=== PATIENT | male | born 1945 | race Caucasian/White ===

== ENCOUNTER 2017-07-12 12:58 | Emergency (ER) | payer MEDICARE, OTHER ==
[~2017-07-12 12:58] MED LIST: CYCL1PAK PO; LISI40TA PO; MOBI7.5T PO; OCUV PO; PROT40TA PO; SIMV20 PO; TAB-TAB PO; VITA10002 PO
[2017-07-12 13:12] VITALS: BP 167/77; PULSE 95; RESP 20; TEMP 98.9; O2SAT 97
--- NOTE | 2017-07-12 13:27 | PD ---
HPI Chief Complaint: Musculoskeletal Complaint Time Seen by Provider: 13:26 Travel History International Travel<30 days: No Contact w/Intl Traveler<30days: No Traveled to known affect area: No History of Present Illness HPI 72-year-old patient came to the emergency room with history of left knee pain and swelling that started this time about a week ago. Patient says that a month ago he was in [place] on vacation when it started there. There was no associated trauma. Patient went to the emergency room and was given some medication for 3 days after taking which the pain and swelling had subsided. However once it started 1 week ago patient was already back in [facility] and went to see his orthopedist who had done the knee replacement surgery. He had done an x-ray in his office that he discussed with the patient that it was not related to his knee joint or hardware. Today patient says the swelling has been more than it has been in the past and he wanted to come in and be checked out. He says the knee feels warm. There is pain associated worse upon walking. Vital signs are stable otherwise. Patient takes one baby aspirin every day. [facility] Past Medical History Narrative Medical List of his past medical, surgical, social and family history reviewed from the nursing note. Arthritis: Yes Blood Disorders: No Cancer: No Cardiovascular Problems: No High Cholesterol: Yes Chemotherapy: No Diabetes: No Diminished Hearing: No Endocrine: No Gastrointestinal Disorders: Yes (REFLUX) GERD: Yes Glaucoma: Yes Genitourinary: No Hepatitis: No Hiatal Hernia: Yes Hypertension: Yes Immune Disorder: No Implanted Vascular Access Dvce: Yes Medical other: Yes (reflux,stomach ulcers,hiatel hernia.arthritis neck and back problems) Musculoskeletal: Yes (CHRONIC BACK PAIN, NECK, ARTHRITIS) Neurologic: Yes (NUMNESS, TINGLING BILAT LEGS) Psychiatric: No Respiratory: No Immunizations Current: Yes Radiation Therapy: No Thyroid Disease: No Ulcer: Yes Tetanus Vaccination: > 5 Years Influenza Vaccination: Yes Past Surgical History Abdominal Surgery: Yes (BILAT INGUINAL HERNIA REPAIR) AICD: No Arteriovenous Shunt: No Body Medical Devices: MESH HERNIA REPAIR, CERVICAL HARDWARE, lumbar rods Cardiac Surgery: No Ear Surgery: No Endocrine Surgery: No Eye Surgery: No Genitourinary Surgery: No Gynecologic Surgery: No Insulin Pump: No Joint Replacement: Yes (BILAT KNEES) Oral Surgery: Yes (sinus surgery) Pacemaker: No Thoracic Surgery: No Other Surgery: Yes (cervical fusion 3,4,5 ) Family History Family Hypercholesterolemia: Yes (high lipids) Social History Alcohol Use: Yes (Occ.) Tobacco Use: No Substance Use: No Allergies-Medications (Allergen,Severity, Reaction): Coded Allergies: No Known Allergies (Verified , 06/26/15) Comments No known drug allergies. Reported Meds & Prescriptions Reported Meds & Active Scripts Active Reported Protonix (Pantoprazole Sodium) 40 Mg Tab 40 Mg PO DAILY Multi-Vitamin Daily (Multiple Vitamin) 1 Tab Tab 1 Tab PO DAILY Meloxicam 7.5 Mg Tab 7.5 Mg PO DAILY Lisinopril 40 Mg Tab 40 Mg PO DAILY Simvastatin 80 Mg Tab 80 Mg PO DAILY Aspirin Low Dose (Aspirin) 81 Mg Chew 81 Mg CHEW DAILY Narrative Medication List of his home medications reviewed from the nursing note Review of Systems Except as stated in HPI: all other systems reviewed are Neg Musculoskeletal: Positive: Pain, Atrophy Physical Exam Narrative GENERAL: Awake, alert, no obvious distress SKIN: Focused skin assessment warm/dry. HEAD: Atraumatic. Normocephalic. EYES: Pupils equal and round. No scleral icterus. No injection or drainage. ENT: No nasal bleeding or discharge. Mucous membranes pink and moist. NECK: Trachea midline. No JVD. CARDIOVASCULAR: Regular rate and rhythm. No murmur appreciated. RESPIRATORY: No accessory muscle use. Clear to auscultation. Breath sounds equal bilaterally. GASTROINTESTINAL: Abdomen soft, non-tender, nondistended. Hepatic and splenic margins not palpable. MUSCULOSKELETAL: No obvious deformities. No clubbing. No cyanosis. No edema. Left knee is swollen and slightly warm to touch. No erythema NEUROLOGICAL: Awake and alert. No obvious cranial nerve deficits. Motor grossly within normal limits. Normal speech. PSYCHIATRIC: Appropriate mood and affect; insight and judgment normal. Data Data Last Documented VS Orders Orders Complete Blood Count With Diff (07/12/17 13:32) Basic Metabolic Panel (Bmp) (07/12/17 13:32) C-Reactive Protein (Crp) (07/12/17 13:32) Uric Acid (07/12/17 13:32) Westergren Sedimentation Rate (07/12/17 13:32) Knee, Complete (4vws) (07/12/17 ) Synovial Fluid Crystals (07/12/17 15:40) Fluid Culture And Gram Stain (07/12/17 15:40) ^ Knee Immobilizer (07/12/17 15:40) Ed Discharge Order (07/12/17 15:45) Splint Or Brace Apply/Monitor (07/12/17 15:55) Labs Laboratory Tests Test 07/12/17 13:40 07/12/17 15:45 White Blood Count 5.4 TH/MM3 Red Blood Count 4.21 MIL/MM3 Hemoglobin 12.6 GM/DL Hematocrit 38.1 % Mean Corpuscular Volume 90.5 FL Mean Corpuscular Hemoglobin 30.0 PG Mean Corpuscular Hemoglobin Concent 33.1 % Red Cell Distribution Width 14.8 % Platelet Count 251 TH/MM3 Mean Platelet Volume 8.7 FL Neutrophils (%) (Auto) 68.8 % Lymphocytes (%) (Auto) 18.5 % Monocytes (%) (Auto) 7.8 % Eosinophils (%) (Auto) 3.4 % Basophils (%) (Auto) 1.5 % Neutrophils # (Auto) 3.7 TH/MM3 Lymphocytes # (Auto) 1.0 TH/MM3 Monocytes # (Auto) 0.4 TH/MM3 Eosinophils # (Auto) 0.2 TH/MM3 Basophils # (Auto) 0.1 TH/MM3 CBC Comment DIFF FINAL Differential Comment Erythrocyte Sedimentation Rate 3 mm/hr Blood Urea Nitrogen 16 MG/DL Creatinine 1.10 MG/DL Random Glucose 117 MG/DL Calcium Level 8.9 MG/DL Uric Acid 4.2 MG/DL Sodium Level 142 MEQ/L Potassium Level 4.6 MEQ/L Chloride Level 111 MEQ/L Carbon Dioxide Level 27.3 MEQ/L Anion Gap 4 MEQ/L Estimat Glomerular Filtration Rate 65 ML/MIN C-Reactive Protein LESS THAN 0.29 MG/DL Synovial Fluid Crystals NONE MDM Medical Decision Making Medical Screen Exam Complete: Yes Emergency Medical Condition: Yes Medical Record Reviewed: Yes Differential Diagnosis Gout arthritis, reactive arthritis, septic arthritis Narrative Course 2:27 PM CRP, sed rate and uric acid is pending. Rest of the blood test results are back and within normal limit. X-ray of the knee shows moderate joint effusion. Patient would require at least a therapeutic arthrocentesis. 3:42 PM CRP is within normal limit. The sed rate and uric acid is still pending. I just finished tapping the knee joint. 60 mL's of bloody fluid was aspirated out. Patient tolerated the procedure well. Please refer to my procedure note. I am sending the fluid for crystals and Gram stain and culture. Patient will be sent home on knee immobilizer. He is already on diclofenac that was started by his orthopedist. I have asked him to follow-up with his orthopedist. Procedures Procedure Narrative Knee arthrocentesis: The area was cleaned with Betadine swabs 3. Medial superior approach was taken. The area was infiltrated with 1% lidocaine about 3 mL. 20 mL syringe attached to a an 18-gauge needle was inserted into the knee joint and fluid aspirated. Instantly blood-tinged serous fluid was aspirated. 40 mL was aspirated. When no more fluid could be aspirated out the needle was taken out and pressure was held. Dressing and knee immobilizer will be applied by the nurse. Patient tolerated the procedure well. EKG Prior to Arrival: No Diagnosis Primary Impression: Knee pain Qualified Codes: M25.562 - Pain in left knee Additional Impression: Knee effusion Qualified Codes: M25.462 - Effusion, left knee Referrals: Primary Care Physician Additional Instructions: Keep the knee immobilizer on at all times except taking shower. Please follow- up with the orthopedist as soon as possible. Return to the ER if condition worsens or any other new concerns. Med/Other Pt SpecificInfo: No Change to Meds Disposition: 01 DISCHARGE HOME Condition: Stable Korey Walsh MD July 12, 2017 13:27
[2017-07-12] MEDS ORDERED: PROT40TA PO (13:28)
[2017-07-12] MEDS ORDERED: MELO7.5T27 PO (13:28)
[2017-07-12] MEDS ORDERED: MULT-65 PO (13:28)
[2017-07-12] MEDS ORDERED: SIMV80TA PO (13:28)
[2017-07-12] MEDS ORDERED: LISI40TA PO (13:28)
[2017-07-12] MEDS ORDERED: ASPI81CH6 CHEW (13:28)
[2017-07-12 14:03] LABS: CHLORIDE 111 MEQ/L (98-107); SODIUM (NA) 142 MEQ/L (136-145)
[2017-07-12 14:05] LABS: CALCIUM 8.9 MG/DL (8.5-10.1)
[2017-07-12 14:06] LABS: BICARBONATE 27.3 MEQ/L (21.0-32.0); BLOOD UREA NITROGEN 16 MG/DL (7-18); GLUCOSE,RANDOM 117 MG/DL (74-106)
--- NOTE | 2017-07-12 14:06 | RADRPT ---
EXAM DATE/TIME: 07/12/2017 13:45 [place] COMPARISON: No previous studies available for comparison. INDICATIONS : Left knee swelling, no known injury MEDICAL HISTORY : None. SURGICAL HISTORY : Total knee replacement, left. Total knee replacement, right. ENCOUNTER: Initial ACUITY: 3 days PAIN SCORE: 0/10 LOCATION: Left knee FINDINGS: 4 views of the left knee. Bone alignment within normal limits. No evidence of fracture. Total knee p rosthesis in place. No abnormal lucency at the bone prosthesis interfaces. A moderate-sized joint eff usion. CONCLUSION: Total knee prosthesis in place. Moderate-sized joint effusion. No evidence of fracture. Lan Ardon MD on July 12, 2017 at 14:00 Board Certified Radiologist. This report was verified electronically.
[2017-07-12 14:09] LABS: GLOMERULAR FILTRATION RATE 65 ML/MIN (>89)
[2017-07-12 14:11] LABS: AUTOMATED NEUTROPHIL # 3.7 TH/MM3 (1.8-7.7); BASOPHIL # 0.1 TH/MM3 (0-0.2); BASOPHIL % 1.5 % (0.0-2.0); EOSINOPHIL # 0.2 TH/MM3 (0-0.4); EOSINOPHIL % 3.4 % (0.0-4.0); HEMATOCRIT 38.1 % (39.0-51.0); HEMOGLOBIN 12.6 GM/DL (13.0-17.0); LYMPH % 18.5 % (9.0-44.0); MEAN CELL VOLUME 90.5 FL (80.0-100.0); MEAN CORPUSCULAR HGB CONC 33.1 % (32.0-36.0); MEAN PLATELET VOLUME 8.7 FL (7.0-11.0); MONO % 7.8 % (0.0-8.0); MONOCYTE # 0.4 TH/MM3 (0-0.9); NEUT % 68.8 % (16.0-70.0); PLATELET COUNT 251 TH/MM3 (150-450); RED BLOOD COUNT 4.21 MIL/MM3 (4.50-5.90); RED CELL DISTRIBUTION WIDTH 14.8 % (11.6-17.2); WHITE BLOOD COUNT 5.4 TH/MM3 (4.0-11.0)
[2017-07-12 14:43] LABS: C-REACTIVE PROTEIN LESS THAN 0.29 MG/DL (0.00-0.30)
[2017-07-12 15:55] VITALS: BP 186/90; PULSE 88; RESP 16; O2SAT 96
== END 2017-07-12 15:59 | disposition home or self-care (01) ==
LOC: PHED 12:58
DX: M25.562 Pain in left knee (principal); M25.462 Effusion, left knee; M19.90 Unspecified osteoarthritis, unspecified site; E78.00 Pure hypercholesterolemia, unspecified; K21.9 Gastro-esophageal reflux disease without esophagitis; I10 Essential (primary) hypertension; G89.29 Other chronic pain; M54.9 Dorsalgia, unspecified; Z96.653 Presence of artificial knee joint, bilateral
CPT/HCPCS: 20610; 73564; 80048; 84550; 85025; 85652; 86140; 87070; 87205; 89060

== ENCOUNTER 2017-10-29 05:40 | Inpatient (IN) ==
[2017-10-29] MEDS ORDERED: Morphine Inj 4 MG/ML Vial IV.PUSH ONE ×2 (05:50→05:58)
[2017-10-29] MEDS ORDERED: dilTIAZem Inj 125 MG in Sodium Chlor 0.9% Inj 100 ML IV.CONT PRN (05:51)
[2017-10-29] MEDS ORDERED: HYDROmorphone PF Inj 2 MG/ML Vial IV.PUSH ONE ×2 (06:06→07:09)
[2017-10-29 06:16] LABS: Baso # (Auto) 0.2 th/mm3 (0.0-0.2); Baso % (Auto) 0.9 % (0.0-2.0); Hematocrit 42.1 % (39.0-51.0); Hemoglobin 14.7 gm/dL (13.0-17.0); Lymph # (Auto) 2.5 th/mm3 (1.0-4.8); Lymph % (Auto) 10.6 % (9.0-44.0); Mean Corpuscular HGB Conc 34.9 % (32.0-36.0); Mean Corpuscular Volume 88.8 fL (80.0-100.0); Mean Platelet Volume 8.9 fL (7.0-11.0); Mono # (Auto) 0.5 th/mm3 (0.0-0.9); Mono % (Auto) 2.3 % (0.0-8.0); Neut # (Auto) 20.3 th/mm3 (1.8-7.7); Neut % (Auto) 86.2 % (16.0-70.0); Platelet Count 556 th/mm3 (150-450); Red Blood Count 4.74 mil/mm3 (4.50-5.90); Red Cell Distribution Width 15.4 % (11.6-17.2); White Blood Count 23.5 th/mm3 (4.0-11.0)
[2017-10-29] MEDS ORDERED: Piperacil/Tazo 4.5 GM Premix 4.5 GM/100 ML BAG IV.SIG ONE (06:24)
[2017-10-29 06:27] LABS: Chloride 95 meq/L (98-107); Potassium 3.5 meq/L (3.5-5.1); Sodium 133 meq/L (136-145)
[2017-10-29 06:30] LABS: Activated Partial Thrombo Time 26.6 sec (24.3-30.1); Calcium 9.5 mg/dL (8.5-10.1); INR 1.1 Ratio; Prothrombin Time 11.2 sec (9.8-11.6)
[2017-10-29 06:31] LABS: Albumin 3.3 g/dL (3.4-5.0); Anion Gap 14 meq/L (5-15); Blood Urea Nitrogen 16 mg/dL (7-18); Carbon Dioxide 23.9 meq/L (21.0-32.0); Glucose,Random 184 mg/dL (74-106); Lipase 103 U/L (73-393)
--- NOTE | 2017-10-29 06:31 | ED ---
HPI General Chief Complaint: Abdominal Pain Stated Complaint: Abd pain Time Seen by Provider: 10/29/17 05:46 Source: patient Mode of arrival: ambulatory Limitations: no limitations History of Present Illness HPI narrative: 72-year-old male presents to the emergency department by private transportation for complaint of severe progressively worsening right-sided right lower quadrant abdominal pain. No nausea no vomiting no chest pain no shortness of breath. Patient states pain is severe. No prior history of similar symptoms. No abdominal surgeries. Patient does have history of hypertension dyslipidemia GERD denies tobacco use. Patient is under care of the [facility]. Patient's had no fever but has noted shaking chills. Patient is unable to identify exacerbating or relieving. Pain is sharp and constant. Patient is not diabetic. Patient denies cardiac disease patient denies history of irregular heartbeat patient is on no blood thinning agents except does take antiplatelet therapy low-dose aspirin daily. MD complaint: abdominal pain Onset (ago): hour(s) (3) Pain Consistency: constant Location: RLQ Severity: severe Quality: sharp Radiation: none Migration to: no migration Relieving factors: nothing Exacerbating factors: nothing Associated symptoms: denies other symptoms, nausea and chills Treatments prior to arrival: other (none) Related Data Home Medications Medication Instructions Recorded Confirmed aspirin [Adult Low Dose Aspirin] 81 mg PO DAILY 10/17/17 10/29/17 lisinopril 40 mg PO DAILY 10/17/17 10/29/17 meloxicam 7.5 mg PO DAILY 10/17/17 10/29/17 multivitamin [Daily Multiple] 1 tab PO DAILY 10/17/17 10/29/17 pantoprazole 40 mg PO DAILY 10/17/17 10/29/17 simvastatin 80 mg PO DAILY 10/17/17 10/29/17 Allergies Allergy/AdvReac Type Severity Reaction Status Date / Time No Known Allergies Allergy Verified 10/29/17 06:16 Review of Systems ROS: all other systems reviewed are negative PMFSH History History Provided By: Medical Record Social History Social History Substance History: No History of Abuse Smoking Status: Former smoker How Often Do You Have a Drink Containing Alcohol: 2 to 4 times a month Recent Travel in [facility] within the Last 8 Weeks: No Recent Out of Country Travel within the Last 8 Weeks: No Exam Narrative Exam Narrative: GENERAL: Well-nourished, well-developed patient. In acute respiratory distress with pallor GCS of 15. Upon placement on bus driver/monitor patient found to be in and supraventricular tachycardia on monitor appears consistent with flutter fibrillation. O2 saturation 88%. Hypertensive blood pressure with tachypnea normothermic. SKIN: Focused skin assessment warm/dry. HEAD: Normocephalic. EYES: No scleral icterus. No injection or drainage. NECK: Supple, trachea midline. No JVD or lymphadenopathy. CARDIOVASCULAR: Increased irregular rate and rhythm without murmurs, gallops, or rubs. Bilateral radial and dorsalis pedis pulses 2+ to palpation. RESPIRATORY: Breath sounds equal bilaterally. No accessory muscle use. GASTROINTESTINAL: Abdomen soft, RUQ RLQ periumbilical tenderness with guarding and rebound, nondistended. MUSCULOSKELETAL: No cyanosis, or edema. BACK: Nontender without obvious deformity. No CVA tenderness. Course Consultations Consultation #1: discussed with Dr Sumeet Malloy cat skinner discussed with Dr Codi Lance Surgery Time: 07:39 Initial Documented Vital Signs Pulse Rate 15 L 10/29/17 05:45 Respiratory Rate 32 H 10/29/17 05:45 Blood Pressure 183/102 H 10/29/17 05:45 Pulse Oximetry 92 L 10/29/17 05:45 Last Documented Vital Signs Temperature 100.1 F H 10/29/17 07:50 Pulse Rate 123 H 10/29/17 07:50 Respiratory Rate 17 10/29/17 07:50 Blood Pressure 137/61 10/29/17 07:29 Pulse Oximetry 100 10/29/17 07:50 Critical Care Time Critical Care Time: Yes Total Critical Care Time: 40 Attestation: Aggregate critical care time was 40 minutes. Time to perform other separately billable procedures was not included in the critical care time. My time did not include minutes spent treating any other patients simultaneously or on activities that did not directly contribute to the patient's treatment. The services I provided to this patient were to treat and/or prevent clinically significant deterioration that could result in: septic shock, respiratory failure/arrest, I provided critical care services requiring my management, as noted below: Chart data review, documentation time, medication orders and management, vital sign assessments/reviewing monitor data, ordering and reviewing lab tests, ordering and interpreting/reviewing x-rays and diagnostic studies, care of the patient and discussion of the patient with the admitting physicians. Medical Decision Making MDM Narrative Medical decision making narrative: 72-year-old male with severe abdominal pain progressive worsening 3 hours with marked tenderness and no audible bowel sounds to auscultation with peripheral pulses 2+ and equal with SVT initially irregular concerning for atrial fibrillation atrial flutter hypertensive with O2 sat of 88% and mottling presents for shock unclear if due to hypovolemia or sepsis or both. Stat EKG performed consistent with SVT of 163 patient administered Cardizem 20 mg IV as well as morphine sulfate. Along with 2 L bolus of normal saline. Repeat pain medication Dilaudid 1 mg administered and Cardizem infusion ordered. Patient sent stat to CT for CTA thoracic and abdominal aorta On return from CT heart rate is 140 patient is now in a sinus tachycardia pain has improved CT is concerning for possible inflammatory stranding for possible abscess but no obvious thoracic or abdominal aortic dissection --city stent to radiologist as a stat reading patient administered Zosyn 4.5 g IV piggyback White cell count is 23,500 with hemoglobin of 14.7 bicarb is normal at 23.9 blood sugar 184 O2 saturations 98% on nonrebreather mask Lactic acid 5.9 CTA thor/abd aorta --per reading radiologist no aortic aneurysm or dissection atherosclerotic changes of the aorta acute cholecystitis with marked abnormal mural thickening of the gallbladder with pericholecystic inflammatory and edematous changes and numerous gallstones. Patient symptomatically and clinically improved. Patient's case discussed with on-call surgery cat skinner for admission and procedural intervention. Patient will be transferred to [facility] to the ICU to Dr. Luque's care and have spoken with Dr. Lance who has notified intervention. the OR regarding this patient. Medical Screen Exam Complete: Yes Emergency Medical Condition: Yes Lab Data Lab results reviewed: Yes I reviewed the patient's lab results. Result diagrams: 10/29/17 05:50 10/29/17 05:50 Lab Results 10/29/17 10/29/17 10/29/17 Range/Units 05:50 05:50 05:50 CBC w Diff Slide review pending WBC 23.5 H (4.0-11.0) th/mm3 RBC 4.74 (4.50-5.90) mil/mm3 Hgb 14.7 (13.0-17.0) gm/dL Hct 42.1 (39.0-51.0) % MCV 88.8 (80.0-100.0) fL MCH 31.0 (27.0-34.0) pg MCHC 34.9 (32.0-36.0) % RDW 15.4 (11.6-17.2) % Plt Count 556 H (150-450) th/mm3 MPV 8.9 (7.0-11.0) fL Neut % (Auto) 86.2 H (16.0-70.0) % Lymph % (Auto) 10.6 (9.0-44.0) % [place] % (Auto) 2.3 (0.0-8.0) % Eos % (Auto) 0.0 (0.0-4.0) % Baso % (Auto) 0.9 (0.0-2.0) % Neut # (Auto) 20.3 H (1.8-7.7) th/mm3 Lymph # (Auto) 2.5 (1.0-4.8) th/mm3 [place] # (Auto) 0.5 (0.0-0.9) th/mm3 Eos # (Auto) 0.0 (0.0-0.4) th/mm3 Baso # (Auto) 0.2 (0.0-0.2) th/mm3 WBC Differential Manual diff final Seg Neuts % (Manual) 78 H (16-70) % Band Neuts % (Manual) 3 (0-6) % Lymphocytes % (Manual) 15 (9-44) % Monocytes % (Manual) 4 (0-8) % Abs Neuts (Manual) 19.0 H (1.8-7.7) th/mm3 Differential Comment . Platelet Estimate High H (Normal) Platelet Morphology Normal (Normal) PT 11.2 (9.8-11.6) sec INR 1.1 Ratio APTT 26.6 (24.3-30.1) sec Puncture Site Patient Temperature O2 Saturation ABG pH ABG pCO2 ABG pO2 ABG HCO3 ABG O2 Content ABG Base Excess ABG Methemoglobin Bruce Test Hemoglobin Carboxyhemoglobin O2 Delivery Device Liter Flow Vent Setting Inspired O2 Critical Value Sodium 133 L (136-145) meq/L Potassium 3.5 (3.5-5.1) meq/L Chloride 95 L (98-107) meq/L Carbon Dioxide 23.9 (21.0-32.0) meq/L Anion Gap 14 (5-15) meq/L BUN 16 (7-18) mg/dL Creatinine 1.80 H (0.60-1.30) mg/dL Estimated GFR 37 L (>89) mL/min POC Glucose (68-110) mg/dl Random Glucose 184 H (74-106) mg/dL Lactic Acid (0.4-2.0) mmol/L Calcium 9.5 (8.5-10.1) mg/dL Total Bilirubin 1.2 H (0.2-1.0) mg/dL AST 16 (15-37) U/L ALT 34 (12-78) U/L Alkaline Phosphatase 110 (45-117) U/L Total Creatine Kinase 39 (39-308) U/L Troponin I Less than 0.02 L (0.02-0.05) ng/mL Total Protein 8.6 H (6.4-8.2) g/dL Albumin 3.3 L (3.4-5.0) g/dL Lipase 103 (73-393) U/L Ur Collection Type Urine Color (Yellw/Straw) Urine Clarity (Clear) Urine pH (5.0-8.5) Ur Specific [place] (1.002-1.035) Urine Protein (Neg-Trace) mg/dL Urine Glucose (UA) (Negative) mg/dL Urine Ketones (Negative) mg/dL Urine Occult Blood (Negative) Urine Nitrate (Negative) Urine Bilirubin (Negative) Urine Urobilinogen (Less than 2) mg/dL Ur Leukocyte Esterase (Negative) Urine RBC (0-3) /hpf Hyaline Casts (0-3) /lpf Coarse Granular Casts (None) /lpf Micro UA Comment Urine Culture Comments 10/29/17 10/29/17 10/29/17 Range/Units 05:50 06:01 06:01 CBC w Diff WBC (4.0-11.0) th/mm3 RBC (4.50-5.90) mil/mm3 Hgb (13.0-17.0) gm/dL Hct (39.0-51.0) % MCV (80.0-100.0) fL MCH (27.0-34.0) pg MCHC (32.0-36.0) % RDW (11.6-17.2) % Plt Count (150-450) th/mm3 MPV (7.0-11.0) fL Neut % (Auto) (16.0-70.0) % Lymph % (Auto) (9.0-44.0) % [place] % (Auto) (0.0-8.0) % Eos % (Auto) (0.0-4.0) % Baso % (Auto) (0.0-2.0) % Neut # (Auto) (1.8-7.7) th/mm3 Lymph # (Auto) (1.0-4.8) th/mm3 [place] # (Auto) (0.0-0.9) th/mm3 Eos # (Auto) (0.0-0.4) th/mm3 Baso # (Auto) (0.0-0.2) th/mm3 WBC Differential Seg Neuts % (Manual) (16-70) % Band Neuts % (Manual) (0-6) % Lymphocytes % (Manual) (9-44) % Monocytes % (Manual) (0-8) % Abs Neuts (Manual) (1.8-7.7) th/mm3 Differential Comment Platelet Estimate (Normal) Platelet Morphology (Normal) PT (9.8-11.6) sec INR Ratio APTT (24.3-30.1) sec Puncture Site Cancelled Right radial Patient Temperature Cancelled 98.6 O2 Saturation Cancelled 97 ABG pH Cancelled 7.40 ABG pCO2 Cancelled 28 L ABG pO2 Cancelled 137 H ABG HCO3 Cancelled 17 L ABG O2 Content Cancelled 17.7 ABG Base Excess Cancelled -6.9 L ABG Methemoglobin Cancelled 1.3 Bruce Test Cancelled + Hemoglobin Cancelled 12.9 Carboxyhemoglobin Cancelled 1.2 O2 Delivery Device Cancelled Nasal cannula Liter Flow Cancelled 4.00 Vent Setting Cancelled Inspired O2 Cancelled 21 Critical Value Cancelled No Sodium (136-145) meq/L Potassium (3.5-5.1) meq/L Chloride (98-107) meq/L Carbon Dioxide (21.0-32.0) meq/L Anion Gap (5-15) meq/L BUN (7-18) mg/dL Creatinine (0.60-1.30) mg/dL Estimated GFR (>89) mL/min POC Glucose (68-110) mg/dl Random Glucose (74-106) mg/dL Lactic Acid 5.9 H* (0.4-2.0) mmol/L Calcium (8.5-10.1) mg/dL Total Bilirubin (0.2-1.0) mg/dL AST (15-37) U/L ALT (12-78) U/L Alkaline Phosphatase (45-117) U/L Total Creatine Kinase (39-308) U/L Troponin I (0.02-0.05) ng/mL Total Protein (6.4-8.2) g/dL Albumin (3.4-5.0) g/dL Lipase (73-393) U/L Ur Collection Type Urine Color (Yellw/Straw) Urine Clarity (Clear) Urine pH (5.0-8.5) Ur Specific [place] (1.002-1.035) Urine Protein (Neg-Trace) mg/dL Urine Glucose (UA) (Negative) mg/dL Urine Ketones (Negative) mg/dL Urine Occult Blood (Negative) Urine Nitrate (Negative) Urine Bilirubin (Negative) Urine Urobilinogen (Less than 2) mg/dL Ur Leukocyte Esterase (Negative) Urine RBC (0-3) /hpf Hyaline Casts (0-3) /lpf Coarse Granular Casts (None) /lpf Micro UA Comment Urine Culture Comments 10/29/17 10/29/17 Range/Units 07:17 07:23 CBC w Diff WBC (4.0-11.0) th/mm3 RBC (4.50-5.90) mil/mm3 Hgb (13.0-17.0) gm/dL Hct (39.0-51.0) % MCV (80.0-100.0) fL MCH (27.0-34.0) pg MCHC (32.0-36.0) % RDW (11.6-17.2) % Plt Count (150-450) th/mm3 MPV (7.0-11.0) fL Neut % (Auto) (16.0-70.0) % Lymph % (Auto) (9.0-44.0) % [place] % (Auto) (0.0-8.0) % Eos % (Auto) (0.0-4.0) % Baso % (Auto) (0.0-2.0) % Neut # (Auto) (1.8-7.7) th/mm3 Lymph # (Auto) (1.0-4.8) th/mm3 [place] # (Auto) (0.0-0.9) th/mm3 Eos # (Auto) (0.0-0.4) th/mm3 Baso # (Auto) (0.0-0.2) th/mm3 WBC Differential Seg Neuts % (Manual) (16-70) % Band Neuts % (Manual) (0-6) % Lymphocytes % (Manual) (9-44) % Monocytes % (Manual) (0-8) % Abs Neuts (Manual) (1.8-7.7) th/mm3 Differential Comment Platelet Estimate (Normal) Platelet Morphology (Normal) PT (9.8-11.6) sec INR Ratio APTT (24.3-30.1) sec Puncture Site Patient Temperature O2 Saturation ABG pH ABG pCO2 ABG pO2 ABG HCO3 ABG O2 Content ABG Base Excess ABG Methemoglobin Bruce Test Hemoglobin Carboxyhemoglobin O2 Delivery Device Liter Flow Vent Setting Inspired O2 Critical Value Sodium (136-145) meq/L Potassium (3.5-5.1) meq/L Chloride (98-107) meq/L Carbon Dioxide (21.0-32.0) meq/L Anion Gap (5-15) meq/L BUN (7-18) mg/dL Creatinine (0.60-1.30) mg/dL Estimated GFR (>89) mL/min POC Glucose 122 H (68-110) mg/dl Random Glucose (74-106) mg/dL Lactic Acid (0.4-2.0) mmol/L Calcium (8.5-10.1) mg/dL Total Bilirubin (0.2-1.0) mg/dL AST (15-37) U/L ALT (12-78) U/L Alkaline Phosphatase (45-117) U/L Total Creatine Kinase (39-308) U/L Troponin I (0.02-0.05) ng/mL Total Protein (6.4-8.2) g/dL Albumin (3.4-5.0) g/dL Lipase (73-393) U/L Ur Collection Type Cath Urine Color Yellow (Yellw/Straw) Urine Clarity Clear (Clear) Urine pH 5.5 (5.0-8.5) Ur Specific [place] Less/equal 1.005 (1.002-1.035) Urine Protein 30 H (Neg-Trace) mg/dL Urine Glucose (UA) Negative (Negative) mg/dL Urine Ketones Negative (Negative) mg/dL Urine Occult Blood Trace (Negative) Urine Nitrate Negative (Negative) Urine Bilirubin Negative (Negative) Urine Urobilinogen 0.2 (Less than 2) mg/dL Ur Leukocyte Esterase Negative (Negative) Urine RBC 0-3 (0-3) /hpf Hyaline Casts 0-3 (0-3) /lpf Coarse Granular Casts 1-3 H (None) /lpf Micro UA Comment Cath-culture not ind Urine Culture Comments Cath-cult not ind Imaging Data Radiologist's impression: Chest X-Ray 10/29/17 05:46 CONCLUSION: Negative examination. Thoracic Aorta CT 10/29/17 06:03 CONCLUSION: 1. Acute cholecystitis with gallbladder wall thickening, pericholecystic inflammatory and edematous changes and numerous gallstones. 2. Negative for abdominal or thoracic aortic aneurysm or dissection. 3. Mild ascites. Previous fusion lumbar spine. ECG Data EKG Prior to Arrival: No Attestation: I personally reviewed and interpreted this ECG as follows: Prior ECG tracings: not available for review Interpretation: EKG: SVT and atrial flutter rate of [address] elevation pattern or ectopy noted marked artifact is present at baseline Discharge Plan Discharge Disposition Patient Disposition: 30 Still Patient Discharge Condition Condition: Serious Discharge Details Diagnosis: Cholecystitis, acute with cholelithiasis, Ascending cholangitis, Sepsis Physicians Team ED Provider: Feli Mclean Primary Care Provider: [facility],Physician [facility] Attending Provider: Rich Malloy Status ED Status: Admitted Patient
[2017-10-29 06:34] LABS: Alanine Aminotransferase 34 U/L (12-78); Aspartate Aminotransferase 16 U/L (15-37); Glomerular Filtration Rate 37 mL/min (>89)
[2017-10-29 06:35] LABS: Total Protein 8.6 g/dL (6.4-8.2)
[2017-10-29 06:36] LABS: Alkaline Phosphatase 110 U/L (45-117)
--- NOTE | 2017-10-29 06:36 | XR ---
EXAM DATE: 10/29/2017 6:10 AM EDT AGE/SEX: 72 years / Male INDICATIONS: Abdominal pain, shortness of breath. CLINICAL DATA: This is the patient's initial encounter. Patient reports that signs and symptoms have been present for 1 day and indicates a pain score of Nonresponsive. MEDICAL/SURGICAL HISTORY: Non-responsive. Non-responsive. COMPARISON: [facility] [place] & LAT, 08/28/2011. . FINDINGS: A single AP view of the chest demonstrates the lungs to be symmetrically aerated without evidence of mass, infiltrate or effusion. The cardiomediastinal contours are unremarkable. Osseous structures a re intact. CONCLUSION: Negative examination. Electronically signed by: Arsalan Luque MD 10/29/2017 6:35 AM EDT
[2017-10-29 06:39] LABS: Creatine Kinase 39 U/L (39-308)
[2017-10-29 06:45] LABS: Lymphocytes 15 % (9-44); Monocytes 4 % (0-8)
[2017-10-29 06:46] LABS: Platelet Morphology Normal (Normal)
[2017-10-29] MEDS ORDERED: Sod Chloride 0.9% Inj 1,000 ML IV.SIG ONE ×2 (07:08→20:52)
--- NOTE | 2017-10-29 07:08 | CT ---
EXAM DATE: 10/29/2017 6:47 AM EDT AGE/SEX: 72 years / Male INDICATIONS: Abdominal pain. Evaluate for dissection. CLINICAL DATA: This is the patient's initial encounter. Patient reports that signs and symptoms have been present for 1 day and indicates a pain score of 10/10. MEDICAL/SURGICAL HISTORY: Gastroesophageal reflux disease. Hiatal hernia. Ulcers. Hypertension. Inguinal hernia repair. Lumbar laminectomy. RADIATION DOSE: 21.04 CTDI (mGy) COMPARISON: No prior exams available for comparison. TECHNIQUE: Volumetric scanning was performed using a multi-row detector CT scanner during bolus infu daniele of 100 ml Omnipaque 350 (iohexol) nonionic water-soluble contrast as a single exam dose. The d gama was post processed with a variety of visualization algorithms including full volume maximum inten sity projection, multi-planar sliding thin slab reformation, curved planar reformation, and surface r endering techniques. Using automated exposure control and adjustment of the mA and/or kV according t o patient size, radiation dose was kept as low as reasonably achievable to obtain optimal diagnostic quality images. DICOM format image data is available electronically for review and comparison. FINDINGS: There is no aortic aneurysm or dissection. There is mild to moderate atherosclerotic change in the ao rta. There is mild emphysema. Minimal basilar atelectasis or scarring. Small hiatal hernia. On abdomen CT there is markedly abnormal mural thickening of the gallbladder with pericholecystic inf lammatory and edematous changes in numerous gallstones characteristic of acute cholecystitis. There is mild fatty liver with scattered tiny cysts. No acute findings in the spleen, adrenals, kidne ys or pancreas. There is a small amount of free fluid around the liver and within the pelvis. Colonic diverticulosis without diverticulitis. Previous fusion lower lumbar spine and across the lumb osacral junction. CONCLUSION: 1. Acute cholecystitis with gallbladder wall thickening, pericholecystic inflammatory and edematous changes and numerous gallstones. 2. Negative for abdominal or thoracic aortic aneurysm or dissection. 3. Mild ascites. Previous fusion lumbar spine. Electronically signed by: Matt Marinelli MD 10/29/2017 7:07 AM EDT
[2017-10-29] MEDS ORDERED: Vancomycin Inj 1,000 MG in Sodium Chlor 0.9% Inj 250 ML IV.SIG ONE (07:10)
[2017-10-29 07:15] LABS: ABG Base Excess -6.9 mmol/L (-2-2); ABG PCO2 28 mmHg (38-42); ABG PO2 137 mmHg (61-120)
[2017-10-29 07:32] LABS: Bilirubin,Urine Negative (Negative); Clarity,Urine Clear (Clear); Color,Urine Yellow (Yellw/Straw); Glucose,Urine (UA) Negative (Negative); Leukocyte Esterase,Urine Negative (Negative); Nitrite,Urine Negative (Negative); PH,Urine 5.5 (5.0-8.5); Specific Gravity,Urine Less/Equal 1.005 (1.002-1.035); Urobilinogen,Urine 0.2 mg/dL (Less than 2)
[2017-10-29] MEDS ORDERED: Potassium Chlor 40 mEq Premix 40 MEQ/100 ML PIGGYBACK IV.SIG PRN ×2 (07:40)
[2017-10-29] MEDS ORDERED: Magnesium Sulfate Inj 2 GM in Sodium Chlor 0.9% Inj 96 ML IV.SIG PRN (07:40)
[2017-10-29] MEDS ORDERED: Magnesium Sulfate Inj 4 GM in Sodium Chlor 0.9% Inj 92 ML IV.SIG PRN (07:40)
[2017-10-29] MEDS ORDERED: Potassium Phosphate Inj 30 MMOL in Sodium Chlor 0.9% Inj 250 ML IV.SIG PRN (07:40)
[2017-10-29] MEDS ORDERED: Potassium Chloride 25 MEQ Effervescent Tablet PO PRN (07:40)
[2017-10-29] MEDS ORDERED: Potassium Phosphate 500 MG Soluble Tablet PO PRN ×2 (07:40)
[2017-10-29] MEDS ORDERED: Magnesium Oxide 400 MG Tablet PO PRN (07:40)
[2017-10-29] MEDS ORDERED: Sodium Phosphate Inj 30 MMOL in Sodium Chlor 0.9% Inj 250 ML IV.SIG PRN (07:40)
[2017-10-29 07:42] LABS: Hyaline Casts,Urine 0-3 /lpf (0-3); RBC,Urine 0-3 /hpf (0-3)
[2017-10-29] MEDS: Sod Chloride 0.9% Inj 1,000 ML IV.CONT SCH ×4 (08:25→23:00)
[2017-10-29] MEDS: Heparin - SQ 10,000 UNITS/ML Vial SQ SCH ×2 (08:27→16:24)
[2017-10-29] MEDS ORDERED: Famotidine PF Inj 20 MG/2 ML Vial IV.PUSH SCH (09:00)
[2017-10-29] MEDS ORDERED: Famotidine 20 MG Tablet PO SCH (09:00)
[2017-10-29] MEDS ORDERED: Lidocaine PF 1% Inj 5 ML Syringe INFILTRATN ONE (09:48)
[2017-10-29] MEDS ORDERED: Phenylephrine/NS 1000 MCG/10ML Syringe IV.PUSH ONE (09:48)
--- NOTE | 2017-10-29 09:55 | P.HPCC ---
History of Present Illness Service: Critical care medicine. Primary Care Physician: [facility] Chief Complaint: Abdominal pain. History of Present Illness: This otherwise healthy 72-year-old active gentleman has had nagging abdominal pain for about a week. It is reached a crescendo pattern where he is buckled over and discomfort and presents to the [place] emergency department where CAT scan of the abdomen reveals a markedly inflamed gallbladder with surrounding phlegmon/edema. A thoracic aortogram obtained at the same time to rule out dissection is normal. In the emergency department he developed a supraventricular tachycardia in the 160s. This was treated initially with Cardizem at [place] and I have started to load him with beta-brown for prevention of recurrence. Additional immediate problems include acute kidney injury with a creatinine 1.8 related to his inability to keep food down and some vomiting earlier. He denies wheezing or shortness of breath but his CAT scan reveals some minor emphysema. The lung parenchyma is generally sound for his age. He has been loaded with antibiotics and hydrated with isotonic crystalloid. Heart rate is now well controlled. He is medically clear for surgery. His low-level sepsis and dehydration obviously increases risk for surgery. - Diagnosis (1) Severe sepsis with acute organ dysfunction (2) Cholecystitis, acute with cholelithiasis (3) KENNY (acute kidney injury) (4) Paroxysmal SVT (supraventricular tachycardia) Inpatient Certification: I certify that the inpatient services were ordered in accordance with Medicare regulations governing the order. This includes certification that hospital inpatient services are reasonable and necessary and in the case of services not specified as inpatient-only under 42 CFR 419.22(n), that they are appropriately provided as inpatient services in accordance to with the 2-midnight benchmark under 43 CFR 412.3(e) Estimated Total Length of Stay (Days): 7 Plans for Post Hospital Care: Not yet determined Review of Systems He does not have chest pain or shortness of breath even when undergoing strenuous exercise. He has had abdominal pain with vomiting for several days now. PMFSH - History History Provided By: Medical Record - Medical / Surgical Hx Neg / Unobtainable Medical Problems Denied: Yes Surgical History: Unable to Obtain - Medical History Medical History: Medical History (Last Reviewed 11/06/17 @ 07:49 by Steve Orona) Arthritis Claustrophobia GERD (gastroesophageal reflux disease) Glaucoma Heartburn Hiatal hernia High cholesterol Hx of gastric ulcer Hx of spinal stenosis Hypertension Lumbago Neck pain Pain in joint of left knee Rotator cuff arthropathy of left shoulder Tendonitis of both wrists Wears dentures Wears glasses - Surgical History Surgical History: Surgical History (Last Reviewed 11/06/17 @ 07:50 by Steve Orona) History of arthroscopy History of fusion of cervical spine History of inguinal hernia repair, bilateral History of lumbar laminectomy for spinal cord decompression History of total bilateral knee replacement (TKR) Hx of foot surgery Hx of sinus surgery S/P wrist surgery - Tobacco History Tobacco Use In Past 30 Days: No Smoking Status: Former smoker - Alcohol History How Often Do You Have a Drink Containing Alcohol: 2 to 4 times a month - Substance Use History Substance History: No History of Abuse - Travel History History of Recent Travel: No Recent Travel in the [place] Within the Last 8 Weeks: No Recent Travel Out of the Country Within the Last 8 Weeks: No - Immunization History Tetanus Immunization: >5 Years Hx Influenza Vaccine This Season: Yes Pediatric Immunizations Up to Date: Yes Medications and Allergies Active Medications: Active Medications Albuterol (Duoneb Neb (Prn)) 1 ampul NEB Q2HR NEB PRN PRN Reason: WHEEZING Chlorhexidine Gluconate (Chlorhexidine 2% Cloth) 3 pack TOPICAL DAILY@0400 ADITYA Stop: 11/04/17 03:59 Chlorhexidine Gluconate (Chlorhexidine 2% Cloth) 3 pack TOPICAL DAILY@0400 PRN PRN Reason: Extra cloth needed Stop: 11/04/17 03:59 Famotidine (Pepcid Pf Inj) 20 mg IV.PUSH Q12HR [facility] Heparin Sodium (Porcine) (Heparin Inj) 5,000 units SQ Q8H [facility] Last Admin: 10/29/17 08:27 Dose: 5,000 units Diltiazem HCl 125 mg/ Sodium (Chloride) 125 mls @ 5 mls/hr IV.CONT TITRATE PRN ; Protocol PRN Reason: Per Protocol Magnesium Sulfate Inj 4 gm/ (Sodium Chloride) 100 mls @ 50 mls/hr IV.SIG UNSCH PRN PRN Reason: For Magnesium 0.9 - 1.1 mg/dL Magnesium Sulfate Inj 2 gm/ (Sodium Chloride) 100 mls @ 50 mls/hr IV.SIG UNSCH PRN PRN Reason: For Magnesium 1.2 - 1.6 mg/dL Potassium Chloride (Kcl 40 Meq Premix Inj) 40 meq in 100 mls @ 25 mls/hr IV.SIG Q2H PRN PRN Reason: For Potassium 2.8 - 3.2 mEq/L Potassium Chloride (Kcl 20 Meq Premix Inj) 20 meq in 100 mls @ 50 mls/hr IV.SIG Q2H PRN PRN Reason: For Potassium 3.3 - 3.5 mEq/L Potassium Chloride (Kcl 40 Meq Premix Inj) 40 meq in 100 mls @ 25 mls/hr IV.SIG UNSCH PRN PRN Reason: For Potassium 3.3 - 3.5 mEq/L Potassium Chloride (Kcl 20 Meq Premix Inj) 20 meq in 100 mls @ 50 mls/hr IV.SIG Q2H PRN PRN Reason: For Potassium 2.8 - 3.2 mEq/L Potassium Phosphate 30 mmol/ (Sodium Chloride) 260 mls @ 42 mls/hr IV.SIG UNSCH PRN PRN Reason: SEE LABEL COMMENTS Sodium Phosphate 30 mmol/ (Sodium Chloride) 260 mls @ 42 mls/hr IV.SIG UNSCH PRN PRN Reason: For Phosphorus < 2.5 mg/dL Piperacillin/Tazobactam/Dextrose (Zosyn 4.5 Gm Premix) 4.5 gm in 100 mls @ 200 mls/hr IV.SIG Q6H ADITYA Lactated Ringer's (Lr 1000 Ml Inj) 1,000 mls @ 125 mls/hr IV.CONT .Q8H ADITYA Sodium Chloride (Ns Inj) 1,000 mls @ 125 mls/hr IV.CONT .Q8H ADITYA Last Infusion: 10/29/17 08:56 Dose: 125 mls/hr Sodium Chloride (Ns Inj) 2,000 mls @ 0 mls/hr IV.SIG BOLUS ONE Stop: 10/29/17 10:01 Magnesium Oxide (Mag-Ox) 800 mg PO UNSCH PRN PRN Reason: For Magnesium 1.2 - 1.6 mg/dL Metoprolol Tartrate (Lopressor Inj) 5 mg IV.PUSH Q6H PRN PRN Reason: Pulse > 130 Metoprolol Tartrate (Lopressor) 25 mg PO BID ADITYA Ondansetron HCl (Zofran Inj) 4 mg IV.PUSH Q6H PRN PRN Reason: NAUSEA OR VOMITING Potassium Bicarb/Potassium Chloride (K-Lyte Cl Eff) 50 meq PO UNSCH PRN PRN Reason: For Potassium 3.3 - 3.5 mEq/L Potassium Phosphate (K-Phos Original) 2,000 mg PO Q4H PRN PRN Reason: Phosphorus Less Than 2.5 mg/dL Potassium Phosphate (K-Phos Original) 2,000 mg PO UNSCH PRN PRN Reason: SEE LABEL COMMENTS Sodium Chloride (Ns Flush) 2 ml IV.FLUSH PRN PRN PRN Reason: FLUSH AFTER USING IV ACCESS Sodium Chloride (Ns Flush) 2 ml IV.FLUSH BID ADITYA Sodium Chloride (Ns Flush) 2 ml IV.FLUSH PRN PRN PRN Reason: FLUSH AFTER USING IV ACCESS Allergies Allergy/AdvReac Type Severity Reaction Status Date / Time No Known Allergies Allergy Verified 10/29/17 06:16 Home Medications Medication Instructions Recorded Confirmed Type multivitamin [Daily Multiple] 1 tab PO DAILY 10/17/17 10/29/17 History pantoprazole 40 mg PO DAILY 10/17/17 10/29/17 History simvastatin 80 mg PO DAILY 10/17/17 10/29/17 History Results - Labs CBC & Chem 7: 11/07/17 03:50 11/07/17 03:50 Labs: Short CBC 10/29/17 Range/Units 05:50 WBC 23.5 H (4.0-11.0) th/mm3 Hgb 14.7 (13.0-17.0) gm/dL Hct 42.1 (39.0-51.0) % Plt Count 556 H (150-450) th/mm3 BMP 10/29/17 05:50 Sodium 133 L Potassium 3.5 Chloride 95 L Carbon Dioxide 23.9 BUN 16 Creatinine 1.80 H Calcium 9.5 Cardiac Enzymes 10/29/17 Range/Units 05:50 Total Creatine Kinase 39 (39-308) U/L Troponin I Less than 0.02 L (0.02-0.05) ng/mL Liver Function 10/29/17 Range/Units 05:50 Total Bilirubin 1.2 H (0.2-1.0) mg/dL AST 16 (15-37) U/L ALT 34 (12-78) U/L Alkaline Phosphatase 110 (45-117) U/L Albumin 3.3 L (3.4-5.0) g/dL Urine 10/29/17 Range/Units 07:17 Urine Color Yellow (Yellw/Straw) Urine Clarity Clear (Clear) Urine pH 5.5 (5.0-8.5) Ur Specific [place] Less/equal 1.005 (1.002-1.035) Urine Protein 30 H (Neg-Trace) mg/dL Urine Glucose (UA) Negative (Negative) mg/dL - Imaging Impressions Chest X-Ray 10/29/17 05:46 CONCLUSION: Negative examination. Thoracic Aorta CT 10/29/17 06:03 CONCLUSION: 1. Acute cholecystitis with gallbladder wall thickening, pericholecystic inflammatory and edematous changes and numerous gallstones. 2. Negative for abdominal or thoracic aortic aneurysm or dissection. 3. Mild ascites. Previous fusion lumbar spine. Exam Vital signs: Vital Signs 10/29/17 05:45 10/29/17 05:46 10/29/17 05:52 Temperature 98.9 F Pulse Rate 15 L 136 H 154 H Respiratory Rate 32 H 24 28 H Blood Pressure 183/102 H 126/66 183/102 H Pulse Oximetry 92 L 98 95 10/29/17 06:10 10/29/17 06:45 10/29/17 06:57 Temperature Pulse Rate 152 H 134 H Respiratory Rate 32 H 24 Blood Pressure 152/69 H 147/63 H Pulse Oximetry 94 L 100 99 10/29/17 07:19 10/29/17 07:29 10/29/17 07:39 Temperature Pulse Rate 125 H 119 H Respiratory Rate 18 18 18 Blood Pressure 133/63 137/61 Pulse Oximetry 100 100 10/29/17 07:50 10/29/17 07:59 10/29/17 08:29 Temperature 100.1 F H Pulse Rate 123 H 118 H Respiratory Rate 17 18 17 Blood Pressure 117/65 Pulse Oximetry 100 Intake & Output 10/28/17 10/29/17 10/29/17 18:59 06:59 18:59 Intake Total 1422 / 1422 Output Total 200 / 200 Balance 1222 / 1222 Intake: IV 1422 / 1422 NS Inj 1,000 ML @ 125 mls/hr IV 72 / 72 .CONT .Q8H ADITYA Rx#:[id number] Zosyn 4.5 GM Premix 4.5 gm In 100 / 100 100 ml @ 200 mls/hr IV.SIG ONCE ONE Rx#:[id number] NS Inj 1,000 ML @ Wide Open IV. 1000 / 1000 SIG BOLUS ONE Rx#:[id number] Vancomycin Inj 1,000 MG In NS 250 / 250 Inj 250 ML @ 250 mls/hr IV.SIG ONCE ONE Rx#:[id number] Output: Urine Amount (Catheter) 200 / 200 Indwelling Urethral Catheter 200 / 200 Narrative: General: Alert conversant gentleman in considerable abdominal pain. Head: Atraumatic, normal Neck: Supple airway widely patent no obstructive noises. Lungs: Clear bilaterally without wheezes or crackles, comfortable respiratory pattern only limited by some abdominal pain. Heart: Normal S1-S2, regular rate and rhythm, mild tachycardia at 100, no JVD. Abdomen: Moderately distended, exquisitely tender on the right side, bowel sounds are quiet, he does have peritoneal irritation on the right side. Extremities: Warm, well-perfused. Neuro: He is alert, conversant, oriented 3 and appropriate. He moves 4 limbs with purpose and to command. Caprini VTE Risk Assessment Caprini VTE Risk Assessment: Moderate/High Risk (score >= 2) Caprini Risk Assessment Model: Point Value = 1 Point Value = 2 Point Value = 3 Point Value = 5 Age 41-60 Minor surgery BMI > 25 kg/m2 Swollen legs Varicose veins or History of unexplained or recurrent spontaneous Oral contraceptives or hormone replacement Sepsis (< 1 month) Serious lung disease, including pneumonia (< 1 month) Abnormal pulmonary function Acute myocardial infarction Congestive heart failure (< 1 month) History of inflammatory bowel disease Medical patient at bed rest Age 61-74 Arthroscopic surgery Major open surgery (> 45 min) Laparoscopic surgery (> 45 min) Malignancy Confined to bed (> 72 hours) Immobilizing plaster cast Central venous access Age >= 75 History of VTE Family history of VTE Factor V Leiden Prothrombin [id number] Lupus anticoagulant Anticardiolipin antibodies Elevated serum homocysteine Heparin-induced thrombocytopenia Other congenital or acquired thrombophilia Stroke (< 1 month) Elective arthroplasty Hip, pelvis, or leg fracture Acute spinal cord injury (< 1 month) Prophylaxis Regimen: Total Risk Factor Score Risk Level Prophylaxis Regimen 0-1 Low Early ambulation 2 Moderate Order ONE of the following: *Sequential Compression Device (SCD) *Heparin 5000 units SQ BID 3-4 Higher Order ONE of the following medications: *Heparin 5000 units SQ TID *Enoxaparin/Lovenox 40 mg SQ daily (WT < 150 kg, CrCl > 30 mL/min) *Enoxaparin/Lovenox 30 mg SQ daily (WT < 150 kg, CrCl > 10-29 mL/min) *Enoxaparin/Lovenox 30 mg SQ BID (WT < 150 kg, CrCl > 30 mL/min) AND/OR *Sequential Compression Device (SCD) 5 or more Highest Order ONE of the following medications: *Heparin 5000 units SQ TID (Preferred with Epidurals) *Enoxaparin/Lovenox 40 mg SQ daily (WT < 150 kg, CrCl > 30 mL/min) *Enoxaparin/Lovenox 30 mg SQ daily (WT < 150 kg, CrCl > 10-29 mL/min) *Enoxaparin/Lovenox 30 mg SQ BID (WT < 150 kg, CrCl > 30 mL/min) AND *Sequential Compression Device (SCD) Assessment and Plan - Problem List (1) Severe sepsis with acute organ dysfunction Code(s): A41.9 - Sepsis, unspecified organism; R65.20 - Severe sepsis without septic shock Status: Acute (2) Cholecystitis, acute with cholelithiasis Code(s): K80.00 - Calculus of gallbladder with acute cholecystitis without obstruction Status: Acute (3) KENNY (acute kidney injury) Code(s): N17.9 - Acute kidney failure, unspecified Status: Acute (4) Paroxysmal SVT (supraventricular tachycardia) Code(s): I47.1 - Supraventricular tachycardia Status: Acute - Assessment and Plan Plan: Plan: 1. Aggressive hydration with isotonic crystalloid. 2. Produce urine greater than 40 cc/h status post angiography contrast. 3. Pipracil and tazobactam 4.5 g every 6 hours intravenous 4. Loaded with 1 dose of vancomycin. 5. Bronchodilators. 6. Scheduled Lopressor 25 mg p.o. twice daily 7. Lopressor 5 mg IV as needed supraventricular tachycardia. 8. Pepcid for GI ulcer prophylaxis. 9. SCDs for DVT prophylaxis. 10. Hold chemical DVT prophylaxis until after surgery. 11. Continue statin therapy. 12. Hold XIMENA inhibitor. 13. Schedule urgent laparotomy. Overall impression: This elderly gentleman is clearly septic from an inflamed gallbladder and surrounding phlegmon. He has lactic acidosis and acute kidney injury which is responding to aggressive fluid resuscitation. He has been loaded with appropriate antibiotic therapy and his supraventricular tachycardia has responded to beta-brown therapy. Requires urgent cholecystectomy. He is medically clear for surgery, acknowledging that his risk is increased due to sepsis, lactic acidosis, recent paroxysmal supraventricular tachycardia, and acute kidney injury. Critical care 60 minutes aside from procedures. Code Status: Full Discussed Condition With: Dr. James Lance, bedside nurse, family. (2) Cholecystitis, acute with cholelithiasis Qualifiers: Cholelithiasis location: gallbladder Biliary obstruction: without biliary obstruction Qualified Code(s): K80.00 - Calculus of gallbladder with acute cholecystitis without obstruction
[2017-10-29] MEDS ORDERED: Sod Chloride 0.9% Inj 2,000 ML IV.SIG ONE (10:00)
[2017-10-29] MEDS: Metoprolol Inj 5 MG/5 ML Vial IV.PUSH PRN (10:27)
[2017-10-29] MEDS: Morphine Inj 4 MG/ML Vial IV.PUSH PRN ×2 (10:30→14:51)
[2017-10-29] MEDS: Metoprolol Tartrate 25 MG Tablet PO SCH ×2 (10:43→21:38)
--- NOTE | 2017-10-29 12:24 | MB ---
cc: James Lance MD DATE: 10/29/2017 REASON FOR CONSULTATION: Acute cholecystitis with sepsis. HISTORY OF PRESENT ILLNESS: Mr. Lei is a pleasant 72-year-old gentleman who presented to [facility] early this morning complaining of abdominal pain. He reports the pain has been going on for about 1 week. The pain intensified and he drove himself to the [place] ER. In the [place] ER, he was found to be in septic shock with supraventricular tachycardia and some hypotension. The patient was aggressively resuscitated. The patient underwent a CT thorax to evaluate for dissecting aneurysm and he was found to have acute cholecystitis. Specifically, he was found to have a markedly thickened gallbladder with edema and pericholecystic fluid and gallstones. Stat surgical consultation was requested. The patient was immediately transferred to the [facility] surgical intensive care unit, where I greeted him and saw him on arrival. The patient reports severe epigastric and right upper quadrant abdominal pain. He had nausea and vomiting yesterday, but none today. He denies any fever or chills. He denies previous episodes of abdominal pain. The patient was also seen and evaluated immediately by Dr. Darryn Johnson. PAST MEDICAL HISTORY: Includes reflux, hypertension, chronic neck and back pain, glaucoma and arthritis. PAST SURGICAL HISTORY: Reports multiple spinal surgeries including the low back and cervical regions. He has had bilateral inguinal hernia repairs. He has had a left knee arthroscopy. MEDICATIONS: Well documented in the EMR. Please see the EMR for the details. ALLERGIES: HE HAS NO KNOWN DRUG ALLERGIES. SOCIAL HISTORY: He does not smoke and rarely drinks alcohol. He lives alone down in [place]. He has family in [place]. REVIEW OF SYSTEMS: Please see HPI. PHYSICAL EXAMINATION: VITAL SIGNS: Temperature in [place] was 100.1 with a pulse of 123. His blood pressure was 110/70. He has been resuscitated. His current vital signs have been corrected and he now has a pulse in about the 110 range with a blood pressure of 120/70. His respiratory rate is 18 and his O2 saturation is 100% on 2 liters nasal cannula. GENERAL: This is a pleasant elderly gentleman lying in the ICU. HEENT: Sclerae are white. Oropharynx is clear and moist. NECK: Supple. No masses. LUNGS: Clear to auscultation bilaterally. HEART: S1, S2. No murmur. ABDOMEN: Soft, tender in the epigastric and right upper quadrant with a positive Rankin's sign. No abdominal scars. No obvious hernias. Active bowel sounds. EXTREMITIES: Free range of motion x4. NEUROLOGIC: He is alert and oriented x3. LABORATORY DATA: Electrolytes noted for low sodium 133, low chloride at 95, creatinine elevated at 1.8, glucose 184, bilirubin 1.2. ALT, AST and alkaline phosphatase are all within normal limits. Lipase 103, albumin low at 3.3. Lactic acid markedly elevated at 5.9. Followup lactic acid is 2.4. IMAGING: The patient had a CT thorax done down in [place] that shows a distended, thickened gallbladder with edema and pericholecystic fluid, all concerning for acute cholecystitis. IMPRESSION: Acute cholecystitis with sepsis. PLAN: The patient will be aggressively resuscitated by Dr. Johnson and the ICU staff. After Dr. Johnson completes his evaluation, we can determine if he is cleared for surgical intervention. If he is not cleared for surgical intervention, he will need a percutaneous cholecystostomy tube. Dr. Johnson's initial impression is the patient can likely go to the operating room in the near future. Operating room staff was notified about the patient at 0800 hours this morning when they called me with the stat consult. They state they will try to work him in. It should be noted he arrived at [facility] shortly before [address] Johnson and I both saw him on arrival as he was coming in on the stretcher. MD KOBE Cardona/issac/corina , 11:23 AM , 11:34 AM
[2017-10-29] MEDS: Piperacil/Tazo 4.5 GM Premix 4.5 GM/100 ML BAG IV.SIG SCH ×2 (14:52→21:37)
[2017-10-29] MEDS ORDERED: Naloxone Inj 0.4 MG/ML Vial IV.PUSH PRN (16:36)
[2017-10-29] MEDS ORDERED: Bupivacaine/Epinephrine PF Inj 0.25% 10 ML Vial ONE (16:48)
[2017-10-29] MEDS ORDERED: Albumin Human 5% Inj 250 ML IV.SIG ONE (17:59)
[2017-10-29] MEDS ORDERED: Sugammadex Inj 200 MG/2 ML Vial IV.PUSH ONE (19:14)
[2017-10-29] MEDS ORDERED: *morphine SULFATE 4 MG/ML PERIprocedure ONLY ONE (20:33)
[2017-10-29] MEDS ORDERED: fentaNYL Citrate Inj 100 MCG/2 ML Ampul ONE (20:35)
[2017-10-29] MEDS ORDERED: Vancomycin Consult Pharmacy OTHER PRN (20:48)
[2017-10-29] MEDS ORDERED: Vancomycin Inj 1 GM/200 ML PIGGYBACK IV.SIG ONE (21:00)
--- NOTE | 2017-10-29 21:35 | MP ---
cc: James Lance MD DATE OF OPERATION: 10/29/2017 PREOPERATIVE DIAGNOSIS: Acute cholecystitis with sepsis. POSTOPERATIVE DIAGNOSES: 1. Acute cholecystitis with sepsis. 2. Gangrenous perforated cholecystitis with diffuse peritonitis. PROCEDURE PERFORMED: 1. Laparoscopic cholecystectomy. 2. Laparoscopic irrigation and drain placement of abdominal cavity. SURGEON: James Lance MD ANESTHESIA: General endotracheal. COMPLICATIONS: None. ESTIMATED BLOOD LOSS: About 500 mL. INTRAVENOUS FLUIDS: 3 liters lactated Ringer's. INDICATIONS FOR PROCEDURE: Mr. Lei is a pleasant 72-year-old gentleman who presented to the [facility] this morning with septic cholecystitis. The patient had SVT, hypotension and oliguria with some renal insufficiency. He was brought to [facility] immediately where he was aggressively resuscitated and seen by myself and Dr. Johnson of critical care. The patient was advised to undergo immediate surgical intervention due to his sepsis. The operating room was notified at 0830 this morning and the surgical case started, I believe, around 6 p.m. INTRAOPERATIVE FINDINGS: The patient had perforated cholecystitis with diffuse peritonitis. There were multiple loculated fluid collections with gross purulent material and fibrinous exudate. There was gross bile and pus in the right upper quadrant. The transverse colon and omentum were densely adherent to the gallbladder and had to be carefully taken down with blunt and hydrodissection. The gallbladder was noted to have multiple large stones. We had to take the gallbladder down in a retrograde fashion in order to safely identify the gallbladder neck. We were able to identify the cystic artery, but could not clearly identify the cystic duct from the inferior approach. We therefore had to dissect the gallbladder at the neck and follow the proximal portion of the gallbladder down to the cystic duct. Once we clearly identified this, we were able to ligate it. DETAILS OF PROCEDURE: The patient was identified, brought to the operating room and placed supine on the operating table. After adequate general endotracheal anesthesia was achieved, the abdomen was prepped and draped in a standard surgical fashion. The supraumbilical space was anesthetized with 0.25% Marcaine. A supraumbilical incision was made. Dissection was carried down through the subcutaneous tissue to the midline fascia. The midline fascia was then incised sharply. A finger was then placed in the peritoneal cavity without difficulty. Bluntly, a trocar was inserted and the abdomen was insufflated to 15 mmHg using CO2 gas. Next, two 5 mm trocars were placed in the right upper quadrant after anesthetizing the skin and subcutaneous tissue with 0.25% Marcaine. Both trocars were placed under direct vision. Initial inspection of the abdominal cavity revealed diffuse peritonitis. There was a filmy purulent exudate on the small bowel and on the peritoneum. In the right upper quadrant, there was gross pus and bile, likely indicating the gallbladder had perforated. We therefore placed a third port in the right upper quadrant to assist with visualization. The liver was clearly identified and the liver edge was carefully followed until the gallbladder was seen. The gallbladder was completely encased in omentum. Using blunt dissection, the omentum and transverse colon were dissected off of the inferior border of the gallbladder. This was quite tedious and took an extended period of time. Once we were able to do this, we were able to retract the gallbladder cephalad. The gallbladder was then carefully followed down. The inflammatory exudate plane was carefully dissected using blunt and hydrodissection, getting down to the neck of the gallbladder. We could clearly see the neck of the gallbladder, but we could not clearly identify the cystic duct. We could see what appeared to be the common duct a little more medially, but there was a large gallbladder neck going right toward the common duct and we could not dissect out a cystic duct that was small enough to place clips. We were able to clearly see the cystic artery. I therefore elected to go ahead and ligate the cystic artery. Once we did this, the gallbladder was then taken down in a retrograde dome-down technique. Once we got down to the gallbladder neck, I elected to go ahead and transect the gallbladder so that we could follow the gallbladder down to the cystic duct stump. The gallbladder was then transected at the neck. An EndoCatch bag was placed under the gallbladder while it was transected and the distal gallbladder and gallstones were then placed into the EndoCatch bag. No gallstones were spilled. The gallstones and gallbladder were then removed through the supraumbilical port. The gallbladder was placed on the back table for inspection. Now, attention was redirected to the gallbladder neck remnant. We were able to clearly identify it 360 degrees. We then followed it down and we could see a small amount of bile coming from the cystic duct at the neck of the gallbladder. Again, we dissected this circumferentially so we could see all the way down. There were no posterior structures and the common bile duct was clearly seen medially. Once we got down to the neck of the gallbladder where the cystic duct was entering and we could get around it 360 degrees, we placed two 2-0 PDS Endoloops around the neck of the gallbladder at the cystic duct junction. When we did this, the bile leak stopped completely. Several minutes were allowed to pass and the abdominal cavity was irrigated out. The area was carefully inspected and no bile leak was noted. We then went ahead and transected the proximal gallbladder just above the Endoloops. It was then brought out through the supraumbilical port and sent with the specimen. Once we did this, we carefully inspected the liver bed. All bleeding points were controlled with electrocautery Bovie. The cystic artery stump was seen and intact. The clips were in place and no bleeding was noted. The cystic duct stump was carefully inspected and there was no evidence of leakage of bile and the Endoloops were in place and tested. The abdominal cavity was then rinsed out with 3 liters of warm saline solution until the effluent was noted to be clear. We then inspected the cystic duct stump again and there was no evidence of leakage of bile. The liver bed was carefully inspected and there was no active bleeding. We then placed a 10 [place] Allen-Cano drain in the abdominal cavity and placed it in the liver bed and adjacent to the cystic duct stump. The drain was secured with a 3-0 nylon. The bowel was inspected. The patient was noted to have a moderate ileus with small bowel dilatation. Again, all the purulent fluid was rinsed out of all 4 quadrants of the abdominal cavity. Omentum was then placed in the liver bed underneath the drain. All ports were removed under direct vision. The midline fascia was repaired with 0 Vicryl [id number] x2 because we had to enlarge the fascial incision to get the large gallbladder out. Subcutaneous tissue was copiously irrigated and closed with 4-0 Vicryl. Please note, this surgical procedure took in excess of 2 hours. It required opening of additional instrumentation including 2 suction irrigators because the first from clogged with blood, bile and gallstones. We had to place an additional trocar. The dissection was quite tedious due to the acute inflammatory nature and the perforated gallbladder causing the peritonitis. We had to rinse the abdominal cavity out with 3 liters of warm saline solution. The patient remained hemodynamically stable throughout the surgical procedure. Estimated blood loss was approximately 500 mL, mainly from the liver bed dissection due to the acute inflammatory nature. MD KOBE Cardona/radames , 08:17 PM , 08:30 PM
--- NOTE | 2017-10-29 21:38 | ECG ---
Date Performed: 10/29/2017 Time Performed: 05:48:51 PTAGE: 72 years EKG: SUPRAVENTRICULAR TACHYCARDIA ABNORMAL RHYTHM ECG INTERPRETATION BASED ON A DEFAULT AGE OF 4 0 YEARS PREVIOUS TRACING : 10/17/2017 09.35 Compared to previous tracing, now in SVT DOCTOR: Lv Dorado Interpretating Date/Time 10/29/2017 21:36:48
[2017-10-29] MEDS: Famotidine PF Inj 20 MG/2 ML Vial IV.PUSH SCH (21:39)
[2017-10-29] MEDS: Morphine Inj 30 MG/30 ML PCA.VIAL PCA PRN (22:11)
[2017-10-29] MEDS: Vancomycin Inj 1,500 MG in Sodium Chlor 0.9% Inj 500 ML IV.SIG SCH (23:53)
[2017-10-30] MEDS: Piperacil/Tazo 4.5 GM Premix 4.5 GM/100 ML BAG IV.SIG SCH ×4 (02:40→19:42)
[2017-10-30] MEDS ORDERED: Chlorhexidine Gluconate 2% 1 Pack (2 Cloths) TOPICAL PRN (04:00)
[2017-10-30] MEDS: Chlorhexidine Gluconate 2% 1 Pack (2 Cloths) TOPICAL SCH (04:02)
[2017-10-30 04:18] LABS: Hematocrit 30.4 % (39.0-51.0); Mean Corpuscular HGB Conc 32.7 % (32.0-36.0); Mean Corpuscular Hemoglobin 30.1 pg (27.0-34.0); Mean Corpuscular Volume 91.9 fL (80.0-100.0); Mean Platelet Volume 8.1 fL (7.0-11.0); Platelet Count 283 th/mm3 (150-450); Red Blood Count 3.31 mil/mm3 (4.50-5.90); Red Cell Distribution Width 15.8 % (11.6-17.2); White Blood Count 13.2 th/mm3 (4.0-11.0)
[2017-10-30 04:45] LABS: Calcium 7.2 mg/dL (8.5-10.1); Carbon Dioxide 22.3 meq/L (21.0-32.0); Potassium 4.1 meq/L (3.5-5.1); Total Protein 5.8 g/dL (6.4-8.2)
--- NOTE | 2017-10-30 08:13 | P.PNCC ---
Subjective Subjective Remarks/Hospital Course: - Diagnosis (1) Severe sepsis with acute organ dysfunction (2) Cholecystitis, acute with cholelithiasis (3) KENNY (acute kidney injury) (4) Paroxysmal SVT (supraventricular tachycardia) 10/29: This otherwise healthy 72-year-old active gentleman has had nagging abdominal pain for about a week. It is reached a crescendo pattern where he is buckled over and discomfort and presents to the [facility] emergency department where CAT scan of the abdomen reveals a markedly inflamed gallbladder with surrounding phlegmon/edema. A thoracic aortogram obtained at the same time to rule out dissection is normal. In the emergency department he developed a supraventricular tachycardia in the 160s. This was treated initially with Cardizem at [place] and I have started to load him with beta- brown for prevention of recurrence. Additional immediate problems include acute kidney injury with a creatinine 1.8 related to his inability to keep food down and some vomiting earlier. He denies wheezing or shortness of breath but his CAT scan reveals some minor emphysema. The lung parenchyma is generally sound for his age. He has been loaded with antibiotics and hydrated with isotonic crystalloid. Heart rate is now well controlled. He is medically clear for surgery. His low-level sepsis and dehydration obviously increases risk for surgery. 10/30: Gangrenous gallbladder removed laparoscopically last evening. Patient's general status is much improved today. Renal function much better after aggressive hydration and urine output improved. Patient is alert and conversant. 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 Objective Vital Signs / I&O: Vital Signs 10/29/17 08:29 10/29/17 09:30 10/29/17 10:00 Temperature 99.1 F Pulse Rate 118 H 124 H 124 H Respiratory Rate 17 24 Blood Pressure 117/65 152/84 H Pulse Oximetry 94 L 94 L 10/29/17 10:35 10/29/17 12:00 10/29/17 14:00 Temperature 99.1 F Pulse Rate 111 H 112 H Respiratory Rate 16 20 Blood Pressure 110/64 Pulse Oximetry 93 L 10/29/17 16:00 10/29/17 16:01 10/29/17 20:26 Temperature 98.8 F 98.9 F Pulse Rate 112 H 111 H 109 H Respiratory Rate 18 16 Blood Pressure 118/61 134/84 Pulse Oximetry 95 91 L 10/29/17 20:35 10/29/17 20:43 10/29/17 20:59 Temperature Pulse Rate 104 H 100 H Respiratory Rate 16 16 Blood Pressure 131/71 138/81 Pulse Oximetry 96 95 98 10/29/17 22:00 10/29/17 23:20 10/30/17 00:00 Temperature 98.3 F Pulse Rate 90 82 Respiratory Rate 9 L 11 L Blood Pressure 104/71 Pulse Oximetry 94 L 10/30/17 02:00 10/30/17 04:00 10/30/17 06:00 Temperature 97.6 F Pulse Rate 70 74 78 Respiratory Rate 26 H Blood Pressure 92/55 L Pulse Oximetry 98 Intake & Output 10/29/17 10/30/17 10/30/17 18:59 06:59 18:59 Intake Total 3872 / 3872 5937 / 5937 Output Total 525 / 525 955 / 955 Balance 3347 / 3347 4982 / 4982 Weight 88.2 kg 91.9 kg Intake: IV 3872 / 3872 3137 / 3137 LR 1000 mL Inj 1,000 ML @ 125 1000 / 1000 mls/hr IV.CONT .Q[facility]H [facility] Rx#: [id number] NS Inj 1,000 ML @ 125 mls/hr IV 422 / 422 422 / 422 .CONT .Q8H [facility] Rx#:[id number] Zosyn 4.5 GM Premix 4.5 gm In 200 / 200 200 / 200 100 ml @ 200 mls/hr IV.SIG Q6H [facility] Rx#:[id number] NS Inj 1,000 ML @ Wide Open IV. 3000 / 3000 1000 / 1000 SIG BOLUS ONE Rx#:[id number] Vancomycin Inj 1,000 MG In NS 250 / 250 Inj 250 ML @ 250 mls/hr IV.SIG ONCE ONE Rx#:[id number] Vancomycin Inj 1,500 MG In NS 515 / 515 Inj 500 ML @ 250 mls/hr IV.SIG DAILY@0000 [facility] Rx#:[id number] Oral 0 / 0 Anesthesia Amount 2800 / 2800 Output: Estimated Blood Loss 500 / 500 Urine Amount (Catheter) 525 / 525 375 / 375 Indwelling Urethral Catheter 525 / 525 375 / 375 Wound Drainage 80 / 80 Right Abdomen 80 / 80 Other: # Bowel Movements 0 0 Weight On Admission 88.2 kg Result Diagrams: 10/30/17 03:57 10/30/17 03:57 Objective Remarks: General: Alert conversant man. Head: Atraumatic, normal Neck: Supple airway widely patent no obstructive noises. Lungs: Clear bilaterally without wheezes or crackles, comfortable respiratory pattern. Heart: Normal S1-S2, regular rate and rhythm, mild tachycardia at 92, no JVD. Abdomen: Minimal discomfort to palpation right side. Bowel sounds few but present. No peritoneal irritation. Extremities: Warm, well-perfused. Neuro: He is alert, conversant, oriented 3 and appropriate. He moves 4 limbs with purpose and to command. PERRLA. Procedures: Laparoscopic cholecystectomy October 29, 2017 Assessment and Plan - Problem List (1) Severe sepsis with acute organ dysfunction Code(s): A41.9 - Sepsis, unspecified organism; R65.20 - Severe sepsis without septic shock Status: Acute (2) Gangrenous cholecystitis Code(s): K81.0 - Acute cholecystitis Status: Acute (3) KENNY (acute kidney injury) Code(s): N17.9 - Acute kidney failure, unspecified Status: Acute (4) Paroxysmal SVT (supraventricular tachycardia) Code(s): I47.1 - Supraventricular tachycardia Status: Acute (5) Lactic acidosis Code(s): E87.2 - Acidosis Status: Acute - Assessment and Plan Plan: Plan: 1. Maintenance hydration with isotonic crystalloid. 2. Produce urine greater than 40 cc/h status post angiography contrast. 3. Pipracil/tazobactam 4.5 g every 6 hours intravenous 4. Loaded with 1 dose of vancomycin. 5. Bronchodilators. 6. Lopressor 25 mg p.o. twice daily 7. Lopressor 5 mg IV as needed supraventricular tachycardia. 8. Pepcid for GI ulcer prophylaxis. 9. SCDs for DVT prophylaxis. 10. Start chemical DVT prophylaxis until after surgery. 11. Continue statin therapy. 12. Hold XIMENA inhibitor. 13. Incentive spirometry Overall impression: This elderly gentleman presented clearly septic from an gangrenous gallbladder and surrounding phlegmon. He had lactic acidosis and acute kidney injury which responded to aggressive fluid resuscitation and broad antibiotic coverage. His supraventricular tachycardia has responded to beta- brown therapy. Following removal of his gangrenous gallbladder on October 29 his renal function is much improved and he remains in normal sinus rhythm. Code Status: Full code
[2017-10-30] MEDS: Sod Chloride 0.9% Inj 1,000 ML IV.CONT SCH ×3 (09:37→22:10)
[2017-10-30] MEDS: Famotidine PF Inj 20 MG/2 ML Vial IV.PUSH SCH ×2 (09:38→20:22)
[2017-10-30] MEDS: Metoprolol Tartrate 25 MG Tablet PO SCH ×2 (09:38→20:23)
--- NOTE | 2017-10-30 10:49 | P.PNGS ---
Subjective Patient reports: no new complaints, feels better, pain is less (tenderness to palpation over abdomen), no flatus (burping often), no bowel movement Physical Exam Vital signs: Vital Signs 10/29/17 12:00 10/29/17 14:00 10/29/17 16:00 Temperature 99.1 F 98.8 F Pulse Rate 111 H 112 H 112 H Respiratory Rate 20 18 Blood Pressure 110/64 118/61 Pulse Oximetry 93 L 95 10/29/17 16:01 10/29/17 20:26 10/29/17 20:35 Temperature 98.9 F Pulse Rate 111 H 109 H 104 H Respiratory Rate 16 16 Blood Pressure 134/84 131/71 Pulse Oximetry 91 L 96 10/29/17 20:43 10/29/17 20:59 10/29/17 22:00 Temperature Pulse Rate 100 H 90 Respiratory Rate 16 Blood Pressure 138/81 Pulse Oximetry 95 98 10/29/17 23:20 10/30/17 00:00 10/30/17 02:00 Temperature 98.3 F Pulse Rate 82 70 Respiratory Rate 9 L 11 L Blood Pressure 104/71 Pulse Oximetry 94 L 10/30/17 04:00 10/30/17 06:00 10/30/17 08:50 Temperature 97.6 F Pulse Rate 74 78 Respiratory Rate 26 H Blood Pressure 92/55 L Pulse Oximetry 98 100 Intake & Output 10/29/17 10/30/17 10/30/17 18:59 06:59 18:59 Intake Total 3872 / 3872 5937 / 5937 1000 / 1000 Output Total 525 / 525 955 / 955 Balance 3347 / 3347 4982 / 4982 1000 / 1000 Weight 88.2 kg 91.9 kg Intake: IV 3872 / 3872 3137 / 3137 1000 / 1000 LR 1000 mL Inj 1,000 ML @ 125 1000 / 1000 mls/hr IV.CONT .Q8H [facility] Rx#: [id number] NS Inj 1,000 ML @ 125 mls/hr IV 422 / 422 422 / 422 1000 / 1000 .CONT .Q8H [facility] Rx#:[id number] Zosyn 4.5 GM Premix 4.5 gm In 200 / 200 200 / 200 100 ml @ 200 mls/hr IV.SIG Q6H [facility] Rx#:[id number] NS Inj 1,000 ML @ Wide Open IV. 3000 / 3000 1000 / 1000 SIG BOLUS ONE Rx#:[id number] Vancomycin Inj 1,000 MG In NS 250 / 250 Inj 250 ML @ 250 mls/hr IV.SIG ONCE ONE Rx#:[id number] Vancomycin Inj 1,500 MG In NS 515 / 515 Inj 500 ML @ 250 mls/hr IV.SIG DAILY@0000 [facility] Rx#:[id number] Oral 0 / 0 Anesthesia Amount 2800 / 2800 Output: Estimated Blood Loss 500 / 500 Urine Amount (Catheter) 525 / 525 375 / 375 Indwelling Urethral Catheter 525 / 525 375 / 375 Wound Drainage 80 / 80 Right Abdomen 80 / 80 Other: # Bowel Movements 0 0 Weight On Admission 88.2 kg - Constitutional no acute distress - Routine Abdominal Exam Present: tenderness, distended, surgical scars (no sign of infection), drain ( serosanguineous fluid, no bile) - Urinary Catheter Management Indwelling Urethral Catheter Cath placed during this visit: yes Urethral indwelling: Yes Reason for continuing: Hourly intake/output Insertion date: 10/29/17 Insertion time: 07:17 Assessment and Plan - Assessment (1) Cholecystitis, acute with cholelithiasis Code(s): K80.00 - Calculus of gallbladder with acute cholecystitis without obstruction Status: Acute (2) Sepsis Code(s): A41.9 - Sepsis, unspecified organism Status: Acute (3) SVT (supraventricular tachycardia) Code(s): I47.1 - Supraventricular tachycardia Status: Acute (4) KENNY (acute kidney injury) Code(s): N17.9 - Acute kidney failure, unspecified Status: Acute - Plan Continue to monitor in ICU closely. Will keep on clear liquids for now due to expected post operative ileus secondary to peritonitis. Leave Montoya in to monitor I&Os. Likely DC tomorrow. leave drain in for now. Follow up labs in AM. (1) Cholecystitis, acute with cholelithiasis Qualifiers: Cholelithiasis location: gallbladder Biliary obstruction: without biliary obstruction Qualified Code(s): K80.00 - Calculus of gallbladder with acute cholecystitis without obstruction (2) Sepsis Qualifiers: Sepsis type: sepsis due to unspecified organism Qualified Code(s): A41.9 - Sepsis, unspecified organism
[2017-10-31] MEDS: Metoprolol Inj 5 MG/5 ML Vial IV.PUSH PRN (00:26)
[2017-10-31] MEDS ORDERED: Metoprolol Inj 5 MG/5 ML Vial IV.PUSH ONE (00:35)
[2017-10-31] MEDS: Sod Chloride 0.9% Inj 1,000 ML IV.CONT SCH ×3 (00:35→16:18)
[2017-10-31] MEDS: Vancomycin Inj 1,500 MG in Sodium Chlor 0.9% Inj 500 ML IV.SIG SCH (00:38)
[2017-10-31] MEDS ORDERED: Esmolol Bolus Inj 100 MG/10 ML Vial IV.PUSH ONE (01:49)
[2017-10-31] MEDS: Esmolol 2,500 mg/250 mL Premix 2,500 MG/250 ML BAG IV.CONT PRN ×3 (02:52→13:15)
[2017-10-31] MEDS: Piperacil/Tazo 4.5 GM Premix 4.5 GM/100 ML BAG IV.SIG SCH ×4 (02:52→19:38)
[2017-10-31] MEDS: Chlorhexidine Gluconate 2% 1 Pack (2 Cloths) TOPICAL SCH (04:41)
[2017-10-31] MEDS: Morphine Inj 30 MG/30 ML PCA.VIAL PCA PRN (04:53)
[2017-10-31 05:51] LABS: Hematocrit 33.2 % (39.0-51.0); Hemoglobin 11.1 gm/dL (13.0-17.0); Mean Corpuscular HGB Conc 33.5 % (32.0-36.0); Mean Corpuscular Hemoglobin 29.8 pg (27.0-34.0); Mean Corpuscular Volume 88.9 fL (80.0-100.0); Mean Platelet Volume 8.4 fL (7.0-11.0); Platelet Count 356 th/mm3 (150-450); Red Blood Count 3.73 mil/mm3 (4.50-5.90); Red Cell Distribution Width 15.7 % (11.6-17.2); White Blood Count 22.1 th/mm3 (4.0-11.0)
[2017-10-31 06:14] LABS: Alanine Aminotransferase 41 U/L (12-78); Albumin 1.8 g/dL (3.4-5.0); Anion Gap 9 meq/L (5-15); Aspartate Aminotransferase 27 U/L (15-37); Blood Urea Nitrogen 20 mg/dL (7-18); Calcium 7.6 mg/dL (8.5-10.1); Carbon Dioxide 21.7 meq/L (21.0-32.0); Chloride 111 meq/L (98-107); Glomerular Filtration Rate 68 mL/min (>89); Glucose,Random 122 mg/dL (74-106); Potassium 3.5 meq/L (3.5-5.1); Sodium 142 meq/L (136-145)
[2017-10-31 06:16] LABS: Alkaline Phosphatase 55 U/L (45-117); Total Protein 5.8 g/dL (6.4-8.2)
--- NOTE | 2017-10-31 07:28 | P.PNCC ---
Subjective Subjective Remarks/Hospital Course: - Diagnosis (1) Severe sepsis with acute organ dysfunction (2) Cholecystitis, acute with cholelithiasis (3) KENNY (acute kidney injury) (4) Paroxysmal SVT (supraventricular tachycardia) 10/29: This otherwise healthy 72-year-old active gentleman has had nagging abdominal pain for about a week. It is reached a crescendo pattern where he is buckled over and discomfort and presents to the [place] emergency department where CAT scan of the abdomen reveals a markedly inflamed gallbladder with surrounding phlegmon/edema. A thoracic aortogram obtained at the same time to rule out dissection is normal. In the emergency department he developed a supraventricular tachycardia in the 160s. This was treated initially with Cardizem at [place] and I have started to load him with beta- brown for prevention of recurrence. Additional immediate problems include acute kidney injury with a creatinine 1.8 related to his inability to keep food down and some vomiting earlier. He denies wheezing or shortness of breath but his CAT scan reveals some minor emphysema. The lung parenchyma is generally sound for his age. He has been loaded with antibiotics and hydrated with isotonic crystalloid. Heart rate is now well controlled. He is medically clear for surgery. His low-level sepsis and dehydration obviously increases risk for surgery. 10/30: Gangrenous gallbladder removed laparoscopically last evening. Patient's general status is much improved today. Renal function much better after aggressive hydration and urine output improved. Patient is alert and conversant. Pain control with TRACK LEADER appears good. 10/31: Patient is developed vomiting and is unable to keep his oral heart medication down. I will discuss possible NG tube placement with the surgery service. He developed atrial fibrillation with rapid ventricular response last evening and required transfer back down to the ICU. Cardizem is on back order so esmolol infusion was used to heart rate. Following discussion with Dr. Valles , it appears to me the safest method to control his heart rate and add amiodarone for rhythm conversion is to replace the esmolol with digoxin now. Objective Vital Signs / I&O: Vital Signs 10/30/17 08:00 10/30/17 08:50 10/30/17 10:00 Temperature 97.9 F Pulse Rate 84 88 Respiratory Rate 19 Blood Pressure 121/57 L Pulse Oximetry 95 100 10/30/17 12:00 10/30/17 14:00 10/30/17 16:00 Temperature 98.7 F 98.6 F Pulse Rate 88 84 88 Respiratory Rate 20 18 Blood Pressure 120/64 128/69 Pulse Oximetry 97 94 L 10/30/17 18:00 10/30/17 20:00 10/30/17 20:36 Temperature 98.7 F Pulse Rate 87 82 Respiratory Rate 23 Blood Pressure 143/73 H Pulse Oximetry 94 L 93 L 10/30/17 22:00 10/31/17 00:00 10/31/17 02:00 Temperature 98.8 F Pulse Rate 96 H 142 H 136 H Respiratory Rate 20 Blood Pressure 160/80 H Pulse Oximetry 94 L 10/31/17 04:00 10/31/17 05:49 Temperature 98.8 F Pulse Rate 120 H Respiratory Rate 24 26 H Blood Pressure 121/87 Pulse Oximetry 93 L Intake & Output 10/30/17 10/31/17 10/31/17 18:59 06:59 18:59 Intake Total 2440 / 2440 715 / 715 Output Total 625 / 625 Balance 1815 / 1815 715 / 715 Intake: IV 2200 / 2200 715 / 715 NS Inj 1,000 ML @ 125 mls/hr IV 1999 / 1999 .CONT .Q8H [facility] Rx#:[id number] Zosyn 4.5 GM Premix 4.5 gm In 200 / 200 200 / 200 100 ml @ 200 mls/hr IV.SIG Q6H [facility] Rx#:[id number] Vancomycin Inj 1,500 MG In NS 515 / 515 Inj 500 ML @ 250 mls/hr IV.SIG DAILY@0000 [facility] Rx#:[id number] Oral 240 / 240 Output: Urine Amount (Catheter) 525 / 525 Indwelling Urethral Catheter 525 / 525 Wound Drainage 100 / 100 Right Abdomen 100 / 100 Other: # Bowel Movements 0 Result Diagrams: 10/31/17 05:31 10/31/17 05:31 Objective Remarks: General: Alert conversant man. Head: Atraumatic, normal Neck: Supple airway widely patent no obstructive noises. Lungs: Clear bilaterally without wheezes or crackles, comfortable respiratory pattern. Heart: Irreg Irreg, rate 150s, no JVD. Abdomen: Minimal discomfort to palpation right side. Bowel sounds few but present. No peritoneal irritation. Extremities: Warm, well-perfused. Neuro: He is alert, conversant, oriented 3 and appropriate. He moves 4 limbs with purpose and to command. SEBASTIÁN. Procedures: Laparoscopic cholecystectomy October 29, 2017 Assessment and Plan - Problem List (1) Severe sepsis with acute organ dysfunction Code(s): A41.9 - Sepsis, unspecified organism; R65.20 - Severe sepsis without septic shock Status: Acute (2) Gangrenous cholecystitis Code(s): K81.0 - Acute cholecystitis Status: Acute (3) KENNY (acute kidney injury) Code(s): N17.9 - Acute kidney failure, unspecified Status: Acute (4) Paroxysmal SVT (supraventricular tachycardia) Code(s): I47.1 - Supraventricular tachycardia Status: Acute (5) Lactic acidosis Code(s): E87.2 - Acidosis Status: Acute - Assessment and Plan Plan: Plan: 1. Maintenance hydration with isotonic crystalloid. 2. Produce urine greater than 40 cc/h status post angiography contrast. 3. Pipracil/tazobactam 4.5 g every 6 hours intravenous 4. Loaded with 1 dose of vancomycin. 5. Bronchodilators. 6. Lopressor 25 mg p.o. twice daily 7. Lopressor 5 mg IV as needed supraventricular tachycardia. 8. Pepcid for GI ulcer prophylaxis. 9. SCDs for DVT prophylaxis. 10. Start chemical DVT prophylaxis. 11. Continue statin therapy. 12. Hold XIMENA inhibitor. 13. Incentive spirometry 14. Replace K. 15. Load with digoxin until rate controlled. 16. Following rate control start amiodarone infusion for conversion. Overall impression: This elderly gentleman presented clearly septic from an gangrenous gallbladder and surrounding phlegmon. He had lactic acidosis and acute kidney injury which responded to aggressive fluid resuscitation and broad antibiotic coverage. His supraventricular tachycardia has responded to beta- brown therapy. Following removal of his gangrenous gallbladder on October 29 his renal function is much improved and he remains in normal sinus rhythm. Last evening he converted back to atrial fibrillation with rapid ventricular response after episodes of vomiting and inability to keep his oral cardiac medications down. He is hemodynamically unstable now and critically ill. Efforts are underway to control his rate and convert his rhythm. Critical care time 45 minutes aside from procedures.
[2017-10-31] MEDS ORDERED: Digoxin Inj 500 MCG/2 ML Ampul IV.PUSH ONE ×3 (07:30→13:00)
[2017-10-31] MEDS: Heparin - SQ 10,000 UNITS/ML Vial SQ SCH ×2 (08:56→16:18)
[2017-10-31] MEDS: Famotidine PF Inj 20 MG/2 ML Vial IV.PUSH SCH ×2 (08:56→21:09)
[2017-10-31] MEDS: Mag Sulf 1 gm/100 ml Premix 100 ML IV.SIG SCH ×2 (09:29→11:00)
[2017-10-31] MEDS: Metoprolol Tartrate 25 MG Tablet PO SCH ×3 (09:29→21:10)
[2017-10-31] MEDS ORDERED: Potassium Chloride Inj 20 MEQ/10 ML Vial IV.SIG SCH (10:00)
[2017-10-31] MEDS: Potassium Chlor 20 mEq Premix 20 MEQ/100 ML PIGGYBACK IV.SIG SCH ×2 (13:00→21:25)
[2017-10-31] MEDS ORDERED: Phenol 1.4% 180 ML Spray Bottle OROPHARYNG PRN (14:24)
--- NOTE | 2017-10-31 14:24 | P.PNGS ---
Subjective Interval history: Resting in bed; NGT placed due to vomiting; went into atrial fib but now in NSR Physical Exam Vital signs: Vital Signs 10/30/17 16:00 10/30/17 18:00 10/30/17 20:00 Temperature 98.6 F 98.7 F Pulse Rate 88 87 82 Respiratory Rate 18 23 Blood Pressure 128/69 143/73 H Pulse Oximetry 94 L 94 L 10/30/17 20:36 10/30/17 22:00 10/31/17 00:00 Temperature 98.8 F Pulse Rate 96 H 142 H Respiratory Rate 20 Blood Pressure 160/80 H Pulse Oximetry 93 L 94 L 10/31/17 02:00 10/31/17 04:00 10/31/17 05:49 Temperature 98.8 F Pulse Rate 136 H 120 H Respiratory Rate 24 26 H Blood Pressure 121/87 Pulse Oximetry 93 L 10/31/17 06:00 10/31/17 08:00 10/31/17 10:00 Temperature 97.9 F Pulse Rate 110 H 107 H 104 H Respiratory Rate 24 Blood Pressure 104/71 Pulse Oximetry 93 L 10/31/17 12:00 Temperature Pulse Rate 86 Respiratory Rate Blood Pressure Pulse Oximetry Intake & Output 10/30/17 10/31/17 10/31/17 18:59 06:59 18:59 Intake Total 2440 / 2440 955 / 955 1700 / 1700 Output Total 625 / 625 630 / 630 Balance 1815 / 1815 325 / 325 1700 / 1700 Weight 98.4 kg Intake: IV 2200 / 2200 715 / 715 1700 / 1700 Brevibloc 2,500 mg/NS 250 mL 500 / 500 Premix 2,500 mg In 250 ml @ 50 MCG/KG/MIN 27.57 mls/hr IV.CONT TITRATE PRN Rx#:[id number] NS Inj 1,000 ML @ 125 mls/hr IV 2000 / 2000 1000 / 1000 .CONT .Q8H [facility] Rx#:[id number] Magnesium Sulfate 1 gm/D5W 100 100 / 100 ml Premix 100 ML @ 100 mls/hr IV.SIG Q1H [facility] Rx#:[id number] Zosyn 4.5 GM Premix 4.5 gm In 200 / 200 200 / 200 100 / 100 100 ml @ 200 mls/hr IV.SIG Q6H [facility] Rx#:[id number] Vancomycin Inj 1,500 MG In NS 515 / 515 Inj 500 ML @ 250 mls/hr IV.SIG DAILY@0000 [facility] Rx#:[id number] Oral 240 / 240 240 / 240 Output: Urine Amount (Catheter) 525 / 525 600 / 600 Indwelling Urethral Catheter 525 / 525 600 / 600 Wound Drainage 100 / 100 30 / 30 Right Abdomen 100 / 100 30 / 30 Other: # Bowel Movements 0 # Emeses 7 Narrative: Alert and awake Abd: distended; lap sites c/d/i; SONIA with serous drainage - Urinary Catheter Management Indwelling Urethral Catheter Cath placed during this visit: yes Urethral indwelling: Yes Reason for continuing: Hourly intake/output Insertion date: 10/29/17 Insertion time: 07:17 Assessment and Plan - Assessment (1) Cholecystitis, acute with cholelithiasis Code(s): K80.00 - Calculus of gallbladder with acute cholecystitis without obstruction Status: Acute Plan: 72 year old male POD2 lap bing; sepsis -Now with ileus [facility] -Throat spray PRN for sore throat -IVF -Heart rate control -CHIMNEY BUILDER for pain control (2) Sepsis Code(s): A41.9 - Sepsis, unspecified organism Status: Acute (3) SVT (supraventricular tachycardia) Code(s): I47.1 - Supraventricular tachycardia Status: Acute (4) KENNY (acute kidney injury) Code(s): N17.9 - Acute kidney failure, unspecified Status: Acute (1) Cholecystitis, acute with cholelithiasis Qualifiers: Cholelithiasis location: gallbladder Biliary obstruction: without biliary obstruction Qualified Code(s): K80.00 - Calculus of gallbladder with acute cholecystitis without obstruction (2) Sepsis Qualifiers: Sepsis type: sepsis due to unspecified organism Qualified Code(s): A41.9 - Sepsis, unspecified organism
--- NOTE | 2017-10-31 14:59 | XR ---
EXAM DATE: 10/31/2017 2:18 PM EDT AGE/SEX: 72 years / Male INDICATIONS: Nasogastric tube placement. CLINICAL DATA: This is the patient's initial encounter. Patient reports that signs and symptoms have been present for 3 days and indicates a pain score of 0/10. MEDICAL/SURGICAL HISTORY: Gastroesophageal reflux disease. Hypertension. hiatal hernia, ulcers . inguinal hernia repair, lumbar laminectomy COMPARISON: No prior exams available for comparison. FINDINGS: NG tube is present with tip in the stomach. There is dilatation of loops of small bowel maximum di ameter of 4.9 cm. There is gas and stool throughout the colon. CONCLUSION: NG tube tip in the stomach with distended loops of small bowel possible ileus and follow-up is recomm ended. Electronically signed by: Jacobo Evangelista MD 10/31/2017 2:58 PM EDT
[2017-10-31] MEDS ORDERED: Bisacodyl 10 MG Supp RECTAL ONE (15:00)
[2017-10-31] MEDS ORDERED: Amiodarone Inj 150 MG in Dextrose 5% in Water Inj 97 ML IV.SIG ONE ×2 (15:30)
[2017-11-01] MEDS: Sod Chloride 0.9% Inj 1,000 ML IV.CONT SCH ×3 (00:09→17:02)
[2017-11-01] MEDS: Vancomycin Inj 1,500 MG in Sodium Chlor 0.9% Inj 500 ML IV.SIG SCH (00:41)
[2017-11-01] MEDS: Heparin - SQ 10,000 UNITS/ML Vial SQ SCH ×3 (00:41→16:12)
[2017-11-01] MEDS: Piperacil/Tazo 4.5 GM Premix 4.5 GM/100 ML BAG IV.SIG SCH ×4 (02:55→19:36)
[2017-11-01 05:34] LABS: Hematocrit 30.2 % (39.0-51.0); Hemoglobin 10.1 gm/dL (13.0-17.0); Mean Corpuscular HGB Conc 33.6 % (32.0-36.0); Mean Corpuscular Hemoglobin 29.9 pg (27.0-34.0); Mean Corpuscular Volume 89.1 fL (80.0-100.0); Mean Platelet Volume 8.3 fL (7.0-11.0); Platelet Count 322 th/mm3 (150-450); Red Blood Count 3.39 mil/mm3 (4.50-5.90); Red Cell Distribution Width 15.4 % (11.6-17.2)
[2017-11-01 05:59] LABS: Albumin 1.7 g/dL (3.4-5.0); Anion Gap 9 meq/L (5-15); Aspartate Aminotransferase 14 U/L (15-37); Blood Urea Nitrogen 20 mg/dL (7-18); Calcium 7.7 mg/dL (8.5-10.1); Chloride 110 meq/L (98-107); Glomerular Filtration Rate 73 mL/min (>89); Glucose,Random 121 mg/dL (74-106); Magnesium 2.6 mg/dL (1.5-2.5); Potassium 3.5 meq/L (3.5-5.1); Sodium 143 meq/L (136-145)
[2017-11-01 06:04] LABS: Alanine Aminotransferase 29 U/L (12-78); Alkaline Phosphatase 50 U/L (45-117); Phosphorus 2.3 mg/dL (2.5-4.9); Total Protein 5.7 g/dL (6.4-8.2)
--- NOTE | 2017-11-01 07:28 | P.PNCC ---
Subjective Subjective Remarks/Hospital Course: - Diagnosis (1) Severe sepsis with acute organ dysfunction (2) Cholecystitis, acute with cholelithiasis (3) KENNY (acute kidney injury) (4) Paroxysmal SVT (supraventricular tachycardia) 10/29: This otherwise healthy 72-year-old active gentleman has had nagging abdominal pain for about a week. It is reached a crescendo pattern where he is buckled over and discomfort and presents to the [place] emergency department where CAT scan of the abdomen reveals a markedly inflamed gallbladder with surrounding phlegmon/edema. A thoracic aortogram obtained at the same time to rule out dissection is normal. In the emergency department he developed a supraventricular tachycardia in the 160s. This was treated initially with Cardizem at [place] and I have started to load him with beta- brown for prevention of recurrence. Additional immediate problems include acute kidney injury with a creatinine 1.8 related to his inability to keep food down and some vomiting earlier. He denies wheezing or shortness of breath but his CAT scan reveals some minor emphysema. The lung parenchyma is generally sound for his age. He has been loaded with antibiotics and hydrated with isotonic crystalloid. Heart rate is now well controlled. He is medically clear for surgery. His low-level sepsis and dehydration obviously increases risk for surgery. 10/30: Gangrenous gallbladder removed laparoscopically last evening. Patient's general status is much improved today. Renal function much better after aggressive hydration and urine output improved. Patient is alert and conversant. Pain control with [employer]AD[employer] HAT TRIMMER appears good. 10/31: Patient is developed vomiting and is unable to keep his oral heart medication down. I will discuss possible NG tube placement with the surgery service. He developed atrial fibrillation with rapid ventricular response last evening and required transfer back down to the ICU. Cardizem is on back order so esmolol infusion was used to heart rate. Following discussion with Dr. Valles , it appears to me the safest method to control his heart rate and add amiodarone for rhythm conversion is to replace the esmolol with digoxin now. 11/01: Patient remains in sinus rhythm and is normotensive. Nasogastric output approaching 3 L. Ileus is expected following diffuse peritonitis. He feels much better with the nasogastric tube down. We will follow his electrolytes and fluid balance closely particularly in the context of his supraventricular arrhythmias. Objective Vital Signs / I&O: Vital Signs 10/31/17 08:00 10/31/17 10:00 10/31/17 12:00 Temperature 97.9 F 98.1 F Pulse Rate 107 H 104 H 102 H Respiratory Rate 24 27 H Blood Pressure 104/71 107/82 Pulse Oximetry 93 L 95 10/31/17 14:00 10/31/17 16:00 10/31/17 18:00 Temperature 98.0 F Pulse Rate 80 86 104 H Respiratory Rate 20 Blood Pressure 135/74 Pulse Oximetry 96 10/31/17 19:36 10/31/17 20:00 10/31/17 22:00 Temperature 98.5 F Pulse Rate 100 H 92 H Respiratory Rate 23 Blood Pressure 165/90 H Pulse Oximetry 93 L 94 L 11/01/17 00:00 11/01/17 02:00 11/01/17 04:00 Temperature 98.5 F 98.2 F Pulse Rate 90 84 84 Respiratory Rate 21 17 Blood Pressure 160/85 H 170/81 H Pulse Oximetry 96 100 11/01/17 06:00 Temperature Pulse Rate 85 Respiratory Rate Blood Pressure Pulse Oximetry Intake & Output 10/31/17 11/01/17 11/01/17 18:59 06:59 18:59 Intake Total 3350 / 3350 2055 Output Total 780 / 780 2990 / 2990 Balance 2570 / 2570 -934 / -934 Weight 97.4 kg Intake: IV 3250 / 3250 2055 Cordarone Inj 450 MG In D5W Inj 241 / 241 241 ML @ 1 MG/MIN 33.33 mls/hr IV.CONT TITRATE PRN Rx#: [id number] Brevibloc 2,500 mg/NS 250 mL 650 / 650 Premix 2,500 mg In 250 ml @ 50 MCG/KG/MIN 27.57 mls/hr IV.CONT TITRATE PRN Rx#:[id number] NS Inj 1,000 ML @ 125 mls/hr IV 1999 / 1999 1000 / 1000 .CONT .Q8H [facility] Rx#:[id number] Cordarone Inj 150 MG In D5W Inj 100 / 100 97 ML @ 100 mls/hr IV.SIG ONCE ONE Rx#:[id number] Magnesium Sulfate 1 gm/D5W 100 200 / 200 ml Premix 100 ML @ 100 mls/hr IV.SIG Q1H [facility] Rx#:[id number] Zosyn 4.5 GM Premix 4.5 gm In 200 / 200 200 / 200 100 ml @ 200 mls/hr IV.SIG Q6H [facility] Rx#:[id number] KCl 20 mEq Premix Inj 20 meq In 100 / 100 100 / 100 100 ml @ 50 mls/hr IV.SIG BID [facility] Rx#:[id number] Vancomycin Inj 1,500 MG In NS 515 / 515 Inj 500 ML @ 250 mls/hr IV.SIG DAILY@0000 [facility] Rx#:[id number] Oral 100 / 100 Output: Urine Amount (Catheter) 300 / 300 450 / 450 Indwelling Urethral Catheter 300 / 300 450 / 450 Gastric Drainage 450 / 450 2500 / 2500 Right Nare Nasogastric Tube 450 / 450 2500 / 2500 Wound Drainage 30 / 30 40 / 40 Right Abdomen 30 / 30 40 / 40 Result Diagrams: 11/01/17 05:03 11/01/17 05:03 Objective Remarks: General: Alert conversant man. Uncomfortable. Head: Atraumatic, normal Neck: Supple airway widely patent no obstructive noises. Lungs: Clear bilaterally without wheezes or crackles, comfortable respiratory pattern. Heart: Normal S1-S2, regular rate and rhythm, no JVD. Abdomen: Minimal discomfort to palpation. Bowel sounds few but present. No peritoneal irritation. Mildly distended. Extremities: Warm, well-perfused. Neuro: He is alert, conversant, oriented 3 and appropriate. He moves 4 limbs with purpose and to command. PERRLA. Procedures: Laparoscopic cholecystectomy October 29, 2017 Assessment and Plan - Problem List (1) Severe sepsis with acute organ dysfunction Code(s): A41.9 - Sepsis, unspecified organism; R65.20 - Severe sepsis without septic shock Status: Acute (2) Gangrenous cholecystitis Code(s): K81.0 - Acute cholecystitis Status: Acute (3) Peritonitis Code(s): K65.9 - Peritonitis, unspecified Status: Acute (4) KENNY (acute kidney injury) Code(s): N17.9 - Acute kidney failure, unspecified Status: Acute (5) Paroxysmal SVT (supraventricular tachycardia) Code(s): I47.1 - Supraventricular tachycardia Status: Acute (6) Lactic acidosis Code(s): E87.2 - Acidosis Status: Acute (7) Atrial fibrillation with rapid ventricular response Code(s): I48.91 - Unspecified atrial fibrillation Status: Acute (8) Ileus, postoperative Code(s): K91.89 - Other postprocedural complications and disorders of digestive system; K56.7 - Ileus, unspecified Status: Acute - Assessment and Plan Plan: Plan: 1. Maintenance hydration with isotonic crystalloid. 2. Produce urine greater than 30 cc/h status post angiography contrast. 3. Pipracil/tazobactam 4.5 g every 6 hours intravenous 4. Loaded with 1 dose of vancomycin, maintenance dose. 5. Bronchodilators. 6. Lopressor 25 mg p.o. twice daily 7. Lopressor 5 mg IV as needed supraventricular tachycardia. 8. Pepcid for GI ulcer prophylaxis. 9. SCDs for DVT prophylaxis. 10. Start chemical DVT prophylaxis. 11. Continue statin therapy. 12. Hold XIMENA inhibitor. 13. Incentive spirometry 14. Replace K. 15. Load with digoxin until rate controlled. 16. Following rate control start amiodarone infusion for conversion. Convert to p.o. when can take p.o. 17. Nasogastric tube to low intermittent suction Overall impression: This elderly gentleman presented clearly septic from a gangrenous gallbladder with surrounding phlegmon and generalized peritonitis. He had lactic acidosis and acute kidney injury which responded to aggressive fluid resuscitation and broad antibiotic coverage. His supraventricular tachycardia/paroxysmal atrial fibrillation has responded to beta-brown and amiodarone therapy. Following removal of his gangrenous gallbladder on October 29 his renal function was much improved. 2 days ago he converted back to atrial fibrillation with rapid ventricular response after episodes of vomiting and inability to keep his oral cardiac medications down. He is hemodynamically unstable now and critically ill. Fluid and electrolyte losses related to large gastric output are complicating arrhythmia control. Critical care time 42 minutes aside from procedures.
[2017-11-01] MEDS ORDERED: Potassium Chloride Inj 20 MEQ/10 ML Vial IV.SIG ONE (08:00)
[2017-11-01] MEDS ORDERED: Potassium Chlor 20 mEq Premix 20 MEQ/100 ML PIGGYBACK IV.SIG ONE (08:30)
[2017-11-01] MEDS: Metoprolol Tartrate 25 MG Tablet PO SCH ×2 (09:01→20:22)
[2017-11-01] MEDS: Famotidine PF Inj 20 MG/2 ML Vial IV.PUSH SCH ×2 (09:02→20:22)
[2017-11-01] MEDS: Chlorhexidine Gluconate 2% 1 Pack (2 Cloths) TOPICAL SCH (10:13)
[2017-11-01] MEDS: Potassium Chlor 20 mEq Premix 20 MEQ/100 ML PIGGYBACK IV.SIG PRN (15:28)
--- NOTE | 2017-11-01 17:28 | ECG ---
Date Performed: 10/31/2017 Time Performed: 06:57:48 PTAGE: 72 years EKG: Atrial fibrillation with rapid ventricular response. Possible inferior infarct - age undete rmined Abnormal ECG NO PREVIOUS TRACING DOCTOR: Lizzie Prasad Interpretating Date/Time 11/01/2017 17:26:10
--- NOTE | 2017-11-01 17:30 | ECG ---
Date Performed: 10/31/2017 Time Performed: 00:13:12 PTAGE: 72 years EKG: Atrial fibrillation with rapid ventricular response. Possible inferior infarct - age undete rmined Abnormal ECG PREVIOUS TRACING : 10/29/2017 05.48 DOCTOR: Lizzie Prasad Interpretating Date/Time 11/01/2017 17:27:50
[2017-11-01] MEDS ORDERED: Pharmacy Ordered Lab Info OTHER ONE (23:45)
[2017-11-02 00:51] LABS: Albumin 1.6 g/dL (3.4-5.0); Anion Gap 8 meq/L (5-15); Aspartate Aminotransferase 20 U/L (15-37); Blood Urea Nitrogen 17 mg/dL (7-18); Calcium 7.8 mg/dL (8.5-10.1); Carbon Dioxide 24.5 meq/L (21.0-32.0); Chloride 111 meq/L (98-107); Glomerular Filtration Rate Greater Than 89 mL/min (>89); Glucose,Random 93 mg/dL (74-106); Potassium 3.4 meq/L (3.5-5.1); Sodium 143 meq/L (136-145)
[2017-11-02 00:52] LABS: Alanine Aminotransferase 24 U/L (12-78)
[2017-11-02 00:54] LABS: Alkaline Phosphatase 57 U/L (45-117); Total Protein 5.7 g/dL (6.4-8.2)
[2017-11-02] MEDS: Vancomycin Inj 1,500 MG in Sodium Chlor 0.9% Inj 500 ML IV.SIG SCH ×2 (00:58→12:20)
[2017-11-02] MEDS: Sod Chloride 0.9% Inj 1,000 ML IV.CONT SCH ×3 (01:03→17:24)
[2017-11-02] MEDS: Piperacil/Tazo 4.5 GM Premix 4.5 GM/100 ML BAG IV.SIG SCH ×4 (02:55→20:55)
[2017-11-02] MEDS: Chlorhexidine Gluconate 2% 1 Pack (2 Cloths) TOPICAL SCH (04:15)
[2017-11-02 04:25] LABS: Hematocrit 27.6 % (39.0-51.0); Hemoglobin 9.1 gm/dL (13.0-17.0); Mean Corpuscular HGB Conc 32.9 % (32.0-36.0); Mean Corpuscular Hemoglobin 29.4 pg (27.0-34.0); Mean Corpuscular Volume 89.5 fL (80.0-100.0); Mean Platelet Volume 8.4 fL (7.0-11.0); Platelet Count 297 th/mm3 (150-450); Red Blood Count 3.08 mil/mm3 (4.50-5.90); Red Cell Distribution Width 15.9 % (11.6-17.2); White Blood Count 12.8 th/mm3 (4.0-11.0)
--- NOTE | 2017-11-02 07:56 | P.PNCC ---
Subjective Subjective Remarks/Hospital Course: - Diagnosis (1) Severe sepsis with acute organ dysfunction (2) Cholecystitis, acute with cholelithiasis (3) KENNY (acute kidney injury) (4) Paroxysmal SVT (supraventricular tachycardia) 10/29: This otherwise healthy 72-year-old active gentleman has had nagging abdominal pain for about a week. It is reached a crescendo pattern where he is buckled over and discomfort and presents to the [facility] emergency department where CAT scan of the abdomen reveals a markedly inflamed gallbladder with surrounding phlegmon/edema. A thoracic aortogram obtained at the same time to rule out dissection is normal. In the emergency department he developed a supraventricular tachycardia in the 160s. This was treated initially with Cardizem at [facility] and I have started to load him with beta- brown for prevention of recurrence. Additional immediate problems include acute kidney injury with a creatinine 1.8 related to his inability to keep food down and some vomiting earlier. He denies wheezing or shortness of breath but his CAT scan reveals some minor emphysema. The lung parenchyma is generally sound for his age. He has been loaded with antibiotics and hydrated with isotonic crystalloid. Heart rate is now well controlled. He is medically clear for surgery. His low-level sepsis and dehydration obviously increases risk for surgery. 10/30: Gangrenous gallbladder removed laparoscopically last evening. Patient's general status is much improved today. Renal function much better after aggressive hydration and urine output improved. Patient is alert and conversant. Pain control with ER MEDICAL TECHNICIAN appears good. 10/31: Patient is developed vomiting and is unable to keep his oral heart medication down. I will discuss possible NG tube placement with the surgery service. He developed atrial fibrillation with rapid ventricular response last evening and required transfer back down to the ICU. Cardizem is on back order so esmolol infusion was used to heart rate. Following discussion with Dr. Valles , it appears to me the safest method to control his heart rate and add amiodarone for rhythm conversion is to replace the esmolol with digoxin now. 11/01: Patient remains in sinus rhythm and is normotensive. Nasogastric output approaching 3 L. Ileus is expected following diffuse peritonitis. He feels much better with the nasogastric tube down. We will follow his electrolytes and fluid balance closely particularly in the context of his supraventricular arrhythmias. 11/02: Patient remains in sinus rhythm with mild hypertension. Will double beta -brown and add lisinopril daily. Nasogastric tube output remains copious, averaging 1400 per shift. He clearly has an ileus at this point and will just need to ride it out. He is developed a marked cellulitis in his left antecubital fossa related to an IV site. This may be from potassium replacement irritation. I suspect I will have to place a central line in him for better access and probable institution of TPN. Objective Vital Signs / I&O: Vital Signs 11/01/17 08:00 11/01/17 10:00 11/01/17 12:00 Temperature 98.4 F 98.4 F Pulse Rate 80 72 80 Respiratory Rate 16 26 H Blood Pressure 107/80 154/70 H Pulse Oximetry 100 98 11/01/17 14:00 11/01/17 16:00 11/01/17 18:00 Temperature 98.9 F Pulse Rate 80 80 84 Respiratory Rate 17 Blood Pressure 152/70 H Pulse Oximetry 98 11/01/17 20:00 11/01/17 22:00 11/01/17 22:34 Temperature 99.0 F Pulse Rate 84 80 Respiratory Rate 23 Blood Pressure 165/82 H Pulse Oximetry 98 98 11/02/17 00:00 11/02/17 02:00 11/02/17 04:00 Temperature 98.7 F 98.5 F Pulse Rate 80 86 76 Respiratory Rate 25 H 22 Blood Pressure 168/83 H 176/108 H Pulse Oximetry 100 96 11/02/17 06:00 Temperature Pulse Rate 74 Respiratory Rate Blood Pressure Pulse Oximetry Intake & Output 11/01/17 11/02/17 11/02/17 18:59 06:59 18:59 Intake Total 2650 / 2650 1715 / 1715 Output Total 2115 / 2115 920 / 920 Balance 535 / 535 795 / 795 Weight 95.8 kg Intake: IV 2650 / 2650 1715 / 1715 Cordarone Inj 450 MG In D5W Inj 250 / 250 241 ML @ 1 MG/MIN 33.33 mls/hr IV.CONT TITRATE PRN Rx#: [id number] NS Inj 1,000 ML @ 125 mls/hr IV 2000 / 2000 1000 / 1000 .CONT .Q8H ADITYA Rx#:[id number] Zosyn 4.5 GM Premix 4.5 gm In 200 / 200 200 / 200 100 ml @ 200 mls/hr IV.SIG Q6H ADITYA Rx#:[id number] KCl 20 mEq Premix Inj 20 meq In 200 / 200 100 ml @ 50 mls/hr IV.SIG Q2H PRN Rx#:[id number] Vancomycin Inj 1,500 MG In NS 515 / 515 Inj 500 ML @ 250 mls/hr IV.SIG DAILY@0000 ADITYA Rx#:[id number] Output: Estimated Blood Loss 500 / 500 Urine Amount (Catheter) 475 / 475 700 / 700 Indwelling Urethral Catheter 475 / 475 700 / 700 Gastric Drainage 1100 / 1100 Right Nare Nasogastric Tube 1100 / 1100 Wound Drainage 40 / 40 220 / 220 Right Abdomen 40 / 40 220 / 220 Other: # Bowel Movements 0 # Emeses 0 Result Diagrams: 11/02/17 03:59 11/01/17 23:59 Objective Remarks: General: Alert conversant man. Uncomfortable. Head: Atraumatic, normal Neck: Supple airway widely patent no obstructive noises. Lungs: Clear bilaterally without wheezes or crackles, comfortable respiratory pattern. Heart: Normal S1-S2, regular rate and rhythm, no JVD. Abdomen: Complains of general abdominal pain. Abdomen more distended and tympanitic. No peritoneal irritation. Bowel sounds few. Extremities: Warm, well-perfused. Cellulitis left antecubital fossa. Neuro: He is alert, conversant, oriented 3 and appropriate. He moves 4 limbs with purpose and to command. PERRLA. Procedures: Laparoscopic cholecystectomy October 29, 2017 Assessment and Plan - Problem List (1) Severe sepsis with acute organ dysfunction Code(s): A41.9 - Sepsis, unspecified organism; R65.20 - Severe sepsis without septic shock Status: Acute (2) Gangrenous cholecystitis Code(s): K81.0 - Acute cholecystitis Status: Acute (3) Peritonitis Code(s): K65.9 - Peritonitis, unspecified Status: Acute (4) KENNY (acute kidney injury) Code(s): N17.9 - Acute kidney failure, unspecified Status: Acute (5) Paroxysmal SVT (supraventricular tachycardia) Code(s): I47.1 - Supraventricular tachycardia Status: Acute (6) Lactic acidosis Code(s): E87.2 - Acidosis Status: Acute (7) Atrial fibrillation with rapid ventricular response Code(s): I48.91 - Unspecified atrial fibrillation Status: Acute (8) Ileus, postoperative Code(s): K91.89 - Other postprocedural complications and disorders of digestive system; K56.7 - Ileus, unspecified Status: Acute - Assessment and Plan Plan: Plan: 1. Maintenance hydration with isotonic crystalloid. 2. Produce urine greater than 30 cc/h status post angiography contrast. 3. Pipracil/tazobactam 4.5 g every 6 hours intravenous 4. Loaded with 1 dose of vancomycin, maintenance dose. 5. Bronchodilators. 6. Lopressor 25 mg p.o. twice daily 7. Lopressor 5 mg IV as needed supraventricular tachycardia. 8. Pepcid for GI ulcer prophylaxis. 9. SCDs for DVT prophylaxis. 10. Start chemical DVT prophylaxis. 11. Continue statin therapy. 12. Restart XIMENA inhibitor. 13. Incentive spirometry 14. Replace K. 15. Load with digoxin until rate controlled. Back in sinus rhythm, rate controlled, discontinue digoxin. 16. Following rate control start amiodarone infusion for conversion. Convert to p.o. when can take p.o. 17. Nasogastric tube to low intermittent suction. 18. Place central line for TPN. 19. Continue vancomycin for treatment of cellulitis left arm. Overall impression: This elderly gentleman presented clearly septic from a gangrenous gallbladder with surrounding phlegmon and generalized peritonitis. He had lactic acidosis and acute kidney injury which responded to aggressive fluid resuscitation and broad antibiotic coverage. His supraventricular tachycardia/paroxysmal atrial fibrillation has responded to beta-brown and amiodarone therapy. Following removal of his gangrenous gallbladder on October 29 his renal function was much improved. 2 days ago he converted back to atrial fibrillation with rapid ventricular response after episodes of vomiting and inability to keep his oral cardiac medications down. He is hemodynamically unstable now and critically ill. Fluid and electrolyte losses related to large gastric output are complicating arrhythmia control. Critical care time 50 minutes aside from procedures.
[2017-11-02] MEDS ORDERED: Sod Phosphate/Sod Biphosphate (Adult) Enema 133 ML Bottle RECTAL ONE (08:51)
[2017-11-02] MEDS: Lisinopril 5 MG Tablet PO SCH (09:14)
[2017-11-02] MEDS: Metoprolol Tartrate 50 MG Tablet PO SCH ×2 (09:15→20:55)
[2017-11-02] MEDS: Heparin - SQ 10,000 UNITS/ML Vial SQ SCH ×3 (09:15→15:47)
[2017-11-02] MEDS: Famotidine PF Inj 20 MG/2 ML Vial IV.PUSH SCH ×2 (09:19→20:55)
--- NOTE | 2017-11-02 14:12 | P.PNGS ---
Subjective Patient reports: feels better, still having pain Physical Exam Vital signs: Vital Signs 11/01/17 16:00 11/01/17 18:00 11/01/17 20:00 Temperature 98.9 F 99.0 F Pulse Rate 80 84 84 Respiratory Rate 17 23 Blood Pressure 152/70 H 165/82 H Pulse Oximetry 98 98 11/01/17 22:00 11/01/17 22:34 11/02/17 00:00 Temperature 98.7 F Pulse Rate 80 80 Respiratory Rate 25 H Blood Pressure 168/83 H Pulse Oximetry 98 100 11/02/17 02:00 11/02/17 04:00 11/02/17 06:00 Temperature 98.5 F Pulse Rate 86 76 74 Respiratory Rate 22 Blood Pressure 176/108 H Pulse Oximetry 96 11/02/17 08:00 11/02/17 10:00 11/02/17 12:00 Temperature 98.9 F 99.2 F Pulse Rate 78 72 77 Respiratory Rate 24 15 Blood Pressure 170/82 H 165/80 H Pulse Oximetry 98 97 Intake & Output 11/01/17 11/02/17 11/02/17 18:59 06:59 18:59 Intake Total 2650 / 2650 1715 / 1715 350 / 350 Output Total 2115 / 2115 920 / 920 Balance 535 / 535 795 / 795 350 / 350 Weight 95.8 kg Intake: IV 2650 / 2650 1715 / 1715 350 / 350 Cordarone Inj 450 MG In D5W Inj 250 / 250 250 / 250 241 ML @ 1 MG/MIN 33.33 mls/hr IV.CONT TITRATE PRN Rx#: [id number] NS Inj 1,000 ML @ 125 mls/hr IV 1999 / 1999 1000 / 1000 .CONT .Q8H ADITYA Rx#:[id number] Zosyn 4.5 GM Premix 4.5 gm In 200 / 200 200 / 200 100 / 100 100 ml @ 200 mls/hr IV.SIG Q6H ADITYA Rx#:[id number] KCl 20 mEq Premix Inj 20 meq In 200 / 200 100 ml @ 50 mls/hr IV.SIG Q2H PRN Rx#:[id number] Vancomycin Inj 1,500 MG In NS 515 / 515 Inj 500 ML @ 250 mls/hr IV.SIG DAILY@0000 ADITYA Rx#:[id number] Output: Estimated Blood Loss 500 / 500 Urine Amount (Catheter) 475 / 475 700 / 700 Indwelling Urethral Catheter 475 / 475 700 / 700 Gastric Drainage 1100 / 1100 Right Nare Nasogastric Tube 1100 / 1100 Wound Drainage 40 / 40 220 / 220 Right Abdomen 40 / 40 220 / 220 Other: # Bowel Movements 0 # Emeses 0 - Constitutional no acute distress - Routine Abdominal Exam Present: soft Comments: minimal postop pain, sero-sanguinous drainage from SONIA - Urinary Catheter Management Indwelling Urethral Catheter Cath placed during this visit: yes Urethral indwelling: Yes Reason for continuing: Hourly intake/output Insertion date: 10/29/17 Insertion time: 07:17 Assessment and Plan - Assessment (1) Cholecystitis, acute with cholelithiasis Code(s): K80.00 - Calculus of gallbladder with acute cholecystitis without obstruction Status: Acute Plan: 72 year old male POD4 lap bing for perforated gallbladder - ileus better -Continue NGT to LIWS -Okay for ice and popsicles -Throat spray PRN for sore throat -IVF -Heart rate control per ICU will followl (2) Sepsis Code(s): A41.9 - Sepsis, unspecified organism Status: Acute (3) SVT (supraventricular tachycardia) Code(s): I47.1 - Supraventricular tachycardia Status: Acute (4) KENNY (acute kidney injury) Code(s): N17.9 - Acute kidney failure, unspecified Status: Acute (1) Cholecystitis, acute with cholelithiasis Qualifiers: Cholelithiasis location: gallbladder Biliary obstruction: without biliary obstruction Qualified Code(s): K80.00 - Calculus of gallbladder with acute cholecystitis without obstruction (2) Sepsis Qualifiers: Sepsis type: sepsis due to unspecified organism Qualified Code(s): A41.9 - Sepsis, unspecified organism
[2017-11-02] MEDS: Labetalol HCl Inj 100 MG/20 ML Vial IV.PUSH PRN (17:37)
[2017-11-03] MEDS: Sod Chloride 0.9% Inj 1,000 ML IV.CONT SCH ×3 (01:00→16:48)
[2017-11-03] MEDS: Heparin - SQ 10,000 UNITS/ML Vial SQ SCH ×4 (01:00→23:28)
[2017-11-03] MEDS: Vancomycin Inj 1,500 MG in Sodium Chlor 0.9% Inj 500 ML IV.SIG SCH ×3 (01:01→23:29)
[2017-11-03] MEDS: Piperacil/Tazo 4.5 GM Premix 4.5 GM/100 ML BAG IV.SIG SCH ×4 (03:06→20:26)
[2017-11-03] MEDS: Chlorhexidine Gluconate 2% 1 Pack (2 Cloths) TOPICAL SCH (03:06)
[2017-11-03 04:35] LABS: Hematocrit 28.2 % (39.0-51.0); Hemoglobin 9.3 gm/dL (13.0-17.0); Mean Corpuscular Hemoglobin 29.5 pg (27.0-34.0); Mean Corpuscular Volume 89.4 fL (80.0-100.0); Mean Platelet Volume 8.7 fL (7.0-11.0); Platelet Count 293 th/mm3 (150-450); Red Blood Count 3.16 mil/mm3 (4.50-5.90); Red Cell Distribution Width 15.6 % (11.6-17.2); White Blood Count 12.6 th/mm3 (4.0-11.0)
[2017-11-03] MEDS: Labetalol HCl Inj 100 MG/20 ML Vial IV.PUSH PRN ×4 (05:19→22:20)
[2017-11-03 05:28] LABS: Alanine Aminotransferase 82 U/L (12-78); Albumin 1.7 g/dL (3.4-5.0); Anion Gap 11 meq/L (5-15); Aspartate Aminotransferase 79 U/L (15-37); Blood Urea Nitrogen 14 mg/dL (7-18); Carbon Dioxide 27.4 meq/L (21.0-32.0); Chloride 107 meq/L (98-107); Glomerular Filtration Rate Greater Than 89 mL/min (>89); Glucose,Random 93 mg/dL (74-106); Sodium 145 meq/L (136-145)
[2017-11-03 05:32] LABS: Alkaline Phosphatase 77 U/L (45-117); Total Protein 5.6 g/dL (6.4-8.2)
[2017-11-03] MEDS: Famotidine PF Inj 20 MG/2 ML Vial IV.PUSH SCH ×2 (08:33→20:25)
[2017-11-03] MEDS: Lisinopril 5 MG Tablet PO SCH (08:34)
[2017-11-03] MEDS: Metoprolol Tartrate 50 MG Tablet PO SCH ×2 (08:34→20:25)
--- NOTE | 2017-11-03 09:38 | P.PNGS ---
Subjective Interval history: Resting in bed; Feeling better' +BM Physical Exam Vital signs: Vital Signs 11/02/17 10:00 11/02/17 12:00 11/02/17 14:00 Temperature 99.2 F Pulse Rate 72 77 82 Respiratory Rate 15 Blood Pressure 165/80 H Pulse Oximetry 97 11/02/17 16:00 11/02/17 18:00 11/02/17 20:00 Temperature 98.2 F 99.1 F Pulse Rate 74 75 72 Respiratory Rate 30 H 24 Blood Pressure 164/79 H 159/78 H Pulse Oximetry 96 98 11/02/17 22:00 11/03/17 00:00 11/03/17 02:00 Temperature 99 F Pulse Rate 68 66 68 Respiratory Rate 21 Blood Pressure 174/83 H Pulse Oximetry 97 11/03/17 04:00 11/03/17 06:00 11/03/17 08:00 Temperature 98.6 F 97.9 F Pulse Rate 70 71 71 Respiratory Rate 22 20 Blood Pressure 174/84 H 178/83 H Pulse Oximetry 97 94 L Intake & Output 11/02/17 11/03/17 11/03/17 18:59 06:59 18:59 Intake Total 1964 1000 / 1000 Output Total 3455 / 3455 2695 / 2695 Balance -1490 / -1490 -730 / -730 1000 / 1000 Weight 95.6 kg Intake: IV 1964 1000 / 1000 Cordarone Inj 450 MG In D5W Inj 250 / 250 250 / 250 241 ML @ 1 MG/MIN 33.33 mls/hr IV.CONT TITRATE PRN Rx#: [id number] NS Inj 1,000 ML @ 125 mls/hr IV 1000 / 1000 1000 / 1000 1000 / 1000 .CONT .Q8H ADITYA Rx#:[id number] Zosyn 4.5 GM Premix 4.5 gm In 200 / 200 200 / 200 100 ml @ 200 mls/hr IV.SIG Q6H ADITYA Rx#:[id number] Vancomycin Inj 1,500 MG In NS 515 / 515 515 / 515 Inj 500 ML @ 250 mls/hr IV.SIG Q12H ADITYA Rx#:[id number] Output: Urine Amount (Catheter) 700 / 700 625 / 625 Indwelling Urethral Catheter 700 / 700 625 / 625 Gastric Drainage 2650 / 2650 1999 Right Nare Nasogastric Tube 2650 / 2650 1999 Wound Drainage 105 / 105 70 / 70 Right Abdomen 105 / 105 70 / 70 Other: Date of Last Bowel Movement 11/02/17 11/02/17 # Incontinent Bowel Movements 1 Narrative: Alert and awake Cardio: RRR Resp: CTAB Abd: soft; incision sites c/d/i - Urinary Catheter Management Indwelling Urethral Catheter Cath placed during this visit: yes Urethral indwelling: Yes Reason for continuing: Hourly intake/output Insertion date: 10/29/17 Insertion time: 07:17 Assessment and Plan - Assessment (1) Cholecystitis, acute with cholelithiasis Code(s): K80.00 - Calculus of gallbladder with acute cholecystitis without obstruction Status: Acute Plan: 72 year old male POD5 lap bing for perforated gallbladder - Ileus resolved -DC NGT -DC Montoya -DC SONIA -Clear liquids -PT -If heart rate continues to remain stable when OOB; okay to transfer to 7N (2) Sepsis Code(s): A41.9 - Sepsis, unspecified organism Status: Acute (3) SVT (supraventricular tachycardia) Code(s): I47.1 - Supraventricular tachycardia Status: Acute (4) KENNY (acute kidney injury) Code(s): N17.9 - Acute kidney failure, unspecified Status: Acute (1) Cholecystitis, acute with cholelithiasis Qualifiers: Cholelithiasis location: gallbladder Biliary obstruction: without biliary obstruction Qualified Code(s): K80.00 - Calculus of gallbladder with acute cholecystitis without obstruction (2) Sepsis Qualifiers: Sepsis type: sepsis due to unspecified organism Qualified Code(s): A41.9 - Sepsis, unspecified organism
[2017-11-03] MEDS: Potassium Chlor 20 mEq Premix 20 MEQ/100 ML PIGGYBACK IV.SIG PRN ×4 (09:40→17:10)
--- NOTE | 2017-11-03 10:01 | P.PNCC ---
Subjective Subjective Remarks/Hospital Course: - Diagnosis (1) Severe sepsis with acute organ dysfunction (2) Cholecystitis, acute with cholelithiasis (3) KENNY (acute kidney injury) (4) Paroxysmal SVT (supraventricular tachycardia) 10/29: This otherwise healthy 72-year-old active gentleman has had nagging abdominal pain for about a week. It is reached a crescendo pattern where he is buckled over and discomfort and presents to the [facility] emergency department where CAT scan of the abdomen reveals a markedly inflamed gallbladder with surrounding phlegmon/edema. A thoracic aortogram obtained at the same time to rule out dissection is normal. In the emergency department he developed a supraventricular tachycardia in the 160s. This was treated initially with Cardizem at [facility] and I have started to load him with beta- brown for prevention of recurrence. Additional immediate problems include acute kidney injury with a creatinine 1.8 related to his inability to keep food down and some vomiting earlier. He denies wheezing or shortness of breath but his CAT scan reveals some minor emphysema. The lung parenchyma is generally sound for his age. He has been loaded with antibiotics and hydrated with isotonic crystalloid. Heart rate is now well controlled. He is medically clear for surgery. His low-level sepsis and dehydration obviously increases risk for surgery. 10/30: Gangrenous gallbladder removed laparoscopically last evening. Patient's general status is much improved today. Renal function much better after aggressive hydration and urine output improved. Patient is alert and conversant. Pain control with DRIER ATTENDANT appears good. 10/31: Patient is developed vomiting and is unable to keep his oral heart medication down. I will discuss possible NG tube placement with the surgery service. He developed atrial fibrillation with rapid ventricular response last evening and required transfer back down to the ICU. Cardizem is on back order so esmolol infusion was used to heart rate. Following discussion with Dr. Valles , it appears to me the safest method to control his heart rate and add amiodarone for rhythm conversion is to replace the esmolol with digoxin now. 11/01: Patient remains in sinus rhythm and is normotensive. Nasogastric output approaching 3 L. Ileus is expected following diffuse peritonitis. He feels much better with the nasogastric tube down. We will follow his electrolytes and fluid balance closely particularly in the context of his supraventricular arrhythmias. 11/02: Patient remains in sinus rhythm with mild hypertension. Will double beta -brown and add lisinopril daily. Nasogastric tube output remains copious, averaging 1400 per shift. He clearly has an ileus at this point and will just need to ride it out. He is developed a marked cellulitis in his left antecubital fossa related to an IV site. This may be from potassium replacement irritation. I suspect I will have to place a central line in him for better access and probable institution of TPN. 11/03: still in sinus rhythm. tolerating sips of clears. clinically improving. denies complaints. needs to get OOB and ambulating. Objective Vital Signs / I&O: Vital Signs 11/02/17 10:00 11/02/17 12:00 11/02/17 14:00 Temperature 37.3 C Pulse Rate 72 77 82 Respiratory Rate 15 Blood Pressure 165/80 H Pulse Oximetry 97 11/02/17 16:00 11/02/17 18:00 11/02/17 20:00 Temperature 36.8 C 37.3 C Pulse Rate 74 75 72 Respiratory Rate 30 H 24 Blood Pressure 164/79 H 159/78 H Pulse Oximetry 96 98 11/02/17 22:00 11/03/17 00:00 11/03/17 02:00 Temperature 37.2 C Pulse Rate 68 66 68 Respiratory Rate 21 Blood Pressure 174/83 H Pulse Oximetry 97 11/03/17 04:00 11/03/17 06:00 11/03/17 08:00 Temperature 37.0 C 36.6 C Pulse Rate 70 71 71 Respiratory Rate 22 20 Blood Pressure 174/84 H 178/83 H Pulse Oximetry 97 94 L Intake & Output 11/02/17 11/03/17 11/03/17 18:59 06:59 18:59 Intake Total 1964 1000 / 1000 Output Total 3455 / 3455 2695 / 2695 Balance -1490 / -1490 -730 / -730 1000 / 1000 Weight 95.6 kg Intake: IV 1964 1000 / 1000 Cordarone Inj 450 MG In D5W Inj 250 / 250 250 / 250 241 ML @ 1 MG/MIN 33.33 mls/hr IV.CONT TITRATE PRN Rx#: [id number] NS Inj 1,000 ML @ 125 mls/hr IV 1000 / 1000 1000 / 1000 1000 / 1000 .CONT .Q8H ADITYA Rx#:[id number] Zosyn 4.5 GM Premix 4.5 gm In 200 / 200 200 / 200 100 ml @ 200 mls/hr IV.SIG Q6H ADITYA Rx#:[id number] Vancomycin Inj 1,500 MG In NS 515 / 515 515 / 515 Inj 500 ML @ 250 mls/hr IV.SIG Q12H ADITYA Rx#:[id number] Output: Urine Amount (Catheter) 700 / 700 625 / 625 Indwelling Urethral Catheter 700 / 700 625 / 625 Gastric Drainage 2650 / 2650 1999 Right Nare Nasogastric Tube 2650 / 2650 1999 Wound Drainage 105 / 105 70 / 70 Right Abdomen 105 / 105 70 / 70 Other: Date of Last Bowel Movement 11/02/17 11/02/17 # Incontinent Bowel Movements 1 Result Diagrams: 11/03/17 03:14 11/03/17 03:14 Objective Remarks: General: Alert conversant man. more comfortable today. Head: Atraumatic, normal Neck: Supple airway widely patent no obstructive noises. Lungs: equal chest rise, nc o2. comfortable respiratory pattern. Heart: normal rate of 62, regular rhythm. sinus. no JVD. Abdomen: soft, minimally tender, nondistended. No peritoneal irritation. Bowel sounds few. Extremities: Warm, well-perfused. Cellulitis left antecubital fossa. trace edema. Neuro: He is alert, conversant, oriented 3 and appropriate. He moves 4 limbs with purpose and to command. PERRLA. Procedures: Laparoscopic cholecystectomy October 29, 2017 Assessment and Plan - Problem List (1) Severe sepsis with acute organ dysfunction Code(s): A41.9 - Sepsis, unspecified organism; R65.20 - Severe sepsis without septic shock Status: Acute (2) Gangrenous cholecystitis Code(s): K81.0 - Acute cholecystitis Status: Acute (3) Peritonitis Code(s): K65.9 - Peritonitis, unspecified Status: Acute (4) KENNY (acute kidney injury) Code(s): N17.9 - Acute kidney failure, unspecified Status: Acute (5) Paroxysmal SVT (supraventricular tachycardia) Code(s): I47.1 - Supraventricular tachycardia Status: Acute (6) Lactic acidosis Code(s): E87.2 - Acidosis Status: Acute (7) Atrial fibrillation with rapid ventricular response Code(s): I48.91 - Unspecified atrial fibrillation Status: Acute (8) Ileus, postoperative Code(s): K91.89 - Other postprocedural complications and disorders of digestive system; K56.7 - Ileus, unspecified Status: Acute - Assessment and Plan Plan: Assessment: [id number] with gangrenous cholecystitis now s/p laparoscopic cholecystectomy. clinically improving. ambulate and PT encouraged. from my standpoint, can transfer out of ICU. Active Problems: resolving post-operative ileus post-operative pain perioperative atrial fibrillation- resolved acute protein calorie malnutrition -moderate deconditioned functional status Plan: 1. decrease mivf to 50cc/hr, can likely d/c if taking adequate po 2. d/c zosyn: has had 6 days of empiric broad spectrum therapy, wbc normalizing , source control adequate. 3. aggressive PT. 4. pulmonary toilet 5. OOB and ambulating 6. nebs prn 7. d/c amio drip 8. start PO amio 400mg po bid 9. SCDs 10. SQH 11. Continue statin therapy. 12. continue XIMENA inhibitor. 13. Continue vancomycin for treatment of cellulitis left arm- would plan on 7 full days Overall impression: This elderly gentleman presented clearly septic from a gangrenous gallbladder with surrounding phlegmon and generalized peritonitis. He had lactic acidosis and acute kidney injury which responded to aggressive fluid resuscitation and broad antibiotic coverage. His supraventricular tachycardia/paroxysmal atrial fibrillation has responded to beta-brown and amiodarone therapy. Following removal of his gangrenous gallbladder on October 29 his renal function was much improved. 2 days ago he converted back to atrial fibrillation with rapid ventricular response after episodes of vomiting and inability to keep his oral cardiac medications down. He is hemodynamically unstable now and critically ill. Fluid and electrolyte losses related to large gastric output are complicating arrhythmia control.
[2017-11-03] MEDS ORDERED: Pharmacy Ordered Lab Info OTHER ONE (11:45)
[2017-11-03] MEDS: Amiodarone 200 MG Tablet PO SCH ×2 (12:54→20:25)
[2017-11-04] MEDS ORDERED: niCARdipine Inj 25 MG in Sodium Chlor 0.9% Inj 240 ML IV.CONT PRN (00:12)
[2017-11-04 00:31] LABS: Alanine Aminotransferase 228 U/L (12-78); Albumin 1.8 g/dL (3.4-5.0); Alkaline Phosphatase 71 U/L (45-117); Anion Gap 10 meq/L (5-15); Aspartate Aminotransferase 191 U/L (15-37); Blood Urea Nitrogen 12 mg/dL (7-18); Calcium 8.1 mg/dL (8.5-10.1); Carbon Dioxide 29.2 meq/L (21.0-32.0); Chloride 106 meq/L (98-107); Glomerular Filtration Rate Greater Than 89 mL/min (>89); Glucose,Random 114 mg/dL (74-106); Sodium 145 meq/L (136-145); Total Protein 5.8 g/dL (6.4-8.2)
[2017-11-04 00:34] LABS: Potassium 2.9 meq/L (3.5-5.1)
[2017-11-04] MEDS: Piperacil/Tazo 4.5 GM Premix 4.5 GM/100 ML BAG IV.SIG SCH ×4 (01:06→22:27)
[2017-11-04] MEDS: Potassium Chlor 20 mEq Premix 20 MEQ/100 ML PIGGYBACK IV.SIG PRN ×4 (03:09→10:05)
[2017-11-04 04:09] LABS: Hemoglobin 9.3 gm/dL (13.0-17.0); Mean Corpuscular HGB Conc 33.4 % (32.0-36.0); Mean Corpuscular Hemoglobin 29.3 pg (27.0-34.0); Mean Corpuscular Volume 87.8 fL (80.0-100.0); Mean Platelet Volume 8.9 fL (7.0-11.0); Platelet Count 346 th/mm3 (150-450); Red Blood Count 3.19 mil/mm3 (4.50-5.90); Red Cell Distribution Width 15.9 % (11.6-17.2); White Blood Count 12.2 th/mm3 (4.0-11.0)
--- NOTE | 2017-11-04 04:16 | XR ---
EXAM DATE: 11/04/2017 4:05 AM EDT AGE/SEX: 72 years / Male INDICATIONS: Ileus CLINICAL DATA: This is the patient's subsequent encounter. Patient reports that signs and symptoms h ave been present for 1 week and indicates a pain score of Nonresponsive. MEDICAL/SURGICAL HISTORY: Gastroesophageal reflux disease. Hypertension. Hiatal hernia. Candelario rs. Inguinal hernia repair. Lumbar laminectomy. COMPARISON: [facility] – [place], ABDOMEN 1V KUB, 10/31/2017. . FINDINGS: Distended loops of small bowel are again seen in the left mid abdomen without significant change. Na sogastric tube with tip at the distal stomach. Stomach is decompressed. No free air. CONCLUSION: No significant change small bowel distention. Nasogastric tube tip is at the distal stomach. Stomach is decompressed. Electronically signed by: Stephan Langford MD 11/04/2017 4:15 AM EDT
[2017-11-04 04:41] LABS: Lipase 2063 U/L (73-393); Magnesium 2.3 mg/dL (1.5-2.5); Phosphorus 3.4 mg/dL (2.5-4.9)
[2017-11-04 04:45] LABS: Creatine Kinase 26 U/L (39-308)
[2017-11-04] MEDS: Labetalol HCl Inj 100 MG/20 ML Vial IV.PUSH PRN (06:30)
[2017-11-04] MEDS: Famotidine PF Inj 20 MG/2 ML Vial IV.PUSH SCH ×2 (08:32→22:28)
[2017-11-04] MEDS: Heparin - SQ 10,000 UNITS/ML Vial SQ SCH ×2 (08:32→15:53)
[2017-11-04] MEDS: Amiodarone 200 MG Tablet PO SCH ×2 (08:33→22:27)
[2017-11-04] MEDS: Lisinopril 10 MG Tablet PO SCH (08:34)
--- NOTE | 2017-11-04 08:38 | P.PNGS ---
Subjective Patient reports: diarrhea, nausea, vomiting (had severe N/V last night, NG replaced and got back 1L bile. feels better this am) Physical Exam Vital signs: Vital Signs 11/03/17 10:00 11/03/17 12:00 11/03/17 12:56 Temperature 98.5 F Pulse Rate 66 68 Respiratory Rate 20 Blood Pressure 180/84 H Pulse Oximetry 94 L 98 11/03/17 14:00 11/03/17 16:00 11/03/17 18:00 Temperature 98.6 F Pulse Rate 70 66 66 Respiratory Rate 20 Blood Pressure 145/77 H Pulse Oximetry 93 L 11/03/17 19:10 11/03/17 20:00 11/03/17 22:00 Temperature 98.7 F Pulse Rate 69 67 Respiratory Rate 24 Blood Pressure 176/87 H Pulse Oximetry 94 L 97 11/04/17 00:00 11/04/17 02:00 11/04/17 04:00 Temperature 99 F 98.4 F Pulse Rate 62 66 67 Respiratory Rate 18 21 Blood Pressure 193/86 H 148/76 H Pulse Oximetry 98 97 11/04/17 06:00 Temperature Pulse Rate 71 Respiratory Rate Blood Pressure Pulse Oximetry Intake & Output 11/03/17 11/04/17 11/04/17 18:59 06:59 18:59 Intake Total 2860 / 2860 915 / 915 100 / 100 Output Total 3400 / 3400 Balance 2860 / 2860 -2485 / -2485 100 / 100 Weight 94.4 kg Intake: IV 1900 / 1900 915 / 915 100 / 100 NS Inj 1,000 ML @ 125 mls/hr IV 1000 / 1000 .CONT .Q8H ADITYA Rx#:[id number] Zosyn 4.5 GM Premix 4.5 gm In 200 / 200 200 / 200 100 ml @ 200 mls/hr IV.SIG Q6H ADITYA Rx#:[id number] KCl 20 mEq Premix Inj 20 meq In 200 / 200 200 / 200 100 / 100 100 ml @ 50 mls/hr IV.SIG Q2H PRN Rx#:[id number] Vancomycin Inj 1,500 MG In NS 500 / 500 515 / 515 Inj 500 ML @ 250 mls/hr IV.SIG Q12H ADITYA Rx#:[id number] Oral 960 / 960 Output: Urine 400 / 400 Emesis 400 / 400 Gastric Drainage 2600 / 2600 Left Nare Nasogastric Tube 2600 / 2600 Other: # Voids 4 Date of Last Bowel Movement 11/03/17 11/04/17 # Bowel Movements 3 1 # Emeses 4 - Routine Abdominal Exam Present: normoactive bowel sounds, distended, surgical scars - Urinary Catheter Management Indwelling Urethral Catheter Cath placed during this visit: yes, but has since been removed by the nurse Urethral indwelling: Yes Reason for continuing: Decision to DC catheter Insertion date: 10/29/17 Insertion time: 07:17 Removal date: 11/03/17 Removal time: 10:00 Assessment and Plan - Assessment (1) Cholecystitis, acute with cholelithiasis Code(s): K80.00 - Calculus of gallbladder with acute cholecystitis without obstruction Status: Acute Plan: 72 year old male POD5 lap bing for perforated gallbladder - Ileus resolved -DC NGT -DC Montoya -DC SONIA -Clear liquids -PT -If heart rate continues to remain stable when OOB; okay to transfer to N (2) Sepsis Code(s): A41.9 - Sepsis, unspecified organism Status: Acute (3) SVT (supraventricular tachycardia) Code(s): I47.1 - Supraventricular tachycardia Status: Acute (4) KENNY (acute kidney injury) Code(s): N17.9 - Acute kidney failure, unspecified Status: Acute (5) Pancreatitis due to common bile duct stone Code(s): K85.90 - Acute pancreatitis without necrosis or infection, unspecified ; K80.50 - Calculus of bile duct without cholangitis or cholecystitis without obstruction Status: Acute - Plan Labs cw CBD stone, will check MRCP today, may need ERCP Elevate LUE, US to RO DVT Leave NG, likely has upper bowel ileus from pancreatitis (1) Cholecystitis, acute with cholelithiasis Qualifiers: Cholelithiasis location: gallbladder Biliary obstruction: without biliary obstruction Qualified Code(s): K80.00 - Calculus of gallbladder with acute cholecystitis without obstruction (2) Sepsis Qualifiers: Sepsis type: sepsis due to unspecified organism Qualified Code(s): A41.9 - Sepsis, unspecified organism
--- NOTE | 2017-11-04 09:47 | P.PN ---
Subjective Interval history: academic support specialist Notes: 10/29: This otherwise healthy 72-year-old active gentleman has had nagging abdominal pain for about a week. It is reached a crescendo pattern where he is buckled over and discomfort and presents to the [place] emergency department where CAT scan of the abdomen reveals a markedly inflamed gallbladder with surrounding phlegmon/edema. A thoracic aortogram obtained at the same time to rule out dissection is normal. In the emergency department he developed a supraventricular tachycardia in the 160s. This was treated initially with Cardizem at [place] and I have started to load him with beta- brown for prevention of recurrence. Additional immediate problems include acute kidney injury with a creatinine 1.8 related to his inability to keep food down and some vomiting earlier. He denies wheezing or shortness of breath but his CAT scan reveals some minor emphysema. The lung parenchyma is generally sound for his age. He has been loaded with antibiotics and hydrated with isotonic crystalloid. Heart rate is now well controlled. He is medically clear for surgery. His low-level sepsis and dehydration obviously increases risk for surgery. 10/30: Gangrenous gallbladder removed laparoscopically last evening. Patient's general status is much improved today. Renal function much better after aggressive hydration and urine output improved. Patient is alert and conversant. Pain control with [employer]ING [employer] appears good. 10/31: Patient is developed vomiting and is unable to keep his oral heart medication down. I will discuss possible NG tube placement with the surgery service. He developed atrial fibrillation with rapid ventricular response last evening and required transfer back down to the ICU. Cardizem is on back order so esmolol infusion was used to heart rate. Following discussion with Dr. Valles , it appears to me the safest method to control his heart rate and add amiodarone for rhythm conversion is to replace the esmolol with digoxin now. 11/01: Patient remains in sinus rhythm and is normotensive. Nasogastric output approaching 3 L. Ileus is expected following diffuse peritonitis. He feels much better with the nasogastric tube down. We will follow his electrolytes and fluid balance closely particularly in the context of his supraventricular arrhythmias. 11/02: Patient remains in sinus rhythm with mild hypertension. Will double beta -brown and add lisinopril daily. Nasogastric tube output remains copious, averaging 1400 per shift. He clearly has an ileus at this point and will just need to ride it out. He is developed a marked cellulitis in his left antecubital fossa related to an IV site. This may be from potassium replacement irritation. I suspect I will have to place a central line in him for better access and probable institution of TPN. 11/03: still in sinus rhythm. tolerating sips of clears. clinically improving. denies complaints. needs to get OOB and ambulating. Hospitalist Notes: 11/04: Seen in his bedroom in the presence of nurse, already seen by General Surgery, Ileus resolved, was removed the SONIA drain POD #5, Laparoscopic cholecystectomy perforated Gallbladder, continue with NG tube in place, as per nurse the patient started vomiting and had to be placed new NG tube, has probable CGD stone and was asked for MRCP and may need ERCP, needed for Left Upper extremity US due to edema. Physical Exam Vital signs: Vital Signs 11/03/17 10:00 11/03/17 12:00 11/03/17 12:56 Temperature 98.5 F Pulse Rate 66 68 Respiratory Rate 20 Blood Pressure 180/84 H Pulse Oximetry 94 L 98 11/03/17 14:00 11/03/17 16:00 11/03/17 18:00 Temperature 98.6 F Pulse Rate 70 66 66 Respiratory Rate 20 Blood Pressure 145/77 H Pulse Oximetry 93 L 11/03/17 19:10 11/03/17 20:00 11/03/17 22:00 Temperature 98.7 F Pulse Rate 69 67 Respiratory Rate 24 Blood Pressure 176/87 H Pulse Oximetry 94 L 97 11/04/17 00:00 11/04/17 02:00 11/04/17 04:00 Temperature 99 F 98.4 F Pulse Rate 62 66 67 Respiratory Rate 18 21 Blood Pressure 193/86 H 148/76 H Pulse Oximetry 98 97 11/04/17 06:00 Temperature Pulse Rate 71 Respiratory Rate Blood Pressure Pulse Oximetry Intake & Output 11/03/17 11/04/17 11/04/17 18:59 06:59 18:59 Intake Total 2860 / 2860 915 / 915 100 / 100 Output Total 3400 / 3400 Balance 2860 / 2860 -2485 / -2485 100 / 100 Weight 94.4 kg Intake: IV 1900 / 1900 915 / 915 100 / 100 NS Inj 1,000 ML @ 125 mls/hr IV 1000 / 1000 .CONT .Q8H ADITYA Rx#:[id number] Zosyn 4.5 GM Premix 4.5 gm In 200 / 200 200 / 200 100 ml @ 200 mls/hr IV.SIG Q6H ADITYA Rx#:[id number] KCl 20 mEq Premix Inj 20 meq In 200 / 200 200 / 200 100 / 100 100 ml @ 50 mls/hr IV.SIG Q2H PRN Rx#:[id number] Vancomycin Inj 1,500 MG In NS 500 / 500 515 / 515 Inj 500 ML @ 250 mls/hr IV.SIG Q12H ADITYA Rx#:[id number] Oral 960 / 960 Output: Urine 400 / 400 Emesis 400 / 400 Gastric Drainage 2600 / 2600 Left Nare Nasogastric Tube 2600 / 2600 Other: # Voids 4 Date of Last Bowel Movement 11/03/17 11/04/17 # Bowel Movements 3 1 # Emeses 4 Narrative: General: Alert conversant man. more comfortable today. NG tube in place. Head: Atraumatic, normal Neck: Supple airway widely patent no obstructive noises. Lungs: equal chest rise, nc o2. comfortable respiratory pattern. Heart: normal rate of 62, regular rhythm. sinus. no JVD. Abdomen: soft, minimally tender, nondistended. No peritoneal irritation. Bowel sounds few. Extremities: Warm, well-perfused. Cellulitis left antecubital fossa. trace edema. Neuro: He is alert, conversant, oriented 3 and appropriate. He moves 4 limbs with purpose and to command. PERRLA. - Urinary Catheter Management Indwelling Urethral Catheter Cath placed during this visit: yes, but has since been removed by the nurse Urethral indwelling: Yes Reason for continuing: Decision to DC catheter Insertion date: 10/29/17 Insertion time: 07:17 Removal date: 11/03/17 Removal time: 10:00 Results - Labs CBC & Chem 7: 11/04/17 03:47 11/03/17 23:34 Laboratory Results - last 24 hr 11/03/17 11/03/17 11/04/17 11:45 23:34 00:03 WBC RBC Hgb Hct MCV MCH MCHC RDW Plt Count MPV Sodium 145 Potassium 2.9 L* Chloride 106 Carbon Dioxide 29.2 Anion Gap 10 BUN 12 Creatinine 0.79 Estimated GFR Greater than 89 POC Glucose 111 H Random Glucose 114 H Lactic Acid Calcium 8.1 L Phosphorus Magnesium Total Bilirubin 1.3 H AST 191 H ALT 228 H Alkaline Phosphatase 71 Total Creatine Kinase Troponin I Total Protein 5.8 L Albumin 1.8 L Lipase Vancomycin Trough 16.9 H 11/04/17 11/04/17 11/04/17 03:47 03:47 03:47 WBC 12.2 H RBC 3.19 L Hgb 9.3 L Hct 28.0 L MCV 87.8 MCH 29.3 MCHC 33.4 RDW 15.9 Plt Count 346 MPV 8.9 Sodium Potassium Chloride Carbon Dioxide Anion Gap BUN Creatinine Estimated GFR POC Glucose Random Glucose Lactic Acid 0.8 Calcium Phosphorus 3.4 Magnesium 2.3 Total Bilirubin AST ALT Alkaline Phosphatase Total Creatine Kinase 26 L Troponin I Less than 0.02 L Total Protein Albumin Lipase 2063 H Vancomycin Trough Microbiology 10/29/17 06:10 Blood - Peripheral Aerobic Blood Culture - Final No growth in 5 days 10/29/17 06:10 Blood - Peripheral Anaerobic Blood Culture - Final No growth in 5 days 10/29/17 05:50 Blood - Peripheral Aerobic Blood Culture - Final No growth in 5 days 10/29/17 05:50 Blood - Peripheral Anaerobic Blood Culture - Final No growth in 5 days - Imaging Impressions Abdomen X-Ray 11/04/17 00:00 CONCLUSION: No significant change small bowel distention. Nasogastric tube tip is at the distal stomach. Stomach is decompressed. - Procedures Laparoscopic cholecystectomy October 29, 2017 Assessment and Plan - Plan This is a pleasant 72 y/o Male with gangrenous Cholecystitis status post Laparoscopic cholecystectomy 1. Gangrenous Cholecystitis status post Laparoscopic Cholecystectomy improving as per General Surgery was on Empiric IV antibiotics Zosyn and were discontinued, toady needed for new NG tube placement General surgery thinking in residual CBD stone asked for MRCP and may need ERCP. found no biliary obstruction small bowel distention, 2. Post Operative Ileus resolving had the need for NG tube placement. 3. New Onset of Atrial Fibrillation resolved, removed Amiodarone drip continue amiodarone 400 mg BID 4. Acute protein Calorie Malnutrition Moderate 5. Physical Deconditioning continue Physical Therapy 6. Cellulitis of the left arm on Vancomycin. plan for seven days of treatment. asked for US today had Left cephalic vein nonocclusive thrombus. 7. Hypokalemia asked for new Potassium level and following. DVT prophylaxis with Heparin. Encourage activity. Overall impression: This elderly gentleman presented clearly septic from a gangrenous gallbladder with surrounding phlegmon and generalized peritonitis. He had lactic acidosis and acute kidney injury which responded to aggressive fluid resuscitation and broad antibiotic coverage. His supraventricular tachycardia/paroxysmal atrial fibrillation has responded to beta-brown and amiodarone therapy. Following removal of his gangrenous gallbladder on October 29 his renal function was much improved. 2 days ago he converted back to atrial fibrillation with rapid ventricular response after episodes of vomiting and inability to keep his oral cardiac medications down. He is hemodynamically unstable now and critically ill. Fluid and electrolyte losses related to large gastric output are complicating arrhythmia control. Code Status: Full code. Discussed Condition With: patient and Nurse. Discharge Planning: once cleared by specialists
--- NOTE | 2017-11-04 11:58 | US ---
EXAM DATE: 11/04/2017 11:52 AM EDT AGE/SEX: 72 years / Male INDICATIONS: Left arm swelling. CLINICAL DATA: This is the patient's initial encounter. Patient reports that signs and symptoms have been present for 1 day and indicates a pain score of 0/10. MEDICAL/SURGICAL HISTORY: Arthritis. Gastroesophageal reflux disease. Hypertension. Hiatal h ernia. High cholesterol. Gastric ulcer. Spinal stenosis. Tendonitis. . Arthroscopy. Fusion of cervi audra spine. Hernia repair. Laminectomy. Bilateral knee replacement. Foot surgery. Sinus surgery. Wrist surgery. COMPARISON: No prior exams available for comparison. FINDINGS: The internal jugular, subclavian, axillary, brachial, basilic, radial and ulnar veins are patent with a normal grayscale and color Doppler appearance. There is nonocclusive thrombus noted in the left cephalic vein. Other: None. CONCLUSION: 1. Left cephalic vein nonocclusive thrombus. Electronically signed by: Sohail Morgan MD 11/04/2017 11:56 AM EDT
--- NOTE | 2017-11-04 12:55 | MR ---
EXAM DATE: 11/04/2017 12:36 PM EDT AGE/SEX: 72 years / Male INDICATIONS: Abdominal pain. Post cholecystectomy. CLINICAL DATA: This is the patient's subsequent encounter. Patient reports that signs and symptoms h ave been present for 3 days and indicates a pain score of 5/10. MEDICAL/SURGICAL HISTORY: Hypertension. Hypercholesterolemia. Gastroesophageal reflux disease . Fusion, cervical. Fusion, lumbar. Cholecystectomy. bilateral knee replacement COMPARISON: [facility], ABDOMEN 1V KUB, 11/04/2017. [facility], CTA THOR ABD AORTA W CONTRAST W 3D, 10/29/2017. . TECHNIQUE: Multiplanar, multisequence images of the abdomen were obtained without contrast including dedicated cholangiographic images. FINDINGS: The patient is status post cholecystectomy. There is no biliary ductal dilatation seen. There are pilar ateral pleural effusions noted. There is a small amount of ascites. Enteric tube is noted terminating in the stomach. There is subcutaneous edema and intramuscular edema along the left and right flanks. Scattered hepatic cysts. There are dilated loops of small bowel seen. Pancreas, adrenals, kidneys, s pleen, liver unremarkable. CONCLUSION: 1. No evidence for biliary obstruction. 2. Dilated small bowel. 3. Ascites. Electronically signed by: Sohail Morgan MD 11/04/2017 12:53 PM EDT
[2017-11-04] MEDS: Vancomycin Inj 1,500 MG in Sodium Chlor 0.9% Inj 500 ML IV.SIG SCH (14:42)
[2017-11-04] MEDS: Metoprolol Tartrate 50 MG Tablet PO SCH ×2 (14:42→18:05)
--- NOTE | 2017-11-04 16:27 | ECG ---
Date Performed: 11/03/2017 Time Performed: 23:54:44 PTAGE: 72 years EKG: Sinus rhythm . Possible inferior infarct - age undetermined Septal and lateral ST-T changes are nonspecific Since the previous tracing, no significant change noted Abnormal ECG PREVIOUS TRACING : 10/31/2017 06.57 DOCTOR: Avila Ramirez Interpretating Date/Time 11/04/2017 16:22:15
[2017-11-05] MEDS: Metoprolol Tartrate 50 MG Tablet PO SCH ×4 (01:09→18:22)
[2017-11-05] MEDS: Heparin - SQ 10,000 UNITS/ML Vial SQ SCH ×3 (01:09→18:21)
[2017-11-05] MEDS: Vancomycin Inj 1,500 MG in Sodium Chlor 0.9% Inj 500 ML IV.SIG SCH (01:10)
[2017-11-05] MEDS: Piperacil/Tazo 4.5 GM Premix 4.5 GM/100 ML BAG IV.SIG SCH ×2 (01:10→09:50)
[2017-11-05 05:35] LABS: Hematocrit 28.1 % (39.0-51.0); Hemoglobin 9.4 gm/dL (13.0-17.0); Mean Corpuscular HGB Conc 33.7 % (32.0-36.0); Mean Corpuscular Hemoglobin 30.1 pg (27.0-34.0); Mean Corpuscular Volume 89.3 fL (80.0-100.0); Platelet Count 346 th/mm3 (150-450); Red Blood Count 3.14 mil/mm3 (4.50-5.90); Red Cell Distribution Width 16.2 % (11.6-17.2); White Blood Count 11.9 th/mm3 (4.0-11.0)
[2017-11-05 05:37] LABS: Alanine Aminotransferase 448 U/L (12-78); Albumin 1.8 g/dL (3.4-5.0); Anion Gap 7 meq/L (5-15); Aspartate Aminotransferase 300 U/L (15-37); Blood Urea Nitrogen 11 mg/dL (7-18); Calcium 7.7 mg/dL (8.5-10.1); Carbon Dioxide 29.5 meq/L (21.0-32.0); Chloride 109 meq/L (98-107); Glucose,Random 80 mg/dL (74-106); Potassium 3.1 meq/L (3.5-5.1); Sodium 145 meq/L (136-145)
[2017-11-05 05:45] LABS: Alkaline Phosphatase 74 U/L (45-117); Glomerular Filtration Rate Greater Than 89 mL/min (>89); Total Protein 5.6 g/dL (6.4-8.2)
--- NOTE | 2017-11-05 08:37 | P.PNGS ---
Subjective Interval history: Visiting with friends; daughter at bedside Physical Exam Vital signs: Vital Signs 11/04/17 10:00 11/04/17 14:00 11/04/17 16:00 Temperature 98.4 F Pulse Rate 65 65 70 Respiratory Rate 18 Blood Pressure 174/81 H Pulse Oximetry 95 11/04/17 18:00 11/04/17 20:00 11/04/17 21:20 Temperature 98.1 F Pulse Rate 65 66 Respiratory Rate 19 Blood Pressure 188/77 H Pulse Oximetry 97 95 11/05/17 00:00 11/05/17 04:00 Temperature 98.2 F 97.6 F Pulse Rate 77 65 Respiratory Rate 18 19 Blood Pressure 174/81 H 167/80 H Pulse Oximetry 97 95 Intake & Output 11/04/17 11/05/17 11/05/17 18:59 06:59 18:59 Intake Total 1155 / 1155 1565 / 1565 Output Total 1525 / 1525 400 / 400 Balance -370 / -370 1165 / 1165 Weight 97.4 kg Intake: IV 915 / 915 965 / 965 Zosyn 4.5 GM Premix 4.5 gm In 200 / 200 200 / 200 100 ml @ 200 mls/hr IV.SIG Q6H ADITYA Rx#:[id number] KCl 20 mEq Premix Inj 20 meq In 200 / 200 100 ml @ 50 mls/hr IV.SIG Q2H PRN Rx#:[id number] Vancomycin Inj 1,500 MG In NS 515 / 515 515 / 515 Inj 500 ML @ 250 mls/hr IV.SIG Q12H ADITYA Rx#:[id number] Oral 240 / 240 600 / 600 Output: Urine 1150 / 1150 300 / 300 Emesis 375 / 375 Gastric Drainage 100 / 100 Left Nare Nasogastric Tube 100 / 100 Other: # Voids 5 5 Date of Last Bowel Movement 11/04/17 11/04/17 # Bowel Movements 6 5 Narrative: Alert and awake Cardio Resp: CTAB Abd: mildly distended; lap sites c/d/i; NGT with bilious drainage LEFT forearm swelling improved - Urinary Catheter Management Indwelling Urethral Catheter Cath placed during this visit: yes, but has since been removed by the nurse Urethral indwelling: Yes Reason for continuing: Decision to DC catheter Insertion date: 10/29/17 Insertion time: 07:17 Removal date: 11/03/17 Removal time: 10:00 Assessment and Plan - Assessment (1) Cholecystitis, acute with cholelithiasis Code(s): K80.00 - Calculus of gallbladder with acute cholecystitis without obstruction Status: Acute Plan: 72 year old male s/p lap bing for perforated gallbladder -Continue NGT to LIWS; still with high output -Clamp NGT to ambulate in hallways; patient needs walker -Recheck lipase---pending -Added IVF -Okay for ice and popsicles -MRCP negative for CBD stone -PT (2) Sepsis Code(s): A41.9 - Sepsis, unspecified organism Status: Acute (3) SVT (supraventricular tachycardia) Code(s): I47.1 - Supraventricular tachycardia Status: Acute (4) KENNY (acute kidney injury) Code(s): N17.9 - Acute kidney failure, unspecified Status: Acute (5) Pancreatitis due to common bile duct stone Code(s): K85.90 - Acute pancreatitis without necrosis or infection, unspecified ; K80.50 - Calculus of bile duct without cholangitis or cholecystitis without obstruction Status: Acute (1) Cholecystitis, acute with cholelithiasis Qualifiers: Cholelithiasis location: gallbladder Biliary obstruction: without biliary obstruction Qualified Code(s): K80.00 - Calculus of gallbladder with acute cholecystitis without obstruction (2) Sepsis Qualifiers: Sepsis type: sepsis due to unspecified organism Qualified Code(s): A41.9 - Sepsis, unspecified organism
[2017-11-05] MEDS: Lisinopril 10 MG Tablet PO SCH (09:51)
[2017-11-05] MEDS: Famotidine PF Inj 20 MG/2 ML Vial IV.PUSH SCH ×2 (09:51→22:40)
[2017-11-05] MEDS: Amiodarone 200 MG Tablet PO SCH ×2 (09:51→22:37)
[2017-11-05] MEDS ORDERED: Diatrizoate Meglum/Diatrizoate Sod Liq 120 ML Bottle (for RAD diag) NG/OG ONE (11:11)
[2017-11-05] MEDS: Potassium Chloride Inj 10 MEQ in Dextrose 5% in Water Inj 1,000 ML IV.CONT SCH ×2 (13:06)
--- NOTE | 2017-11-05 14:30 | FL ---
EXAM DATE: 11/05/2017 2:23 PM EDT AGE/SEX: 72 years / Male INDICATIONS: Evaluate for an ileus. Vomiting. Abdominal pain. CLINICAL DATA: This is the patient's subsequent encounter. Patient reports that signs and symptoms h ave been present for 3 days and indicates a pain score of 4/10. MEDICAL/SURGICAL HISTORY: . Arthritis. Gastroesophageal reflux disease. Hypertension. Hiatal he rnia. High cholesterol. Gastric ulcer. Spinal stenosis. Tendonitis. Laminectomy. Lumbar fusion. Bilat eral knee replacement. Foot surgery. Sinus surgery. Wrist surgery. . Fusion of lumbar spine. Hernia repair. [place] [facility] [place] [facility] [place]. . FLUORO TIME: 0 IMAGE COUNT: 6 CONTRAST: Gastrografin. FINDINGS: Preliminary film demonstrates NG tube in the stomach, posterior jailene and lateral plate and screw fixat ion of the lumbar spine from L2 through S1. There are dilated gas-filled loops of small bowel identif ied as well as some air in nondilated large bowel. The stomach is grossly unremarkable. Examination of the small bowel demonstrates no intraluminal filling defects. There is contrast noted within nondilated large bowel at the 2 hour krystin with contrast seen extending into the rectosigmoid colon. CONCLUSION: Contrast is present within the rectosigmoid by the 2 hour krystin. Electronically signed by: Sohail Morgan MD 11/05/2017 2:29 PM EDT
--- NOTE | 2017-11-05 17:16 | P.PN ---
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 It is reached a crescendo pattern where he is buckled over and discomfort and presents to the [facility] emergency department where CAT scan of the abdomen reveals a markedly inflamed gallbladder with surrounding phlegmon/edema. A thoracic aortogram obtained at the same time to rule out dissection is normal. In the emergency department he developed a supraventricular tachycardia in the 160s. This was treated initially with Cardizem at [place] and I have started to load him with beta- brown for prevention of recurrence. Additional immediate problems include acute kidney injury with a creatinine 1.8 related to his inability to keep food down and some vomiting earlier. He denies wheezing or shortness of breath but his CAT scan reveals some minor emphysema. The lung parenchyma is generally sound for his age. He has been loaded with antibiotics and hydrated with isotonic crystalloid. Heart rate is now well controlled. He is medically clear for surgery. His low-level sepsis and dehydration obviously increases risk for surgery. 10/30: Gangrenous gallbladder removed laparoscopically last evening. Patient's general status is much improved today. Renal function much better after aggressive hydration and urine output improved. Patient is alert and conversant. Pain control with LOCKSTITCH LINING SETTER appears good. 10/31: Patient is developed vomiting and is unable to keep his oral heart medication down. I will discuss possible NG tube placement with the surgery service. He developed atrial fibrillation with rapid ventricular response last evening and required transfer back down to the ICU. Cardizem is on back order so esmolol infusion was used to heart rate. Following discussion with Dr. Valles , it appears to me the safest method to control his heart rate and add amiodarone for rhythm conversion is to replace the esmolol with digoxin now. 11/01: Patient remains in sinus rhythm and is normotensive. Nasogastric output approaching 3 L. Ileus is expected following diffuse peritonitis. He feels much better with the nasogastric tube down. We will follow his electrolytes and fluid balance closely particularly in the context of his supraventricular arrhythmias. 11/02: Patient remains in sinus rhythm with mild hypertension. Will double beta -brown and add lisinopril daily. Nasogastric tube output remains copious, averaging 1400 per shift. He clearly has an ileus at this point and will just need to ride it out. He is developed a marked cellulitis in his left antecubital fossa related to an IV site. This may be from potassium replacement irritation. I suspect I will have to place a central line in him for better access and probable institution of TPN. 11/03: still in sinus rhythm. tolerating sips of clears. clinically improving. denies complaints. needs to get OOB and ambulating. Hospitalist Notes: 11/04: Seen in his bedroom in the presence of nurse, already seen by General Surgery, Ileus resolved, was removed the SONIA drain POD #5, Laparoscopic cholecystectomy perforated Gallbladder, continue with NG tube in place, as per nurse the patient started vomiting and had to be placed new NG tube, has probable CGD stone and was asked for MRCP and may need ERCP, needed for Left Upper extremity US due to edema. 11/05: Discussed with patient and nurse, also Doctor Krystin Lance in to see the patient, he had more than 2000 ml of Gastric output during the night will need to follow I and O and replace fluids, at this time continue IV fluids started by General Surgery, replacing electrolytes and following. no nausea, vomit or diarrhea, has NG tube at low suction. Physical Exam Vital signs: Vital Signs 11/04/17 18:00 11/04/17 20:00 11/04/17 21:20 Temperature 98.1 F Pulse Rate 65 66 Respiratory Rate 19 Blood Pressure 188/77 H Pulse Oximetry 97 95 11/05/17 00:00 11/05/17 04:00 11/05/17 08:00 Temperature 98.2 F 97.6 F 98.2 F Pulse Rate 77 65 67 Respiratory Rate 18 19 18 Blood Pressure 174/81 H 167/80 H 185/88 H Pulse Oximetry 97 95 93 L Intake & Output 11/04/17 11/05/17 11/05/17 18:59 06:59 18:59 Intake Total 1155 / 1155 1565 / 1565 Output Total 1525 / 1525 400 / 400 Balance -370 / -370 1165 / 1165 Weight 97.4 kg Intake: IV 915 / 915 965 / 965 Zosyn 4.5 GM Premix 4.5 gm In 200 / 200 200 / 200 100 ml @ 200 mls/hr IV.SIG Q6H ADITYA Rx#:[id number] KCl 20 mEq Premix Inj 20 meq In 200 / 200 100 ml @ 50 mls/hr IV.SIG Q2H PRN Rx#:[id number] Vancomycin Inj 1,500 MG In NS 515 / 515 515 / 515 Inj 500 ML @ 250 mls/hr IV.SIG Q12H ADITYA Rx#:[id number] Oral 240 / 240 600 / 600 Output: Urine 1150 / 1150 300 / 300 Emesis 375 / 375 Gastric Drainage 100 / 100 Left Nare Nasogastric Tube 100 / 100 Other: # Voids 5 5 Date of Last Bowel Movement 11/04/17 11/04/17 # Bowel Movements 6 5 Narrative: General: No acute distress, NG in place. Head: Atraumatic, normal Neck: Supple airway widely patent no obstructive noises. Lungs: equal chest rise, nc o2. comfortable respiratory pattern. Heart: normal rate of 62, regular rhythm. sinus. no JVD. Abdomen: soft, minimally tender, nondistended. No peritoneal irritation. Bowel sounds few. Extremities: Warm, well-perfused. Cellulitis left antecubital fossa. trace edema. Neuro: He is alert, conversant, oriented 3 and appropriate. - Urinary Catheter Management Indwelling Urethral Catheter Cath placed during this visit: yes, but has since been removed by the nurse Urethral indwelling: Yes Reason for continuing: Decision to DC catheter Insertion date: 10/29/17 Insertion time: 07:17 Removal date: 11/03/17 Removal time: 10:00 Results - Labs CBC & Chem 7: 11/05/17 04:52 11/05/17 04:52 Laboratory Results - last 24 hr 11/05/17 11/05/17 11/05/17 04:52 04:52 04:52 WBC 11.9 H RBC 3.14 L Hgb 9.4 L Hct 28.1 L MCV 89.3 MCH 30.1 MCHC 33.7 RDW 16.2 Plt Count 346 MPV 9.0 Sodium 145 Potassium 3.1 L Chloride 109 H Carbon Dioxide 29.5 Anion Gap 7 BUN 11 Creatinine 0.78 Estimated GFR Greater than 89 Random Glucose 80 Calcium 7.7 L Total Bilirubin 1.0 AST 300 H ALT 448 H Alkaline Phosphatase 74 Total Protein 5.6 L Albumin 1.8 L Lipase 2372 H - Imaging Impressions Small Bowel X-Ray 11/05/17 00:00 Examination of the small bowel demonstrates no intraluminal filling defects. There is contrast noted within nondilated large bowel at the 2 hour krystin with contrast seen extending into the rectosigmoid colon. CONCLUSION: Contrast is present within the rectosigmoid by the 2 hour krystin. - Procedures Laparoscopic cholecystectomy October 29, 2017 Assessment and Plan - Plan This is a pleasant 72 y/o Male with gangrenous Cholecystitis status post Laparoscopic cholecystectomy 1. Gangrenous Cholecystitis status post Laparoscopic Cholecystectomy improving as per General Surgery was on Empiric IV antibiotics Zosyn and were discontinued, toady needed for new NG tube placement General surgery thinking in residual CBD stone asked for MRCP and may need ERCP. found no biliary obstruction small bowel distention, today Small Bowel follow through did not demonstrated pathology. 2. Post Operative Ileus resolving had the need for NG tube placement. 3. New Onset of Atrial Fibrillation resolved, removed Amiodarone drip continue amiodarone 400 mg BID 4. Acute protein Calorie Malnutrition Moderate 5. Physical Deconditioning continue Physical Therapy 6. Cellulitis of the left arm on Vancomycin. plan for seven days of treatment. asked for US today had Left cephalic vein nonocclusive thrombus. 7. Hypokalemia replaced today and follow in am tomorrow. DVT prophylaxis with Heparin. Encourage activity. Overall impression: This elderly gentleman presented clearly septic from a gangrenous gallbladder with surrounding phlegmon and generalized peritonitis. He had lactic acidosis and acute kidney injury which responded to aggressive fluid resuscitation and broad antibiotic coverage. His supraventricular tachycardia/paroxysmal atrial fibrillation has responded to beta-brown and amiodarone therapy. Following removal of his gangrenous gallbladder on October 29 his renal function was much improved. 2 days ago he converted back to atrial fibrillation with rapid ventricular response after episodes of vomiting and inability to keep his oral cardiac medications down. He is hemodynamically unstable now and critically ill. Fluid and electrolyte losses related to large gastric output are complicating arrhythmia control. Code Status: Full code Discussed Condition With: Patient, Nurse, MDR, Doctor Krystin Lance early in am Discharge Planning: once cleared by specialists
[2017-11-05] MEDS: Sod Chloride 0.9% Inj 1,000 ML IV.CONT SCH ×2 (17:51→22:42)
[2017-11-05] MEDS: Potassium Chlor 20 mEq Premix 20 MEQ/100 ML PIGGYBACK IV.SIG SCH (22:33)
[2017-11-06] MEDS: Metoprolol Tartrate 50 MG Tablet PO SCH ×4 (00:49→17:45)
[2017-11-06] MEDS: Heparin - SQ 10,000 UNITS/ML Vial SQ SCH ×3 (00:50→15:09)
[2017-11-06] MEDS: Potassium Chlor 20 mEq Premix 20 MEQ/100 ML PIGGYBACK IV.SIG SCH (01:03)
[2017-11-06] MEDS: Potassium Chloride Inj 10 MEQ in Dextrose 5% in Water Inj 1,000 ML IV.CONT SCH ×4 (01:08→15:08)
--- NOTE | 2017-11-06 08:13 | P.PNGS ---
Subjective Patient reports: feels better, pain is less, bowel movement, diarrhea, afebrile Physical Exam Vital signs: Vital Signs 11/05/17 20:00 11/06/17 00:00 11/06/17 04:00 Temperature 97.7 F 98.0 F 97.6 F Pulse Rate 66 65 70 Respiratory Rate 16 16 18 Blood Pressure 174/83 H 175/85 H 168/74 H Pulse Oximetry 93 L 94 L 93 L Intake & Output 11/05/17 11/06/17 11/06/17 18:59 06:59 18:59 Intake Total 1000 / 1000 300 / 300 Output Total 800 / 800 Balance 200 / 200 300 / 300 Weight 92.1 kg Intake: IV 300 / 300 KCl Inj 10 MEQ In D5W Inj 1,000 0 / 0 ML @ 100 mls/hr IV.CONT . Q10H3M ADITYA Rx#:[id number] KCl 20 mEq Premix Inj 20 meq In 200 / 200 100 ml @ 50 mls/hr IV.SIG Q2H ADITYA Rx#:[id number] Oral 1000 / 1000 Output: Urine 600 / 600 Gastric Drainage 200 / 200 Left Nare Nasogastric Tube 200 / 200 Other: # Voids 3 Date of Last Bowel Movement 11/05/17 11/05/17 # Bowel Movements 13 1 - Routine Abdominal Exam Present: soft, wound Comments: less distended, bs present, wounds clean - Urinary Catheter Management Indwelling Urethral Catheter Cath placed during this visit: yes, but has since been removed by the nurse Urethral indwelling: Yes Reason for continuing: Decision to DC catheter Insertion date: 10/29/17 Insertion time: 07:17 Removal date: 11/03/17 Removal time: 10:00 Assessment and Plan - Assessment (1) Cholecystitis, acute with cholelithiasis Code(s): K80.00 - Calculus of gallbladder with acute cholecystitis without obstruction Status: Acute Plan: 72 year old male s/p lap bing for perforated gallbladder -Continue NGT to LIWS; still with high output -Clamp NGT to ambulate in hallways; patient needs walker -Recheck lipase---pending -Added IVF -Okay for ice and popsicles -MRCP negative for CBD stone -PT (2) Sepsis Code(s): A41.9 - Sepsis, unspecified organism Status: Acute (3) SVT (supraventricular tachycardia) Code(s): I47.1 - Supraventricular tachycardia Status: Acute (4) KENNY (acute kidney injury) Code(s): N17.9 - Acute kidney failure, unspecified Status: Acute (5) Pancreatitis due to common bile duct stone Code(s): K85.90 - Acute pancreatitis without necrosis or infection, unspecified ; K80.50 - Calculus of bile duct without cholangitis or cholecystitis without obstruction Status: Acute - Plan NG removed SBFT shows contrast in colon full liquid diet PT OOB decrease IVF (1) Cholecystitis, acute with cholelithiasis Qualifiers: Cholelithiasis location: gallbladder Biliary obstruction: without biliary obstruction Qualified Code(s): K80.00 - Calculus of gallbladder with acute cholecystitis without obstruction (2) Sepsis Qualifiers: Sepsis type: sepsis due to unspecified organism Qualified Code(s): A41.9 - Sepsis, unspecified organism
[2017-11-06] MEDS: Amiodarone 200 MG Tablet PO SCH ×2 (09:04→20:48)
[2017-11-06] MEDS: Lisinopril 10 MG Tablet PO SCH (09:06)
[2017-11-06] MEDS: Sod Chloride 0.9% Inj 1,000 ML IV.CONT SCH ×2 (09:24→19:12)
[2017-11-06] MEDS: Famotidine PF Inj 20 MG/2 ML Vial IV.PUSH SCH ×2 (09:31→20:48)
[2017-11-06] MEDS ORDERED: Pharmacy Ordered Lab Info OTHER ONE (11:45)
--- NOTE | 2017-11-06 13:45 | P.PN ---
Subjective Interval history: client experience specialist Notes: 10/29: This otherwise healthy 72-year-old active gentleman has had nagging abdominal pain for about a week. It is reached a crescendo pattern where he is buckled over and discomfort and presents to the [facility] emergency department where CAT scan of the abdomen reveals a markedly inflamed gallbladder with surrounding phlegmon/edema. A thoracic aortogram obtained at the same time to rule out dissection is normal. In the emergency department he developed a supraventricular tachycardia in the 160s. This was treated initially with Cardizem at [place] and I have started to load him with beta- brown for prevention of recurrence. Additional immediate problems include acute kidney injury with a creatinine 1.8 related to his inability to keep food down and some vomiting earlier. He denies wheezing or shortness of breath but his CAT scan reveals some minor emphysema. The lung parenchyma is generally sound for his age. He has been loaded with antibiotics and hydrated with isotonic crystalloid. Heart rate is now well controlled. He is medically clear for surgery. His low-level sepsis and dehydration obviously increases risk for surgery. 10/30: Gangrenous gallbladder removed laparoscopically last evening. Patient's general status is much improved today. Renal function much better after aggressive hydration and urine output improved. Patient is alert and conversant. Pain control with COOK BOX FILLER appears good. 10/31: Patient is developed vomiting and is unable to keep his oral heart medication down. I will discuss possible NG tube placement with the surgery service. He developed atrial fibrillation with rapid ventricular response last evening and required transfer back down to the ICU. Cardizem is on back order so esmolol infusion was used to heart rate. Following discussion with Dr. Valles , it appears to me the safest method to control his heart rate and add amiodarone for rhythm conversion is to replace the esmolol with digoxin now. 11/01: Patient remains in sinus rhythm and is normotensive. Nasogastric output approaching 3 L. Ileus is expected following diffuse peritonitis. He feels much better with the nasogastric tube down. We will follow his electrolytes and fluid balance closely particularly in the context of his supraventricular arrhythmias. 11/02: Patient remains in sinus rhythm with mild hypertension. Will double beta -brown and add lisinopril daily. Nasogastric tube output remains copious, averaging 1400 per shift. He clearly has an ileus at this point and will just need to ride it out. He is developed a marked cellulitis in his left antecubital fossa related to an IV site. This may be from potassium replacement irritation. I suspect I will have to place a central line in him for better access and probable institution of TPN. 11/03: still in sinus rhythm. tolerating sips of clears. clinically improving. denies complaints. needs to get OOB and ambulating. Hospitalist Notes: 11/04: Seen in his bedroom in the presence of nurse, already seen by General Surgery, Ileus resolved, was removed the SONIA drain POD #5, Laparoscopic cholecystectomy perforated Gallbladder, continue with NG tube in place, as per nurse the patient started vomiting and had to be placed new NG tube, has probable CGD stone and was asked for MRCP and may need ERCP, needed for Left Upper extremity US due to edema. 11/05: Discussed with patient and nurse, also Doctor Krystin Lance in to see the patient, he had more than 2000 ml of Gastric output during the night will need to follow I and O and replace fluids, at this time continue IV fluids started by General Surgery, replacing electrolytes and following. has NG tube at low suction. 11/06: Stable in his bedroom, no nausea, vomit or diarrhea, NG removed, in sitting position, no complaint, discussed with nurse Miss Gilbert Physical Exam Vital signs: Vital Signs 11/05/17 20:00 11/06/17 00:00 11/06/17 04:00 Temperature 97.7 F 98.0 F 97.6 F Pulse Rate 66 65 70 Respiratory Rate 16 16 18 Blood Pressure 174/83 H 175/85 H 168/74 H Pulse Oximetry 93 L 94 L 93 L Intake & Output 11/05/17 11/06/17 11/06/17 18:59 06:59 18:59 Intake Total 1000 / 1000 300 / 300 Output Total 800 / 800 Balance 200 / 200 300 / 300 Weight 92.1 kg Intake: IV 300 / 300 KCl Inj 10 MEQ In D5W Inj 1,000 0 / 0 ML @ 100 mls/hr IV.CONT . Q10H3M ADITYA Rx#:[id number] KCl 20 mEq Premix Inj 20 meq In 200 / 200 100 ml @ 50 mls/hr IV.SIG Q2H ADITYA Rx#:[id number] Oral 1000 / 1000 Output: Urine 600 / 600 Gastric Drainage 200 / 200 Left Nare Nasogastric Tube 200 / 200 Other: # Voids 3 Date of Last Bowel Movement 11/05/17 11/05/17 11/06/17 # Bowel Movements 13 1 Narrative: General: No acute distress. Head: Atraumatic, normal Neck: Supple airway widely patent no obstructive noises. Lungs: equal chest rise, nc o2. comfortable respiratory pattern. Heart: normal rate of 62, regular rhythm. sinus. no JVD. Abdomen: soft, minimally tender, nondistended. No peritoneal irritation. Bowel sounds few. Extremities: Warm, well-perfused. better left arm. Neuro: He is alert, conversant, oriented 3 and appropriate. - Urinary Catheter Management Indwelling Urethral Catheter Cath placed during this visit: yes, but has since been removed by the nurse Urethral indwelling: Yes Reason for continuing: Decision to DC catheter Insertion date: 10/29/17 Insertion time: 07:17 Removal date: 11/03/17 Removal time: 10:00 Results - Labs CBC & Chem 7: 11/05/17 04:52 11/05/17 04:52 - Imaging Impressions Small Bowel X-Ray 11/05/17 00:00 Examination of the small bowel demonstrates no intraluminal filling defects. There is contrast noted within nondilated large bowel at the 2 hour krystin with contrast seen extending into the rectosigmoid colon. CONCLUSION: Contrast is present within the rectosigmoid by the 2 hour krystin. - Procedures Laparoscopic cholecystectomy October 29, 2017 Assessment and Plan - Plan This is a pleasant 72 y/o Male with gangrenous Cholecystitis status post Laparoscopic cholecystectomy 1. Gangrenous Cholecystitis status post Laparoscopic Cholecystectomy improving as per General Surgery was on Empiric IV antibiotics Zosyn and were discontinued, toady needed for new NG tube placement General surgery thinking in residual CBD stone asked for MRCP and may need ERCP. found no biliary obstruction small bowel distention, today Small Bowel follow through did not demonstrated pathology. NG removed by General Surgery, started on Liquid diet. 2. Post Operative Ileus resolved 3. New Onset of Atrial Fibrillation resolved, removed Amiodarone drip continue amiodarone 400 mg BID 4. Acute protein Calorie Malnutrition Moderate now able to eat. start protein boosts. 5. Physical Deconditioning continue Physical Therapy 6. Cellulitis of the left arm treated with Vancomycin. 7. Hypokalemia replaced today will follow with new BMP and Mag level now. 8. Hypertension uncontrolled increased Lisinopril to 20 mg BID and following. DVT prophylaxis with Heparin. Encourage activity. Overall impression: This elderly gentleman presented clearly septic from a gangrenous gallbladder with surrounding phlegmon and generalized peritonitis. He had lactic acidosis and acute kidney injury which responded to aggressive fluid resuscitation and broad antibiotic coverage. His supraventricular tachycardia/paroxysmal atrial fibrillation has responded to beta-brown and amiodarone therapy. Following removal of his gangrenous gallbladder on October 29 his renal function was much improved. 2 days ago he converted back to atrial fibrillation with rapid ventricular response after episodes of vomiting and inability to keep his oral cardiac medications down. He is hemodynamically unstable now and critically ill. Fluid and electrolyte losses related to large gastric output are complicating arrhythmia control. Code Status: Full Code. Discussed Condition With: Patient, Nurse Miss Gilbert and relative in the room. Discharge Planning: once cleared by specialists
[2017-11-06] MEDS ORDERED: Lisinopril 10 MG Tablet PO ONE (15:00)
[2017-11-06 16:01] LABS: Anion Gap 9 meq/L (5-15); Blood Urea Nitrogen 8 mg/dL (7-18); Calcium 7.7 mg/dL (8.5-10.1); Carbon Dioxide 26.9 meq/L (21.0-32.0); Chloride 106 meq/L (98-107); Glomerular Filtration Rate Greater Than 89 mL/min (>89); Glucose,Random 107 mg/dL (74-106); Sodium 142 meq/L (136-145)
[2017-11-06 16:04] LABS: Potassium 2.9 meq/L (3.5-5.1)
[2017-11-06] MEDS: Lisinopril 20 MG Tablet PO SCH (20:49)
[2017-11-07] MEDS: Metoprolol Tartrate 50 MG Tablet PO SCH ×4 (01:40→17:21)
[2017-11-07] MEDS: Heparin - SQ 10,000 UNITS/ML Vial SQ SCH ×3 (01:40→15:28)
[2017-11-07 05:44] LABS: Baso % (Auto) 0.2 % (0.0-2.0); Eos # (Auto) 0.5 th/mm3 (0.0-0.4); Eos % (Auto) 3.3 % (0.0-4.0); Hematocrit 29.2 % (39.0-51.0); Hemoglobin 9.8 gm/dL (13.0-17.0); Lymph % (Auto) 6.8 % (9.0-44.0); Mean Corpuscular HGB Conc 33.7 % (32.0-36.0); Mean Corpuscular Hemoglobin 29.5 pg (27.0-34.0); Mean Corpuscular Volume 87.7 fL (80.0-100.0); Mean Platelet Volume 9.3 fL (7.0-11.0); Mono # (Auto) 1.1 th/mm3 (0.0-0.9); Mono % (Auto) 7.4 % (0.0-8.0); Neut # (Auto) 12.4 th/mm3 (1.8-7.7); Neut % (Auto) 82.3 % (16.0-70.0); Platelet Count 444 th/mm3 (150-450); Red Blood Count 3.33 mil/mm3 (4.50-5.90); White Blood Count 15.1 th/mm3 (4.0-11.0)
[2017-11-07 06:12] LABS: Albumin 2.1 g/dL (3.4-5.0); Anion Gap 10 meq/L (5-15); Aspartate Aminotransferase 166 U/L (15-37); Blood Urea Nitrogen 6 mg/dL (7-18); Carbon Dioxide 26.7 meq/L (21.0-32.0); Chloride 106 meq/L (98-107); Glomerular Filtration Rate Greater Than 89 mL/min (>89); Glucose,Random 88 mg/dL (74-106); Sodium 143 meq/L (136-145)
[2017-11-07 06:14] LABS: Alanine Aminotransferase 405 U/L (12-78); Alkaline Phosphatase 81 U/L (45-117); Lipase 1170 U/L (73-393); Total Protein 5.8 g/dL (6.4-8.2)
[2017-11-07] MEDS: Sod Chloride 0.9% Inj 1,000 ML IV.CONT SCH ×2 (06:26→14:54)
[2017-11-07] MEDS: Famotidine PF Inj 20 MG/2 ML Vial IV.PUSH SCH (08:13)
[2017-11-07] MEDS: Amiodarone 200 MG Tablet PO SCH (08:55)
[2017-11-07] MEDS: Lisinopril 20 MG Tablet PO SCH (08:57)
--- NOTE | 2017-11-07 12:14 | P.DS ---
Date of admission: 10/29/17 07:33 Primary care physician: [facility] Brief History from admission: This otherwise healthy 72-year-old active gentleman has had nagging abdominal pain for about a week. It is reached a crescendo pattern where he is buckled over and discomfort and presents to the [facility] emergency department where CAT scan of the abdomen reveals a markedly inflamed gallbladder with surrounding phlegmon/edema. A thoracic aortogram obtained at the same time to rule out dissection is normal. In the emergency department he developed a supraventricular tachycardia in the 160s. This was treated initially with Cardizem at [place] and I have started to load him with beta-brown for prevention of recurrence. Additional immediate problems include acute kidney injury with a creatinine 1.8 related to his inability to keep food down and some vomiting earlier. He denies wheezing or shortness of breath but his CAT scan reveals some minor emphysema. The lung parenchyma is generally sound for his age. He has been loaded with antibiotics and hydrated with isotonic crystalloid. Heart rate is now well controlled. He is medically clear for surgery. His low-level sepsis and dehydration obviously increases risk for surgery. DS: Diagnosis - Discharge Diagnosis (1) KENNY (acute kidney injury) Status: Acute (2) Ascending cholangitis Status: Acute (3) Cholecystitis, acute with cholelithiasis Status: Acute DS: Medications - Discharge Medications Prescriptions: amiodarone 400 mg PO Q12HR #60 tab metoprolol tartrate 50 mg PO Q6HR #120 tab DS: Summary Hospital Course: General: No acute distress. Head: Atraumatic, normal Neck: Supple airway widely patent no obstructive noises. Lungs: equal chest rise, nc o2. comfortable respiratory pattern. Heart: normal rate of 62, regular rhythm. sinus. no JVD. Abdomen: soft, minimally tender, nondistended. No peritoneal irritation. Bowel sounds few. Extremities: Warm, well-perfused. better left arm. Neuro: He is alert, conversant, oriented 3 and appropriate. This is a pleasant 72 y/o Male with gangrenous Cholecystitis status post Laparoscopic cholecystectomy 1. Gangrenous Cholecystitis status post Laparoscopic Cholecystectomy improving as per General Surgery was on Empiric IV antibiotics Zosyn and were discontinued, toady needed for new NG tube placement General surgery thinking in residual CBD stone asked for MRCP and may need ERCP. found no biliary obstruction small bowel distention, today Small Bowel follow through did not demonstrated pathology. NG removed by General Surgery, diet was advanced per surgeon. Patient imprpved significantly. Cleared by surgon for DC. Patient is ambulTING IN THE [place] . fEELS COMFORTABLE TO GO HOME. dC home with home health. 2. Post Operative Ileus resolved 3. New Onset of Atrial Fibrillation resolved, removed Amiodarone drip continue amiodarone 400 mg BID. Stable. 4. Acute protein Calorie Malnutrition Moderate now able to eat. start protein boosts. 5. Physical Deconditioning continue Physical Therapy. DC home with home health 6. Cellulitis of the left arm treated with Vancomycin. 7. Hypokalemia replaced today will follow with new BMP and Mag level now. 8. Hypertension uncontrolled increased Lisinopril to 20 mg BID and following. 9. Cough will do CXR. Encouraged IS and acapella DVT prophylaxis with Heparin. Encourage activity. Overall impression: This elderly gentleman presented clearly septic from a gangrenous gallbladder with surrounding phlegmon and generalized peritonitis. He had lactic acidosis and acute kidney injury which responded to aggressive fluid resuscitation and broad antibiotic coverage. His supraventricular tachycardia/paroxysmal atrial fibrillation has responded to beta-brown and amiodarone therapy. Following removal of his gangrenous gallbladder on October 29 his renal function was much improved. He converted back to atrial fibrillation with rapid ventricular response after episodes of vomiting and inability to keep his oral cardiac medications down. He was hemodynamically unstable critically ill and was managed in ICU. Fluid and electrolyte losses related to large gastric output are complicating arrhythmia control. Patient however improved significantly had surgery lap bing by Dr Ordaz . Patient is ambulating without any problems after surgery. Eating well. Had a BM. Cleared by surgeon for DC. Patient to follow up as OP with PCP and consultants. He is DC home with home health in stable condition - Time Spent with Patient Total time spent providing and/or coordinating discharge services: Greater than 30 minutes - Quality: VTE Deep Vein Thrombosis/Pulmonary Embolism Present on Admission: No Exam Vital signs: Vital Signs 11/06/17 20:00 11/07/17 00:00 11/07/17 04:00 Temperature 98.7 F 97.8 F 98.0 F Pulse Rate 64 66 68 Respiratory Rate 17 18 17 Blood Pressure 152/72 H 168/75 H 150/76 H Pulse Oximetry 96 96 95 11/07/17 08:00 11/07/17 11:29 Temperature 99.3 F 97.8 F Pulse Rate 71 66 Respiratory Rate 16 15 Blood Pressure 165/84 H 147/94 H Pulse Oximetry 95 97 Intake & Output 11/06/17 11/07/17 11/07/17 18:59 06:59 18:59 Intake Total 2004 700 / 700 Output Total 100 / 100 Balance 1905 / 1905 700 / 700 Weight 92.6 kg Intake: IV 2004 KCl Inj 10 MEQ In D5W Inj 1,000 1005 / 1005 ML @ 50 mls/hr IV.CONT .Q20H6M ADITYA Rx#:[id number] NS Inj 1,000 ML @ 100 mls/hr IV 1000 / 1000 .CONT .Q10H ADITYA Rx#:[id number] Oral 700 / 700 Output: Urine 100 / 100 Other: # Voids 3 Date of Last Bowel Movement 11/06/17 11/07/17 # Bowel Movements 2 Results Procedures completed during hospitalization: Laparoscopic cholecystectomy October 29, 2017 Completed studies during hospitalization: Pending at discharge 10/29/17 08:13 Surgical [PTH] Routine Labs on day of discharge: Labs from last 24 hours 11/07/17 11/07/17 11/06/17 03:50 03:50 14:53 WBC 15.1 H RBC 3.33 L Hgb 9.8 L Hct 29.2 L MCV 87.7 MCH 29.5 MCHC 33.7 RDW 16.0 Plt Count 444 MPV 9.3 Neut % (Auto) 82.3 H Lymph % (Auto) 6.8 L [place] % (Auto) 7.4 Eos % (Auto) 3.3 Baso % (Auto) 0.2 Neut # (Auto) 12.4 H Lymph # (Auto) 1.0 [place] # (Auto) 1.1 H Eos # (Auto) 0.5 H Baso # (Auto) 0.0 WBC Differential . Differential Comment Auto diff final Sodium 143 Potassium 3.0 L Chloride 106 Carbon Dioxide 26.7 Anion Gap 10 BUN 6 L Creatinine 0.80 Estimated GFR Greater than 89 Random Glucose 88 Calcium 8.0 L Magnesium 2.0 Total Bilirubin 0.5 AST 166 H ALT 405 H Alkaline Phosphatase 81 Total Protein 5.8 L Albumin 2.1 L Lipase 1170 H 11/06/17 14:53 WBC RBC Hgb Hct MCV MCH MCHC RDW Plt Count MPV Neut % (Auto) Lymph % (Auto) [place] % (Auto) Eos % (Auto) Baso % (Auto) Neut # (Auto) Lymph # (Auto) [place] # (Auto) Eos # (Auto) Baso # (Auto) WBC Differential Differential Comment Sodium 142 Potassium 2.9 L* Chloride 106 Carbon Dioxide 26.9 Anion Gap 9 BUN 8 Creatinine 0.81 Estimated GFR Greater than 89 Random Glucose 107 H Calcium 7.7 L Magnesium Total Bilirubin AST ALT Alkaline Phosphatase Total Protein Albumin Lipase - Impressions ITS Impressions Chest X-Ray 10/29/17 05:46 CONCLUSION: Negative examination. Thoracic Aorta CT 10/29/17 06:03 CONCLUSION: 1. Acute cholecystitis with gallbladder wall thickening, pericholecystic inflammatory and edematous changes and numerous gallstones. 2. Negative for abdominal or thoracic aortic aneurysm or dissection. 3. Mild ascites. Previous fusion lumbar spine. Abdomen X-Ray 11/04/17 00:00 CONCLUSION: No significant change small bowel distention. Nasogastric tube tip is at the distal stomach. Stomach is decompressed. Cholangiopancreatography MRI 11/04/17 00:00 CONCLUSION: 1. No evidence for biliary obstruction. 2. Dilated small bowel. 3. Ascites. Venous Doppler Study 11/04/17 00:00 CONCLUSION: 1. Left cephalic vein nonocclusive thrombus. Small Bowel X-Ray 11/05/17 00:00 Examination of the small bowel demonstrates no intraluminal filling defects. There is contrast noted within nondilated large bowel at the 2 hour krystin with contrast seen extending into the rectosigmoid colon. CONCLUSION: Contrast is present within the rectosigmoid by the 2 hour krystin. Discharge Plan - Discharge Disposition Patient Disposition: /Home Health Service - Discharge Condition Condition: Serious - Discharge Order Discharge Orders: Discharge Order (Routine); Ordered 11/07/17 Ordered By: Manisha Lantigua - Discharge Details Anticipated Discharge Date: 11/07/17 - Physicians Team Primary Care Provider: [facility] Attending Provider: Manisha Lantigua Other Providers: Krystin Lance MD
--- NOTE | 2017-11-07 12:24 | P.DCO ---
- Diagnosis (1) Cholecystitis, acute with cholelithiasis - Physical Therapy Order: Evaluate and treat - Home Health Nursing Order: Medical education, Signs/symptoms of disease process, Medication education-adverse effect, Nursing assessment with vital signs - Certification I have seen patient Karen Lei JR on 11/07/17. My clinical findings support the need for the requested home health care services because: Limited mobility due to disease progression I certify that my clinical findings support that this patient is homebound because: Post-op weakness (1) Cholecystitis, acute with cholelithiasis Qualifiers: Cholelithiasis location: gallbladder Biliary obstruction: without biliary obstruction Qualified Code(s): K80.00 - Calculus of gallbladder with acute cholecystitis without obstruction
--- NOTE | 2017-11-07 12:53 | P.PN ---
Subjective Interval history: 10/29: This otherwise healthy 72-year-old active gentleman has had nagging abdominal pain for about a week. It is reached a crescendo pattern where he is buckled over and discomfort and presents to the [facility] emergency department where CAT scan of the abdomen reveals a markedly inflamed gallbladder with surrounding phlegmon/edema. A thoracic aortogram obtained at the same time to rule out dissection is normal. In the emergency department he developed a supraventricular tachycardia in the 160s. This was treated initially with Cardizem at [place] and I have started to load him with beta- brown for prevention of recurrence. Additional immediate problems include acute kidney injury with a creatinine 1.8 related to his inability to keep food down and some vomiting earlier. He denies wheezing or shortness of breath but his CAT scan reveals some minor emphysema. The lung parenchyma is generally sound for his age. He has been loaded with antibiotics and hydrated with isotonic crystalloid. Heart rate is now well controlled. He is medically clear for surgery. His low-level sepsis and dehydration obviously increases risk for surgery. 10/30: Gangrenous gallbladder removed laparoscopically last evening. Patient's general status is much improved today. Renal function much better after aggressive hydration and urine output improved. Patient is alert and conversant. 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 10/31: Patient is developed vomiting and is unable to keep his oral heart medication down. I will discuss possible NG tube placement with the surgery service. He developed atrial fibrillation with rapid ventricular response last evening and required transfer back down to the ICU. Cardizem is on back order so esmolol infusion was used to heart rate. Following discussion with Dr. Valles , it appears to me the safest method to control his heart rate and add amiodarone for rhythm conversion is to replace the esmolol with digoxin now. 11/01: Patient remains in sinus rhythm and is normotensive. Nasogastric output approaching 3 L. Ileus is expected following diffuse peritonitis. He feels much better with the nasogastric tube down. We will follow his electrolytes and fluid balance closely particularly in the context of his supraventricular arrhythmias. 11/02: Patient remains in sinus rhythm with mild hypertension. Will double beta -brown and add lisinopril daily. Nasogastric tube output remains copious, averaging 1400 per shift. He clearly has an ileus at this point and will just need to ride it out. He is developed a marked cellulitis in his left antecubital fossa related to an IV site. This may be from potassium replacement irritation. I suspect I will have to place a central line in him for better access and probable institution of TPN. 11/03: still in sinus rhythm. tolerating sips of clears. clinically improving. denies complaints. needs to get OOB and ambulating. Hospitalist Notes: 11/04: Seen in his bedroom in the presence of nurse, already seen by General Surgery, Ileus resolved, was removed the SONIA drain POD #5, Laparoscopic cholecystectomy perforated Gallbladder, continue with NG tube in place, as per nurse the patient started vomiting and had to be placed new NG tube, has probable CGD stone and was asked for MRCP and may need ERCP, needed for Left Upper extremity US due to edema. 11/05: Discussed with patient and nurse, also Doctor James Lance in to see the patient, he had more than 2000 ml of Gastric output during the night will need to follow I and O and replace fluids, at this time continue IV fluids started by General Surgery, replacing electrolytes and following. has NG tube at low suction. 11/06: Stable in his bedroom, no nausea, vomit or diarrhea, NG removed, in sitting position, no complaint, discussed with nurse Miss Gilbert 11/07/17 Feels better today. No n/v/d/c. Has some cough. No fever ro chills. No n /v/d/c. Will do CXR as also noted WBC at 15K likely reactive Physical Exam Vital signs: Vital Signs 11/06/17 20:00 11/07/17 00:00 11/07/17 04:00 Temperature 98.7 F 97.8 F 98.0 F Pulse Rate 64 66 68 Respiratory Rate 17 18 17 Blood Pressure 152/72 H 168/75 H 150/76 H Pulse Oximetry 96 96 95 11/07/17 08:00 11/07/17 11:29 Temperature 99.3 F 97.8 F Pulse Rate 71 66 Respiratory Rate 16 15 Blood Pressure 165/84 H 147/94 H Pulse Oximetry 95 97 Intake & Output 11/06/17 11/07/17 11/07/17 18:59 06:59 18:59 Intake Total 2004 700 / 700 Output Total 100 / 100 Balance 1905 / 1905 700 / 700 Weight 92.6 kg Intake: IV 2004 KCl Inj 10 MEQ In D5W Inj 1,000 1005 / 1005 ML @ 50 mls/hr IV.CONT .Q20H6M ADITYA Rx#:[id number] NS Inj 1,000 ML @ 100 mls/hr IV 1000 / 1000 .CONT .Q10H ADITYA Rx#:[id number] Oral 700 / 700 Output: Urine 100 / 100 Other: # Voids 3 Date of Last Bowel Movement 11/06/17 11/07/17 # Bowel Movements 2 Narrative: General: No acute distress. Head: Atraumatic, normal Neck: Supple airway widely patent no obstructive noises. Lungs: equal chest rise, nc o2. comfortable respiratory pattern. Heart: normal rate of 62, regular rhythm. sinus. no JVD. Abdomen: soft, minimally tender, nondistended. No peritoneal irritation. Bowel sounds few. Extremities: Warm, well-perfused. better left arm. Neuro: He is alert, conversant, oriented 3 and appropriate. - Urinary Catheter Management Indwelling Urethral Catheter Cath placed during this visit: yes, but has since been removed by the nurse Urethral indwelling: Yes Reason for continuing: Decision to DC catheter Insertion date: 10/29/17 Insertion time: 07:17 Removal date: 11/03/17 Removal time: 10:00 Results - Labs CBC & Chem 7: 11/07/17 03:50 11/07/17 03:50 Laboratory Results - last 24 hr 11/06/17 11/06/17 11/07/17 14:53 14:53 03:50 WBC 15.1 H RBC 3.33 L Hgb 9.8 L Hct 29.2 L MCV 87.7 MCH 29.5 MCHC 33.7 RDW 16.0 Plt Count 444 MPV 9.3 Neut % (Auto) 82.3 H Lymph % (Auto) 6.8 L [place] % (Auto) 7.4 Eos % (Auto) 3.3 Baso % (Auto) 0.2 Neut # (Auto) 12.4 H Lymph # (Auto) 1.0 [place] # (Auto) 1.1 H Eos # (Auto) 0.5 H Baso # (Auto) 0.0 WBC Differential . Differential Comment Auto diff final Sodium 142 Potassium 2.9 L* Chloride 106 Carbon Dioxide 26.9 Anion Gap 9 BUN 8 Creatinine 0.81 Estimated GFR Greater than 89 Random Glucose 107 H Calcium 7.7 L Magnesium 2.0 Total Bilirubin AST ALT Alkaline Phosphatase Total Protein Albumin Lipase 11/07/17 03:50 WBC RBC Hgb Hct MCV MCH MCHC RDW Plt Count MPV Neut % (Auto) Lymph % (Auto) [place] % (Auto) Eos % (Auto) Baso % (Auto) Neut # (Auto) Lymph # (Auto) [place] # (Auto) Eos # (Auto) Baso # (Auto) WBC Differential Differential Comment Sodium 143 Potassium 3.0 L Chloride 106 Carbon Dioxide 26.7 Anion Gap 10 BUN 6 L Creatinine 0.80 Estimated GFR Greater than 89 Random Glucose 88 Calcium 8.0 L Magnesium Total Bilirubin 0.5 AST 166 H ALT 405 H Alkaline Phosphatase 81 Total Protein 5.8 L Albumin 2.1 L Lipase 1170 H - Procedures Laparoscopic cholecystectomy October 29, 2017 Assessment and Plan - Assessment (1) Cholecystitis, acute with cholelithiasis Code(s): K80.00 - Calculus of gallbladder with acute cholecystitis without obstruction Status: Acute (2) Ascending cholangitis Code(s): K83.0 - Cholangitis Status: Acute (3) SVT (supraventricular tachycardia) Code(s): I47.1 - Supraventricular tachycardia Status: Acute (4) KENNY (acute kidney injury) Code(s): N17.9 - Acute kidney failure, unspecified Status: Acute (5) Paroxysmal SVT (supraventricular tachycardia) Code(s): I47.1 - Supraventricular tachycardia Status: Acute - Plan This is a pleasant 72 y/o Male with gangrenous Cholecystitis status post Laparoscopic cholecystectomy 1. Gangrenous Cholecystitis status post Laparoscopic Cholecystectomy improving as per General Surgery was on Empiric IV antibiotics Zosyn and were discontinued, toady needed for new NG tube placement General surgery thinking in residual CBD stone asked for MRCP and may need ERCP. found no biliary obstruction small bowel distention, today Small Bowel follow through did not demonstrated pathology. NG removed by General Surgery, started on Liquid diet. 2. Post Operative Ileus resolved 3. New Onset of Atrial Fibrillation resolved, removed Amiodarone drip continue amiodarone 400 mg BID 4. Acute protein Calorie Malnutrition Moderate now able to eat. start protein boosts. 5. Physical Deconditioning continue Physical Therapy 6. Cellulitis of the left arm treated with Vancomycin. 7. Hypokalemia replaced today will follow with new BMP and Mag level now. 8. Hypertension uncontrolled increased Lisinopril to 20 mg BID and following. 9. Cough will do CXR. Encouraged IS and acapella DVT prophylaxis with Heparin. Encourage activity. Overall impression: This elderly gentleman presented clearly septic from a gangrenous gallbladder with surrounding phlegmon and generalized peritonitis. He had lactic acidosis and acute kidney injury which responded to aggressive fluid resuscitation and broad antibiotic coverage. His supraventricular tachycardia/paroxysmal atrial fibrillation has responded to beta-brown and amiodarone therapy. Following removal of his gangrenous gallbladder on October 29 his renal function was much improved. 2 days ago he converted back to atrial fibrillation with rapid ventricular response after episodes of vomiting and inability to keep his oral cardiac medications down. He is hemodynamically unstable now and critically ill. Fluid and electrolyte losses related to large gastric output are complicating arrhythmia control. Code Status: Full Code. Discussed Condition With: Patient, Nurse Miss Gilbert and relative in the room. Discharge Planning: once cleared by specialists Poss DC later today if cleared by gen surg (1) Cholecystitis, acute with cholelithiasis Qualifiers: Cholelithiasis location: gallbladder Biliary obstruction: without biliary obstruction Qualified Code(s): K80.00 - Calculus of gallbladder with acute cholecystitis without obstruction
[2017-11-07] MEDS ORDERED: Famotidine PF Inj 20 MG/2 ML Vial IV.PUSH SCH (21:00)
== END 2017-11-07 18:34 | disposition home health service (06) ==
LOC: PHED 05:40 → PHEDA 07:33 → N03 09:28 → N07 11-04 20:48
PROVIDERS: ADMIT Hospitalist; ATTEND Hospitalist